=== PATIENT | female | born 1935 | race Hispanic/Latino ===

== ENCOUNTER 2017-04-10 18:01 | Inpatient (IN) | payer MEDICARE, OTHER ==
[2017-04-10] MEDS ORDERED: Sodium Chloride 0.9% 500 ML IV STA (18:12)
--- NOTE | 2017-04-10 18:17 | ED PDOC ---
Arrival/HPI - General Chief Complaint: Abdominal Pain Time Seen by Provider: 04/10/17 18:01 Historian: Patient - History of Present Illness Narrative History of Present Illness (Text): 04/10/17 18:14 A 82 year old female, whose past medical history includes hypertension, presents to the emergency department for abdominal pain and fever, which began yesterday. The patient reports her abdomen pain worsens towards the upper abdomen area and she also admits of having a mild cough. The patient denies any chest pain, shortness of breath, headaches, or any other complaints at this time. Time/Duration: 24 hours Symptom Onset: Sudden Symptom Course: Unchanged Activities at Onset: Light Context: Home Past Medical History - Provider Review Nursing Documentation Reviewed: Yes - Infectious Disease Hx of Infectious Diseases: None - Tetanus Immunization Tetanus Immunization: Unknown - Cardiac Hx Cardiac Disorders: Yes (cad) Hx Congestive Heart Failure: Yes Hx Hypertension: Yes Hx Pacemaker: Yes Hx Peripheral Vascular Disease: Yes - Pulmonary Hx Respiratory Disorders: No - Neurological Hx Neurological Disorder: Yes HX Cerebrovascular Accident: Yes Hx Dizziness: Yes - HEENT Hx HEENT Disorder: Yes (Wears eyeglasses) Hx Cataracts: Yes (right eye no sx) - Renal Hx Renal Disorder: Yes Hx Kidney Stones: Yes - Endocrine/Metabolic Hx Endocrine Disorders: No - Hematological/Oncological Hx Blood Disorders: Yes (blood transfusion) Hx Cancer: Yes (colon) - Integumentary Hx Dermatological Disorder: No - Musculoskeletal/Rheumatological Hx Musculoskeletal Disorders: Yes Hx Falls: Yes - Gastrointestinal Hx Gastrointestinal Disorders: Yes - Genitourinary/Gynecological Hx Genitourinary Disorders: No - Psychiatric Hx Psychophysiologic Disorder: No Hx Substance Use: No - Surgical History Hx Appendectomy: Yes Hx Cholecystectomy: Yes - Anesthesia Hx Anesthesia: Yes - Suicidal Assessment Feels Threatened In Home Enviroment: No Family/Social History - Physician Review Nursing Documentation Reviewed: Yes Family/Social History: No Known Family HX Smoking Status: Former Smoker Hx Alcohol Use: No Hx Substance Use: No Hx Substance Use Treatment: No Allergies/Home Meds Allergies/Adverse Reactions: Allergies levofloxacin [From Levaquin] Allergy (Verified 04/10/17 18:03) RASH methimazole Allergy (Verified 04/10/17 18:03) RASH moxifloxacin Allergy (Verified 04/10/17 18:03) RASH Penicillins Allergy (Verified 04/10/17 18:03) RASH vancomycin Allergy (Verified 04/10/17 18:03) DIZZINESS sulfa Allergy (Uncoded 04/10/17 18:03) DIZZINESS Home Medications: Home Meds Medication Instructions Recorded Confirmed Metoprolol Tartrate [Lopressor] 25 mg PO DAILY 02/05/16 04/10/17 Furosemide [Lasix] 0 mg PO PRN PRN 04/10/17 04/10/17 Review of Systems - Physician Review All systems were reviewed & negative as marked: Yes - Review of Systems Constitutional: Fevers Respiratory: absent: SOB Cardiovascular: absent: Chest Pain Gastrointestinal: Abdominal Pain Neurological: absent: Headache Physical Exam Vital Signs Reviewed: Yes Vital Signs Temp Pulse Resp BP Pulse Ox 04/10/17 21:46 100 F H 85 18 108/58 L 96 04/10/17 20:30 100.2 F H 92 H 18 124/59 L 96 04/10/17 19:45 97 H 16 118/54 L 96 04/10/17 19:31 98 H 16 122/61 96 04/10/17 19:00 101 F H 98 H 18 118/68 97 04/10/17 18:07 103 F H 85 16 130/63 97 Temperature: Febrile Blood Pressure: Normal Pulse: Regular Respiratory Rate: Normal Appearance: Positive for: Well-Appearing, Non-Toxic, Comfortable Pain Distress: None Mental Status: Positive for: Alert and Oriented X 3 - Systems Exam Head: Present: Atraumatic, Normocephalic Pupils: Present: PERRL Extroacular Muscles: Present: EOMI Conjunctiva: Present: Normal Mouth: Present: Moist Mucous Membranes Neck: Present: Normal Range of Motion Respiratory/Chest: Present: Clear to Auscultation, Good Air Exchange. No: Respiratory Distress, Accessory Muscle Use Cardiovascular: Present: Regular Rate and Rhythm, Normal S1, S2. No: Murmurs Abdomen: Present: Tenderness (upper abdominal tenderness ), Normal Bowel Sounds. No: Distention, Peritoneal Signs, Rebound, Guarding, McBurney's Point Tender Back: Present: Normal Inspection Upper Extremity: Present: Normal Inspection. No: Cyanosis, Edema Lower Extremity: Present: Normal Inspection. No: Edema Neurological: Present: GCS=15, CN II-XII Intact, Speech Normal Skin: Present: Warm, Dry, Normal Color. No: Rashes Psychiatric: Present: Alert, Oriented x 3, Normal Insight, Normal Concentration Medical Decision Making ED Course and Treatment: 04/10/17 18:18 Impression: A 82 year old female with a fever and abdominal pain. Plan: -- EKG -- Chest X-ray -- Labs -- Tylenol, Zofran, IV Fluids -- Urinalysis -- Reassess and disposition Prior Visits: Notes and results from previous visits were reviewed. The patient was last seen in the emergency department on 06/15/16 for shortness of breath. The patient was hospitalized. Progress Notes: 04/10/17 18:31 EKG: Ordered, reviewed, and independently interpreted the EKG. Rate : 65 BPM Rhythm : Pace rhythm Interpretation : No ST-segment elevations or depressions, no T-wave inversions, normal intervals. Comparison : No previous EKG for comparison. 04/10/17 21:17 Reviewed sono, US Abdomen shows: Liver: No space-occupying lesions are seen in the liver.There is hepatopedal flow in the main portal vein. Gallbladder and ducts: Gallbladder is surgically absent. There are dilated ducts in the both lobes of the liver. Common duct is dilated. Duct measures 2.56 cm in the garcia hepatis. Duct is dilated to the level of the pancreas. Distal duct measures approximately 2.5 cm in diameter. There are multiple shadowing stones in the common duct. Pancreas: Pancreas is partially obscured by bowel gas. Visualized portion is echogenic. Kidneys: Kidneys are unremarkable. Spleen: Spleen is unremarkable. Aorta and inferior vena cava: Bowel gas limits evaluation of aorta and inferior vena cava IMPRESSION: Prior cholecystectomy, dilated intra-and extrahepatic biliary ducts with choledocholithiasis Additional findings as described above. case discussed with dr cancino. recommends iv antibiotics. 04/10/17 21:[address] De Jesus, covering for Dr. Garrido, who is aware and agrees with plan. Pt will be admitted to Telemetry for pancreatitis and cholangitis under Dr. Garrido's service. Requests Dr. Rosas, Dr. Cardenas, and Dr. Cancino on consult. 04/10/17 21:45 Case discussed with regional vice president surgical sales education sales consultant, who is aware and agrees to evaluate pt. - Lab Interpretations Lab Results: 04/10/17 18:15 04/10/17 18:15 Lab Results 04/10/17 19:00: Urine Color Yellow, Urine Appearance Clear, Urine pH 6.0, Ur Specific [place] 1.020, Urine Protein 30 H, Urine Glucose (UA) Negative, Urine Ketones 15 H, Urine Blood Small H, Urine Nitrate Positive H, Urine Bilirubin Moderate H, Urine Urobilinogen 2.0 H, Ur Leukocyte Esterase Small H, Urine RBC 5 - 10, Urine WBC 10 - 15, Ur Epithelial Cells 6 - 8, Amorphous Sediment Small, Urine Bacteria Many, Urine Other [place]yeast 04/10/17 18:15: Sodium 133, Chloride 98, Potassium 3.3 L, Carbon Dioxide 22, Anion Gap 16, BUN 16, Creatinine 0.9, Est GFR ( Amer) > 60, Est GFR (Non- Af Amer) > 60, Random Glucose 121 H, Calcium 9.6, Total Bilirubin 6.7 H, Direct Bilirubin 5.4 H, AST 221 H, ALT 170 H, Alkaline Phosphatase 178 H, Lactate Dehydrogenase 475, Total Creatine Kinase 21 L, Troponin I 0.07, Total Protein 7.0, Albumin 3.9, Globulin 3.1, Albumin/Globulin Ratio 1.3, Amylase 734 H, Lipase 91596 H 04/10/17 18:15: PT 12.7 H, INR 1.18 H, APTT 26.8 04/10/17 18:15: WBC 13.4 H D, RBC 4.30, Hgb 12.0, Hct 36.4, MCV 84.7, MCH 27.9, MCHC 33.0, RDW 13.5, Plt Count 168, MPV 11.1 H, Gran % 93.4 H, Lymph % (Auto) 2.7 L, Andrews % (Auto) 3.8, Eos % (Auto) 0.0 L, Baso % (Auto) 0.1, Gran # 12.47 H , Lymph # 0.4 L, Andrews # 0.5, Eos # 0.0, Baso # 0.01, Neutrophils % (Manual) 90 H , Band Neutrophils % 5 H, Lymphocytes % (Manual) 3 L, Monocytes % (Manual) 2, Platelet Evaluation Normal, Anisocytosis (manual) Slight 04/10/17 18:15: pO2 42, VBG pH 7.39, VBG pCO2 40.0, VBG HCO3 24.2, VBG Total CO2 25.4, VBG O2 Sat (Calc) 85.1 H, VBG Base Excess -0.7 L, VBG Potassium 3.3 L , Sodium 133.0, Chloride 97.0 L, Glucose 123 H, Lactate 2.8 H, FiO2 21.0, Venous Blood Potassium 3.3 L I have reviewed the lab results: Yes - RAD Interpretation Radiology Orders: 04/10/17 18:12 CHEST PORTABLE [RAD] Stat 04/10/17 18:57 ABDOMEN COMPLETE [US] Stat Wood Heel Flap Trimmer: ED Physician, Radiologist - EKG Interpretation Interpreted by ED Physician: Yes Type: 12 lead EKG - Medication Orders Current Medication Orders: Aztreonam (Azactam 1 Gm) 100 mls @ 100 mls/hr IVPB Q8 JACKY PRN Reason: Protocol Stop: 04/19/17 22:31 Last Admin: 04/11/17 14:36 Dose: 100 mls/hr Metronidazole (Flagyl) 500 mg in 100 mls @ 100 mls/hr IVPB Q8 JACKY PRN Reason: Protocol Stop: 04/19/17 22:32 Last Admin: 04/11/17 13:00 Dose: 100 mls/hr Linezolid (Zyvox 600mg/300ml D5w) 600 mg in 300 mls @ 200 mls/hr IVPB Q12 JACKY PRN Reason: Protocol Stop: 04/19/17 22:33 Last Admin: 04/11/17 09:46 Dose: 200 mls/hr Lactated Ringer's (Lactated Ringer's) 1,000 mls @ 100 mls/hr IV .Q10H [facility] Last Admin: 04/11/17 09:27 Dose: Metoprolol Tartrate (Lopressor) 25 mg PO DAILY [facility] Last Admin: 04/11/17 11:53 Dose: 25 mg Morphine Sulfate (Morphine) 2 mg IVP Q4H PRN PRN Reason: Pain, moderate (4-7) Last Admin: 04/11/17 12:43 Dose: 2 mg Re-Assess: MARQUIS Pain Assessment Document 04/11/17 13:43 RDS (Rec: 04/11/17 14:44 RDS [id number]) Pain Reassessment Is this a pain reassessment? Yes Sleep Is patient sleeping during reassessment? No Presence of Pain Presence of Pain No Ondansetron HCl (Zofran Inj) 8 mg IM Q6 PRN PRN Reason: Nausea/Vomiting Discontinued Medications Acetaminophen (Tylenol 325mg Tab) 975 mg PO STAT STA Stop: 04/10/17 18:13 Last Admin: 04/10/17 18:31 Dose: 975 mg Re-Assess: MARQUIS Pain/Vitals Document 04/10/17 19:31 SRE (Rec: 04/10/17 20:26 [id number]) Pain Reassessment Is This A Pain ReAssessment? Yes Sleep Is patient sleeping during reassessment? No Presence of Pain Presence of Pain Yes Pain Scale Used Pain Scale Used Numeric Location Pain Location Body Site Abdomen Description Burning Scale Used Numeric Sodium Chloride (Sodium Chloride 0.9%) 500 mls @ 999 mls/hr IV .Q31M STA Stop: 04/10/17 18:42 Last Admin: 04/10/17 18:30 Dose: 999 mls/hr Metronidazole (Flagyl) 500 mg in 100 mls @ 100 mls/hr IVPB STAT STA PRN Reason: Protocol Stop: 04/10/17 19:54 Last Admin: 04/10/17 20:00 Dose: 100 mls/hr Ceftriaxone Sodium (Rocephin 1 Gram Ivpb) 1 gm in 100 mls @ 200 mls/hr IVPB STAT STA PRN Reason: Protocol Stop: 04/10/17 19:24 Last Admin: 04/10/17 19:12 Dose: 200 mls/hr Sodium Chloride (Sodium Chloride 0.9%) 1,000 mls @ 999 mls/hr IV .Q1H1M STA Stop: 04/10/17 20:42 Last Admin: 04/10/17 20:32 Dose: 999 mls/hr Lactated Ringer's (Lactated Ringer's) 1,000 mls @ 150 mls/hr IV .Q6H40M [facility] Last Admin: 04/10/17 22:06 Dose: 150 mls/hr Sodium Chloride (Sodium Chloride 0.9%) 1,000 mls @ 80 drops/hr IV .Q24H [facility] Potassium Chloride (Potassium Chloride 10 Meq/100 Ml) 10 meq in 100 mls @ 100 mls/hr IVPB Q2H [facility] Stop: 04/11/17 02:29 Last Admin: 04/11/17 02:58 Dose: 100 mls/hr Morphine Sulfate (Morphine) 2 mg IVP STAT STA Stop: 04/10/17 19:44 Last Admin: 04/10/17 20:30 Dose: 2 mg Re-Assess: MARQUIS Pain Assessment Document 04/10/17 21:30 SRE (Rec: 04/10/17 22:21 SRE [id number]) Pain Reassessment Is this a pain reassessment? Yes Sleep Is patient sleeping during reassessment? No Presence of Pain Presence of Pain No Ondansetron HCl (Zofran Inj) 4 mg IVP STAT STA Stop: 04/10/17 18:12 Last Admin: 04/10/17 18:32 Dose: 4 mg Pneumococcal Polyvalent Vaccine (Pneumovax 23 Vaccine) 0.5 ml IM .ONCE ONE Stop: 04/10/17 23:15 Last Admin: 04/11/17 04:53 Dose: - Scribe Statement The provider has reviewed the documentation as recorded by the Keriibarabella Dale Provider Scribe Attestation: All medical record entries made by the Scribe were at my direction and personally dictated by me. I have reviewed the chart and agree that the record accurately reflects my personal performance of the history, physical exam, medical decision making, and the department course for this patient. I have also personally directed, reviewed, and agree with the discharge instructions and disposition. Disposition/Present on Arrival - Present on Arrival Any Indicators Present on Arrival: No History of DVT/PE: No History of Uncontrolled Diabetes: No Urinary Catheter: No History of Decub. Ulcer: No History Surgical Site Infection Following: None - Disposition Have Diagnosis and Disposition been Completed?: Yes Diagnosis: Cholangitis, Sepsis, Pancreatitis Disposition: HOSPITALIZED Disposition Time: 11:00 Condition: FAIR
[2017-04-10 18:46] LABS: ALB/GLOB RATIO 1.3 (1.1-1.8); ALKALINE PHOSPHATASE 178 U/L (38-133); ALT/SGPT 170 U/L (7-56); AMYLASE 734 U/L (35-125); AST/SGOT 221 U/L (15-39); BILIRUBIN,DIRECT 5.4 mg/dL (0.0-0.4); BILIRUBIN,TOTAL 6.7 mg/dL (0.2-1.3); BLOOD UREA NITROGEN 16 mg/dL (7-21); CALCIUM 9.6 mg/dL (8.4-10.5); CARBON DIOXIDE 22 mmol/L (21-33); CHLORIDE 98 mmol/L (98-107); GFR AFRICAN-AMERICAN > 60; GLUCOSE,RANDOM 121 mg/dL (70-110); POTASSIUM 3.3 mmol/L (3.6-5.0); SODIUM 133 mmol/L (132-148)
[2017-04-10 18:52] LABS: VENOUS BLOOD GAS BASE EXCESS -0.7 mmol/L (0.0-2.0); VENOUS BLOOD PH 7.39 (7.32-7.43)
[2017-04-10] MEDS ORDERED: metroNIDAZOLE IV 500 mg/100 ml 500 MG/100 ML BAG IVPB STA (18:55)
[2017-04-10] MEDS ORDERED: cefTRIAXone 1 gm 1 GM/100 ML BAG IVPB STA (18:55)
[2017-04-10 18:58] LABS: BASO # 0.01 K/mm3 (0.0-2.0); BASO % 0.1 % (0.0-3.0); GRAN # 12.47 (1.4-6.5); GRAN % 93.4 % (50.0-68.0); HEMATOCRIT 36.4 % (36.0-48.0); LYMPH # 0.4 (1.2-3.4); LYMPH % 2.7 % (22.0-35.0); MEAN CELL VOLUME 84.7 fl (80.0-105.0); MEAN CORPUSCULAR HEMOGLOBIN 27.9 pg (25.0-35.0); MEAN PLATELET VOLUME 11.1 fl (7.0-11.0); MONO # 0.5 (0.1-0.6); MONO % 3.8 % (1.0-6.0); PLATELET COUNT 168 10^3/uL (120.0-450.0); RED CELL DISTRIBUTION WIDTH 13.5 % (11.5-14.5); WHITE BLOOD COUNT 13.4 10^3/ul (4.5-11.0)
[2017-04-10 19:05] LABS: INR 1.18 (0.93-1.08); PARTIAL THROMBOPLASTIN TIME 26.8 Seconds (23.7-30.8)
[2017-04-10 19:20] LABS: LIPASE 11518 U/L (23-300)
[2017-04-10] MEDS ORDERED: Sodium Chloride 0.9% 1,000 ML IV STA (19:42)
[2017-04-10] MEDS ORDERED: Morphine 2 mg/ml ISec IVP STA (19:43)
[2017-04-10 19:52] LABS: URINE BILIRUBIN MODERATE (NEGATIVE); URINE BLOOD SMALL (NEGATIVE); URINE GLUCOSE (UA) NEGATIVE (NEGATIVE); URINE KETONE 15 mg/dL (NEGATIVE); URINE LEUKOCYTE ESTERASE SMALL Leu/uL (NEGATIVE); URINE PROTEIN 30 mg/dL (<30 mg/dL)
[2017-04-10 19:55] LABS: URINE APPEARANCE CLEAR (CLEAR); URINE COLOR YELLOW (YELLOW)
[2017-04-10 20:06] LABS: TROPONIN I 0.07 ng/mL
[2017-04-10 20:06] LABS: URINE BACTERIA MANY (NEG)
[2017-04-10 20:07] LABS: URINE AMORPHOUS SEDIMENT SMALL
[2017-04-10 20:48] LABS: BAND 5 % (0-2); NEUTROPHIL 90 % (50.0-70.0); PLATELET ESTIMATE NORMAL (NORMAL)
[2017-04-10 20:49] LABS: ANISOCYTOSIS SLIGHT
--- NOTE | 2017-04-10 20:53 | PCM.SEPTIC ---
Sepsis Progress Note - Reassessment Type Date of Evaluation: 04/10/17 Time of Evaluation: 07:00 Reassessment Type: Non-invasive reassessment - Non Invasive Reassessment Were the most recent vital sign reviewed: Yes Vital Sign (Latest): Temp Pulse Resp BP Pulse Ox 100.2 F H 92 H 18 124/59 L 96 04/10/17 20:30 04/10/17 20:30 04/10/17 20:30 04/10/17 20:30 04/10/17 20:30 Cardiovascular: Yes: Regular Rate, Rhythm Respiratory: Yes: Normal Breath Sounds Capillary Refill: Normal (Less than 2 sec) Pulses: Normal Radial, Normal Dorsalis Pedis, Normal Posterior Tibialis Skin: Normal Color, Warm
--- NOTE | 2017-04-10 20:58 | US ---
EXAM: US Abdomen Complete EXAM DATE/TIME: 04/10/2017 6:57 PM CLINICAL HISTORY: 82 years old, female; Pain; Abdominal pain; Other: Ruq; Prior surgery; Surgery date: 6+ months; Surgery type: Cholecystectomy; Additional info: Ruq pain eval cbd R/O cholangitis TECHNIQUE: Real-time ultrasound of the abdomen (complete) with image documentation. COMPARISON: CT - ABDOMEN W/WO CONTRAST 02/07/2016 8:18:30 AM FINDINGS: Liver: No space-occupying lesions are seen in the liver.There is hepatopedal flow in the main portal vein. Gallbladder and ducts: Gallbladder is surgically absent. There are dilated ducts in the both lobes of the liver. Common duct is dilated. Duct measures 2.56 cm in the garcia hepatis. Duct is dilated to the level of the pancreas. Distal duct measures approximately 2.5 cm in diameter. There are multiple shadowing stones in the common duct. Pancreas: Pancreas is partially obscured by bowel gas. Visualized portion is echogenic. Kidneys: Kidneys are unremarkable. Spleen: Spleen is unremarkable. Aorta and inferior vena cava: Bowel gas limits evaluation of aorta and inferior vena cava IMPRESSION: Prior cholecystectomy, dilated intra-and extrahepatic biliary ducts with choledocholithiasis Additional findings as described above.
[2017-04-10] MEDS ORDERED: Lactated Ringer's 1,000 ML IV SCH (21:45)
[2017-04-10] MEDS ORDERED: Sodium Chloride 0.9% 1,000 ML IV SCH (21:50)
[2017-04-10] MEDS ORDERED: Morphine 2 mg/ml ISec IVP PRN (21:54)
[2017-04-10 22:40] LABS: VENOUS BLOOD GAS BASE EXCESS -1.8 mmol/L (0.0-2.0); VENOUS BLOOD PH 7.36 (7.32-7.43)
--- NOTE | 2017-04-10 22:57 | CP.PCM.CON ---
<Caitlyn Gifford - Last Filed: 04/10/17 22:47> History of Present Illness - History of Present Illness History of Present Illness: General Surgery Dr. Cardenas 82 y/o F w/ PMHx of HTN, CHF, CAD, PVD, CVA BIBA to the ED c/o RUQ pain, N/V. Pt states pain began after eating English food on . Pt reports N/V began Wednesday which pt believed 2/2 indigestion. Pt admits to fever and chills this AM which pompted pt call the ambulance. Pt admits to dizziness/ lightheadedness after vomiting. Pt denies CP, SOB, orthostatics, palpitations, D /C, numbness/tingling, dysuria. PMHx: see above, nephrolithiasis Meds: reviewed in chart Allergies: levofloxacin, methimazole, PCN, vanc, sulfa PSHx: pacemaker, cholecystectomy, appendectomy, hernia repair, bowel resection SHx: denies tobacco, EtOH, drugs FHx: colon Ca Review of Systems - Review of Systems All systems: reviewed and no additional remarkable complaints except (see HPI) Past Patient History - Infectious Disease Hx of Infectious Diseases: None - Tetanus Immunizations Tetanus Immunization: Unknown - Past Social History Smoking Status: Former Smoker - CARDIAC Hx Cardiac Disorders: Yes (cad) Hx Congestive Heart Failure: Yes Hx Hypertension: Yes Hx Pacemaker: Yes Hx Peripheral Vascular Disease: Yes - PULMONARY Hx Respiratory Disorders: No - NEUROLOGICAL Hx Neurological Disorder: Yes HX Cerebrovascular Accident: Yes Hx Dizziness: Yes - HEENT Hx HEENT Problems: Yes (Wears eyeglasses) Hx Cataracts: Yes (right eye no sx) - RENAL Hx Chronic Kidney Disease: Yes Hx Kidney Stones: Yes - ENDOCRINE/METABOLIC Hx Endocrine Disorders: No - HEMATOLOGICAL/ONCOLOGICAL Hx Blood Disorders: Yes (blood transfusion) Hx Cancer: Yes (colon) - INTEGUMENTARY Hx Dermatological Problems: No - MUSCULOSKELETAL/RHEUMATOLOGICAL Hx Musculoskeletal Disorders: Yes Hx Falls: Yes - GASTROINTESTINAL Hx Gastrointestinal Disorders: Yes - GENITOURINARY/GYNECOLOGICAL Hx Genitourinary Disorders: No - PSYCHIATRIC Hx Psychophysiologic Disorder: No Hx Substance Use: No - SURGICAL HISTORY Hx Appendectomy: Yes Hx Cholecystectomy: Yes - ANESTHESIA Hx Anesthesia: Yes Meds Allergies/Adverse Reactions: Allergies Allergy/AdvReac Type Severity Reaction Status Date / Time levofloxacin [From Levaquin] Allergy RASH Verified 04/10/17 18:03 methimazole Allergy RASH Verified 04/10/17 18:03 moxifloxacin Allergy RASH Verified 04/10/17 18:03 Penicillins Allergy RASH Verified 04/10/17 18:03 vancomycin Allergy DIZZINESS Verified 04/10/17 18:03 sulfa Allergy DIZZINESS Uncoded 04/10/17 18:03 - Medications Medications: Current Medications Lactated Ringer's (Lactated Ringer's) 1,000 mls @ 150 mls/hr IV .Q6H40M JACKY Last Admin: 04/10/17 22:06 Dose: 150 mls/hr Aztreonam (Azactam 1 Gm) 100 mls @ 100 mls/hr IVPB Q8 JACKY PRN Reason: Protocol Stop: 04/19/17 22:31 Metronidazole (Flagyl) 500 mg in 100 mls @ 100 mls/hr IVPB Q8 JACKY PRN Reason: Protocol Stop: 04/19/17 22:32 Linezolid (Zyvox 600mg/300ml D5w) 600 mg in 300 mls @ 200 mls/hr IVPB Q12 JACKY PRN Reason: Protocol Stop: 04/19/17 22:33 Metoprolol Tartrate (Lopressor) 25 mg PO DAILY [facility] Morphine Sulfate (Morphine) 2 mg IVP Q4H PRN PRN Reason: Pain, moderate (4-7) Ondansetron HCl (Zofran Inj) 8 mg IM Q6 PRN PRN Reason: Nausea/Vomiting Physical Exam - Constitutional Appears: Non-toxic, No Acute Distress - Head Exam Head Exam: NORMAL INSPECTION - Eye Exam Eye Exam: Normal appearance - ENT Exam ENT Exam: Mucous Membranes Moist - Respiratory Exam Respiratory Exam: NORMAL BREATHING PATTERN. absent: Accessory Muscle Use, Respiratory Distress - Cardiovascular Exam Cardiovascular Exam: absent: Bradycardia, Tachycardia - GI/Abdominal Exam GI & Abdominal Exam: Soft, Tenderness (RUQ TTP). absent: Distended, Guarding, Rebound - Extremities Exam Extremities exam: Positive for: normal inspection - Neurological Exam Neurological exam: Alert, Oriented x3 - Psychiatric Exam Psychiatric exam: Normal Affect, Normal Mood - Skin Skin Exam: Dry, Intact, Normal Color, Warm Results - Vital Signs Recent Vital Signs: Last Vital Signs Temp 100 F H 04/10/17 21:46 Pulse 85 04/10/17 21:46 Resp 18 04/10/17 21:46 BP 108/58 L 04/10/17 21:46 Pulse Ox 96 04/10/17 21:46 - Labs Result Diagrams: 04/10/17 18:15 04/10/17 18:15 Labs: Laboratory Results - last 24 hr 04/10/17 22:00 pO2 96 H VBG pH 7.36 VBG pCO2 42.0 VBG HCO3 23.7 VBG Total CO2 25.0 VBG O2 Sat (Calc) 99.8 H VBG Base Excess -1.8 L VBG Potassium 3.5 L Sodium 134.0 Chloride 104.0 Glucose 104 Lactate 1.3 FiO2 21.0 Venous Blood Potassium 3.5 L - Imaging and Cardiology US - abdomen Status: Image reviewed by me, Report reviewed by me Assessment & Plan - Assessment and Plan (Free Text) Assessment: 82 y/o F w/ ascending cholangitis s/p cholecystectomy in 2013 - IV Abx per ID - Pain management - anti-emetics - Pt needs ERCP - f/u GI recs - monitor vitals - NPO vs CLD Pt discussed w/ Dr. Ronald Gifford DO PGY2 <Bin Cardenas - Last Filed: 04/12/17 10:03> Meds - Medications Medications: Current Medications Hydromorphone HCl (Dilaudid) 0.5 mg IVP Q4H PRN PRN Reason: Pain, moderate (4-7) Last Admin: 04/11/17 21:53 Dose: 0.5 mg Aztreonam (Azactam 1 Gm) 100 mls @ 100 mls/hr IVPB Q8 JACKY PRN Reason: Protocol Stop: 04/19/17 22:31 Last Admin: 04/12/17 05:09 Dose: 100 mls/hr Metronidazole (Flagyl) 500 mg in 100 mls @ 100 mls/hr IVPB Q8 JACKY PRN Reason: Protocol Stop: 04/19/17 22:32 Last Admin: 04/12/17 05:10 Dose: 100 mls/hr Linezolid (Zyvox 600mg/300ml D5w) 600 mg in 300 mls @ 200 mls/hr IVPB Q12 JACKY PRN Reason: Protocol Stop: 04/19/17 22:33 Last Admin: 04/11/17 21:54 Dose: 200 mls/hr Lactated Ringer's (Lactated Ringer's) 1,000 mls @ 100 mls/hr IV .Q10H [facility] Last Admin: 04/12/17 05:10 Dose: Not Given Metoprolol Tartrate (Lopressor) 25 mg PO DAILY [facility] Last Admin: 04/11/17 11:53 Dose: 25 mg Ondansetron HCl (Zofran Inj) 8 mg IM Q6 PRN PRN Reason: Nausea/Vomiting Results - Vital Signs Recent Vital Signs: Last Vital Signs Temp 98.3 F 04/12/17 06:00 Pulse 88 04/12/17 06:00 Resp 20 04/12/17 06:00 BP 159/78 H 04/12/17 06:00 Pulse Ox 96 04/12/17 06:00 - Labs Result Diagrams: 04/12/17 05:15 04/12/17 05:15 Labs: Laboratory Results - last 24 hr 04/11/17 04/12/17 04/12/17 09:30 05:15 05:15 WBC 14.3 H D RBC 3.89 Hgb 10.8 L Hct 33.5 L MCV 86.1 MCH 27.8 MCHC 32.2 RDW 14.3 Plt Count 149 MPV 11.3 H Gran % 77.1 H Lymph % (Auto) 12.0 L [place] % (Auto) 9.9 H Eos % (Auto) 0.9 L Baso % (Auto) 0.1 Gran # 11.02 H Lymph # 1.7 [place] # 1.4 H Eos # 0.1 Baso # 0.01 PT INR APTT Sodium 137 133 Potassium 4.2 4.1 Chloride 104 103 Carbon Dioxide 23 22 Anion Gap 14 12 BUN 14 14 Creatinine 0.9 0.9 Est GFR ( Amer) > 60 > 60 Est GFR (Non-Af Amer) > 60 > 60 Random Glucose 96 85 Calcium 8.5 8.7 Magnesium 1.2 L Total Bilirubin 4.8 H 3.4 H AST 127 H 69 H ALT 125 H 90 H Alkaline Phosphatase 121 132 Total Protein 6.2 6.1 Albumin 3.3 3.0 Globulin 2.9 3.1 Albumin/Globulin Ratio 1.1 1.0 L Amylase 216 H Lipase 468 H 08/28/17 08/28/17 05:15 08:12 WBC RBC Hgb Hct MCV MCH MCHC RDW Plt Count MPV Gran % Lymph % (Auto) [place] % (Auto) Eos % (Auto) Baso % (Auto) Gran # Lymph # [place] # Eos # Baso # PT 12.7 H INR 1.18 H APTT 28.5 Sodium Potassium Chloride Carbon Dioxide Anion Gap BUN Creatinine Est GFR ( Amer) Est GFR (Non-Af Amer) Random Glucose Calcium Magnesium Total Bilirubin AST ALT Alkaline Phosphatase Total Protein Albumin Globulin Albumin/Globulin Ratio Amylase Lipase 54 Assessment & Plan - Assessment and Plan (Free Text) Assessment: Dx: Cholangitis/Pancreatitis HTCAD COBPD Kris: EUS/ERCP with surgery backup No surrgery recommended now Chadwick Cardenas MD FACS
--- NOTE | 2017-04-10 23:05 | CP.PCM.PCO ---
Physician Communication Note - Physician Communication Note Physician Communication Note: Cholangitis-pancreatitis/Needs EUS/ERCP
[2017-04-10 23:14] VITALS: BMI 25.7
[2017-04-10] MEDS ORDERED: Pneumococcal 23-Valent Vaccine IM ONE (23:14)
[2017-04-10] MEDS: Linezolid 600 mg in D5W 300 ml 600 MG/300 ML BAG IVPB SCH (23:40)
[2017-04-10] MEDS: Lactated Ringer's 1,000 ML IV SCH (23:41)
[2017-04-11] MEDS: Aztreonam 1 Gm in NS 100mL 100 ML IVPB SCH ×4 (02:58→21:53)
[2017-04-11] MEDS: metroNIDAZOLE IV 500 mg/100 ml 500 MG/100 ML BAG IVPB SCH ×4 (04:46→21:54)
--- NOTE | 2017-04-11 08:59 | CP.PCM.PN ---
Subjective - Date & Time of Evaluation Date of Evaluation: 04/11/17 Time of Evaluation: 08:55 - Subjective Subjective: General Surgery Dr. Cardenas Pt S&E@bedside. NAEO. Pt reports cholecystectomy performed ~10yrs ago. Pt admits some RUQ pain. denies F/C, N/C, D/C. Pt is NPO. Objective - Vital Signs/Intake and Output Vital Signs (last 24 hours): Temp Pulse Resp BP Pulse Ox 97.8 F 78 20 121/75 97 04/11/17 05:21 04/11/17 05:21 04/11/17 05:21 04/11/17 05:21 04/11/17 05:21 Intake and Output: 04/11/17 04/11/17 06:59 18:59 Intake Total 700 Output Total 900 Balance -200 - Medications Medications: Current Medications Aztreonam (Azactam 1 Gm) 100 mls @ 100 mls/hr IVPB Q8 JACKY PRN Reason: Protocol Stop: 04/19/17 22:31 Last Admin: 04/11/17 05:03 Dose: Not Given Metronidazole (Flagyl) 500 mg in 100 mls @ 100 mls/hr IVPB Q8 JACKY PRN Reason: Protocol Stop: 04/19/17 22:32 Last Admin: 04/11/17 05:03 Dose: Not Given Linezolid (Zyvox 600mg/300ml D5w) 600 mg in 300 mls @ 200 mls/hr IVPB Q12 JACKY PRN Reason: Protocol Stop: 04/19/17 22:33 Last Admin: 04/10/17 23:40 Dose: 200 mls/hr Lactated Ringer's (Lactated Ringer's) 1,000 mls @ 100 mls/hr IV .Q10H JACKY Last Admin: 04/10/17 23:41 Dose: 100 mls/hr Metoprolol Tartrate (Lopressor) 25 mg PO DAILY JACKY Morphine Sulfate (Morphine) 2 mg IVP Q4H PRN PRN Reason: Pain, moderate (4-7) Ondansetron HCl (Zofran Inj) 8 mg IM Q6 PRN PRN Reason: Nausea/Vomiting - Labs Labs: PT 12.7 Seconds (9.9-11.8) H 04/10/17 18:15 INR 1.18 (0.93-1.08) H 04/10/17 18:15 APTT 26.8 Seconds (23.7-30.8) 04/10/17 18:15 - Constitutional Appears: Non-toxic, No Acute Distress - Head Exam Head Exam: NORMAL INSPECTION - Eye Exam Eye Exam: Normal appearance - ENT Exam ENT Exam: Mucous Membranes Moist Additional comments: Icteric mucous membranes - Respiratory Exam Respiratory Exam: NORMAL BREATHING PATTERN. absent: Accessory Muscle Use, Respiratory Distress - Cardiovascular Exam Cardiovascular Exam: absent: Bradycardia, Tachycardia - GI/Abdominal Exam GI & Abdominal Exam: Soft, Tenderness (RUQ TTP). absent: Distended, Guarding, Rigid, Rebound - Extremities Exam Extremities Exam: Normal Inspection - Neurological Exam Neurological Exam: Alert, Awake, Oriented x3 - Psychiatric Exam Psychiatric exam: Normal Affect, Normal Mood - Skin Skin Exam: Dry, Intact, Warm Assessment and Plan - Assessment and Plan (Free Text) Assessment: 82 y/o F w/ ascending cholangitis - IV ABx per ID - Diet per GI - ERCP needed - Pt not candidate for MRCP due to ICD - pain management - continue medical management Pt discussed w/ Dr. Ronald Gifford DO PGY2
[2017-04-11] MEDS: Lactated Ringer's 1,000 ML IV SCH ×2 (09:27→18:50)
[2017-04-11] MEDS: Linezolid 600 mg in D5W 300 ml 600 MG/300 ML BAG IVPB SCH ×2 (09:46→21:54)
[2017-04-11 09:58] LABS: BASO # 0.01 K/mm3 (0.0-2.0); BASO % 0.1 % (0.0-3.0); GRAN # 15.9 (1.4-6.5); GRAN % 81.1 % (50.0-68.0); HEMATOCRIT 34.6 % (36.0-48.0); LYMPH # 2.1 (1.2-3.4); LYMPH % 10.7 % (22.0-35.0); MEAN CELL VOLUME 86.5 fl (80.0-105.0); MEAN CORPUSCULAR HEMOGLOBIN 27.5 pg (25.0-35.0); MEAN CORPUSCULAR HGB CONC 31.8 g/dl (31.0-37.0); MEAN PLATELET VOLUME 10.7 fl (7.0-11.0); MONO # 1.6 (0.1-0.6); MONO % 8.1 % (1.0-6.0); RED CELL DISTRIBUTION WIDTH 14.1 % (11.5-14.5); WHITE BLOOD COUNT 19.6 10^3/ul (4.5-11.0)
[2017-04-11 10:05] LABS: ALB/GLOB RATIO 1.1 (1.1-1.8); ALKALINE PHOSPHATASE 121 U/L (38-133); ALT/SGPT 125 U/L (7-56); AMYLASE 216 U/L (35-125); AST/SGOT 127 U/L (15-39); BILIRUBIN,TOTAL 4.8 mg/dL (0.2-1.3); BLOOD UREA NITROGEN 14 mg/dL (7-21); CALCIUM 8.5 mg/dL (8.4-10.5); CARBON DIOXIDE 23 mmol/L (21-33); CHLORIDE 104 mmol/L (98-107); GFR AFRICAN-AMERICAN > 60; GLUCOSE,RANDOM 96 mg/dL (70-110); LIPASE 468 U/L (23-300); POTASSIUM 4.2 mmol/L (3.6-5.0); SODIUM 137 mmol/L (132-148); TOTAL PROTEIN 6.2 g/dL (5.8-8.3)
--- NOTE | 2017-04-11 13:56 | RAD ---
HISTORY: sepsis COMPARISON: Comparison made with chest radiograph 06/15/2016. This examination was also read in conjunction with CT scan abdomen pelvis 04/11/2017 which imaged both lung bases. FINDINGS: LUNGS: Small bilateral effusions not well delineated on this study. Lungs are hyperinflated consistent with underlying chronic changes of COPD. Small calcified granuloma right lateral lower lung field unchanged. PLEURA: No significant pleural effusion identified, no pneumothorax apparent. CARDIOVASCULAR: Re- demonstrated is a single lead pacemaker. Heart is upper limits of normal/ borderline enlarged. . OSSEOUS STRUCTURES: No significant abnormalities. VISUALIZED UPPER ABDOMEN: Normal. OTHER FINDINGS: None. IMPRESSION: Small bilateral effusions not well delineated on this study. Lungs are hyperinflated consistent with underlying chronic changes of COPD. Small calcified granuloma right lateral lower lung field unchanged. .
--- NOTE | 2017-04-11 17:30 | CT ---
PROCEDURE: CT Abdomen and Pelvis without intravenous contrast HISTORY: Acute pancreatitis COMPARISON: Comparison made with CT scan of the abdomen and pelvis dated 02/07/2016. Comparison also made with CT scan chest 06/16/2016 which imaged the upper abdomen. Both TECHNIQUE: Radiation dose: Total exam DLP = 397.93 mGy-cm. This CT exam was performed using one or more of the following dose reduction techniques: Automated exposure control, adjustment of the mA and/or kV according to patient size, and/or use of iterative reconstruction technique. FINDINGS: LOWER THORAX: Small bilateral effusions and minor bibasilar atelectasis. LIVER: Liver exhibits normal size. There may be some minor central intrahepatic biliary ductal dilatation GALLBLADDER AND BILE DUCTS: Status post cholecystectomy. Dilatation of the common bile duct. PANCREAS: Note that the pancreatic head is poorly delineated on this noncontrast study due to adjacent partially collapsed stomach and previously noted dilated common bile duct. Note that the possibility of mild left pancreatitis involving the head of the pancreas not excluded. The body and tail are atrophic and fatty replaced with a calcific density again noted along the pancreatic tail region unchanged. Correlation with serum lipase and amylase recommended. SPLEEN: Spleen exhibits normal size and attenuation pattern. ADRENALS: There are no adrenal lesions seen. KIDNEYS AND URETERS: Kidneys are relatively symmetric in size. Small amount of fluid and infiltration changes seen in the right perinephric fat nonspecific. Minimal infiltration changes left perinephric fat. Prominent proximal left ureter. No evidence of nephrolithiasis. Six partially calcified atherosclerotic plaque seen along the abdominal aorta and iliac arteries. No evidence of aneurysm. BOWEL: Evaluation of the bowel is limited due to the lack of oral contrast material. Stomach is incompletely distended which presumably accounts for slight thick-walled appearance. Visualized loops of small bowel exhibit normal contour and caliber. No evidence of acute mechanical small bowel obstruction. . Stool and air seen throughout the large bowel. There appears to be an anastomosis along the proximal sigmoid colon. Clinical correlation with surgical history. Surgical clips left mid and lower abdomen. Diverticulosis without definitive radiographic evidence of acute diverticulitis APPENDIX: Radiopaque linear - nodular density seen in the regional wall of the posterior cecum; rule out prior appendectomy surgery. Clinical correlation recommended. PERITONEUM: Unremarkable. No free fluid. No free air. Surgical clips left mid and lower abdomen. Changes of the prior ventral wall hernia repair. LYMPH NODES: No significant adenopathy. BLADDER: Urinary bladder is incompletely distended which may account for slight thick-walled appearance. The possibility of a cystitis not excluded. REPRODUCTIVE: Unremarkable as visualized. BONES: Mild multilevel degenerative spondylosis of the lower thoracic and lumbar spine OTHER FINDINGS: None. IMPRESSION: Evaluation of the pancreas is limited as above. Questionable edematous changes and prominence of the pancreatic head ; rule out pancreatitis ; correlation with serum lipase and amylase recommended. Status post cholecystectomy with moderate dilatation of the common bile duct with mild intrahepatic biliary ductal dilatation. Small bilateral effusions and minor bibasilar atelectasis. Small amount of perinephric fluid and infiltration right kidney. Minimal infiltration seen within the left perinephric fat nonspecific. Postoperative changes of hernia repair. Anastomosis noted along the sigmoid colon ; clinical correlation with surgical history recommended. Findings also suggest prior appendectomy however clinical correlation is recommended. Diverticulosis without evidence of diverticulitis
--- NOTE | 2017-04-11 20:09 | CP.PCM.HP ---
History of Present Illness - History of Present Illness History of Present Illness: patient is an 82 year old female admitted with abdominal pain, nausea, vomiting and fever. She had abdominal pain for 3 days. She came to ER when it was unbearable. CT abdomen showed prominent pancreatic head. Dilated exta and intrahepatic biliary ducts. Pancreatic enzymes elevated. She has remote history of colon cancer, has been in remission. Hypertension controlled on current meds. Present on Admission - Present on Admission Any Indicators Present on Admission: No Review of Systems - Review of Systems Systems not reviewed;Unavailable: Acuity of Condition - Constitutional Constitutional: As Per HPI, Fatigue, Weakness - EENT Eyes: absent: As Per HPI, Blind Spots, Blurred Vision, Change in Vision, Decreased Night Vision, Diplopia, Discharge, Dry Eye, Exophthalmos, Floaters, Irritation, Itchy Eyes, Loss of Peripheral Vision, Pain, Photophobia, Requires Corrective Lenses, Sees Flashes, Spots in Vision, Tunnel Vision, Other Visual Disturbances, Loss of Vision, Other Ears: absent: As Per HPI, Decreased Hearing, Ear Discharge, Ear Pain, Tinnitus, Abnormal Hearing, Disequilibrium, Dizziness, Other Nose/Mouth/Throat: absent: As Per HPI, Epistaxis, Nasal Congestion, Nasal Discharge, Nasal Obstruction, Nasal Trauma, Nose Pain, Post Nasal Drip, Sinus Pain, Sinus Pressure, Bleeding Gums, Change in Voice, Dental Pain, Dry Mouth, Dysphagia, Halitosis, Hoarsness, Lip Swelling, Mouth Lesions, Mouth Pain, Odynophagia, Sore Throat, Throat Swelling, Tongue Swelling, Facial Pain, Neck Pain, Neck Mass, Other - Breasts Breasts: absent: As Per HPI, Change in Shape, Mass, Pain, Nipple Discharge, Nipple Inversion, Skin Changes, Swelling, Other - Cardiovascular Cardiovascular: absent: As Per HPI, Acrocyanosis, Chest Pain, Chest Pain at Rest , Chest Pain with Activity, Claudication, Diaphoresis, Dyspnea, Dyspnea on Exertion, Edema, Irregular Heart Rhythm, Pain Radiating to Arm/Neck/Jaw, Leg Edema, Leg Ulcers, Lightheadedness, Orthopnea, Palpitations, Paroxysmal Nocturnal Dyspnea, Pedal Edema, Radiating Pain, Rapid Heart Rate, Slow Heart Rate, Syncope, Other - Respiratory Respiratory: absent: As Per HPI, Cough, Dyspnea, Hemoptysis, Dyspnea on Exertion , Wheezing, Snoring, Stridor, Pain on Inspiration, Chest Congestion, Excessive Mucous Production, Change in Mucous Color, Pain with Coughing, Other - Gastrointestinal Gastrointestinal: As Per HPI - Genitourinary Genitourinary: absent: As Per HPI, Change in Urinary Stream, Difficulty Urinating, Dysuria, Flank Pain, Hematuria, Pyuria, Nocturia, Urinary Incontinence, Urinary Frequency, Urinary Hesitance, Urinary Urgency, Voiding Freq/Small Amts, Freq UTI, Hx Renal/Bladder Calculi, Hx /Renal Surgery, Bladder Distension, Other - Reproductive: Female Reproductive:Female: absent: As Per HPI, Amenorrhea, Amenorrhea/ Control, Currently Menstual, Cycle <21 Days, Cycle >35 Days, Cycle Variable, Menses 1-7 Days, Menses >/= 8 Days, Menses Variable, Cycle > 4 Weeks Between, No Menses for 6 Months, Heavy Menses, Light Menses, Normal Menses, Spotting Between Cycles , S/P Hysterectomy, Menopausal, Post Menopausal, Premenarche, Abnormal Vaginal Bleeding, Dysmenorrhea, Dyspareunia, Genital Lesions, Genital Pruritis, Pelvic Pain, Prolapse Symptoms, Sexual Dysfunction, Vaginal Discharge, Vaginal Dryness , Vaginal Odor, Vaginal Pruritis, Other - Musculoskeletal Musculoskeletal: absent: As Per HPI, Abnormal Gait, Arthralgias, Atrophy, Back Pain, Deformity, Joint Swelling, Limited Range of Motion, Loss of Height, Muscle Cramps, Muscle Weakness, Myalgias, Neck Pain, Numbness, Radiating Pain into Limb, Stiffness, Tingling, Other - Integumentary Integumentary: absent: As Per HPI, Acne, Alopecia, Bleeding Lesions, Change in Hair, Change in Nails, Change in Pigmentation, Changing Lesions, Dry Skin, Erythema, Furuncle, Hirsutism, Lesions, New Lesions, Non-Healing Lesions, Photosensitivity, Pruritus, Rash, Skin Pain, Skin Ulcer, Sores, Striae, Swelling , Unusual Bruising, Wounds, Jaundice, Other - Neurological Neurological: absent: As Per HPI, Abnormal Gait, Abnormal Hearing, Abnormal Movements, Abnormal Speech, Behavioral Changes, Burning Sensations, Confusion, Convulsions, Disequilibrium, Dizziness, Numbness, Focal Weakness, Frequent Falls , Headaches, Lack of Coordination, Loss of Vision, Memory Loss, Paresthesias, Radicular Pain, Restless Legs, Sensory Deficit, Syncope, Tingling, Tremor, Vertigo, Weakness, Other Visual Disturbances, Other - Psychiatric Psychiatric: absent: As Per HPI, Abnormal Sleep Pattern, Anhedonia, Anxiety, Auditory Hallucinations, Behavioral Changes, Change in Appetite, Change in Libido, Confusion, Depression, Difficulty Concentrating, Hallucinations, Homicidal Ideation, Hopelessness, Irritability, Memory Loss, Mood Swings, Panic Attacks, Paranoia, Suicidal Ideation, Visual Hallucinations, Tactile Hallucinations, Other - Endocrine Endocrine: absent: As Per HPI, Change in Body Appearance, Change in Libido, Cold Intolorance, Deepening of Voice, Excessive Sweating, Fatigue, Flushing, Heat Intolorance, Increase in Ring/Shoe/Hat Size, Palpitations, Polydipsia, Polyphagia, Polyuria, Other - Hematologic/Lymphatic Hematologic: As Per HPI Past Patient History - Infectious Disease Hx of Infectious Diseases: None - Tetanus Immunizations Tetanus Immunization: Unknown - Past Social History Smoking Status: Former Smoker - CARDIAC Hx Cardiac Disorders: Yes (cad) Hx Congestive Heart Failure: Yes Hx Hypertension: Yes Hx Pacemaker: Yes Hx Peripheral Vascular Disease: Yes - PULMONARY Hx Respiratory Disorders: No - NEUROLOGICAL Hx Neurological Disorder: Yes HX Cerebrovascular Accident: Yes Hx Dizziness: Yes - HEENT Hx HEENT Problems: Yes (Wears eyeglasses) Hx Cataracts: Yes (right eye no sx) - RENAL Hx Chronic Kidney Disease: Yes Hx Kidney Stones: Yes - ENDOCRINE/METABOLIC Hx Endocrine Disorders: No - HEMATOLOGICAL/ONCOLOGICAL Hx Blood Disorders: Yes (blood transfusion) Hx Cancer: Yes (colon) - INTEGUMENTARY Hx Dermatological Problems: No - MUSCULOSKELETAL/RHEUMATOLOGICAL Hx Musculoskeletal Disorders: Yes Hx Falls: Yes - GASTROINTESTINAL Hx Gastrointestinal Disorders: Yes - GENITOURINARY/GYNECOLOGICAL Hx Genitourinary Disorders: No - PSYCHIATRIC Hx Psychophysiologic Disorder: No Hx Substance Use: No - SURGICAL HISTORY Hx Appendectomy: Yes Hx Cholecystectomy: Yes - ANESTHESIA Hx Anesthesia: Yes Meds Allergies/Adverse Reactions: Allergies Allergy/AdvReac Type Severity Reaction Status Date / Time levofloxacin [From Levaquin] Allergy RASH Verified 04/10/17 18:03 methimazole Allergy RASH Verified 04/10/17 18:03 moxifloxacin Allergy RASH Verified 04/10/17 18:03 Penicillins Allergy RASH Verified 04/10/17 18:03 vancomycin Allergy DIZZINESS Verified 04/10/17 18:03 sulfa Allergy DIZZINESS Uncoded 04/10/17 18:03 Physical Exam - Constitutional Appears: Well, Non-toxic - Head Exam Head Exam: ATRAUMATIC, NORMAL INSPECTION, NORMOCEPHALIC - Eye Exam Eye Exam: absent: Conjunctival injection, EOMI, Normal appearance, Nystagmus, Periorbital swelling, Periorbital tenderness, PERRL, Scleral icterus - ENT Exam ENT Exam: Mucous Membranes Moist, Normal Exam - Neck Exam Neck exam: Positive for: Normal Inspection - Respiratory Exam Respiratory Exam: Clear to Auscultation Bilateral, NORMAL BREATHING PATTERN - Cardiovascular Exam Cardiovascular Exam: REGULAR RHYTHM, +S1, +S2 - GI/Abdominal Exam GI & Abdominal Exam: Diminished Bowel Sounds, Tenderness - Extremities Exam Extremities exam: Positive for: normal inspection, pedal pulses present - Back Exam Back exam: NORMAL INSPECTION - Neurological Exam Neurological exam: Alert, Normal Gait, Oriented x3, Reflexes Normal - Psychiatric Exam Psychiatric exam: Normal Affect, Normal Mood - Skin Skin Exam: Dry, Intact, Normal Color, Warm Results - Vital Signs Recent Vital Signs: Last Vital Signs Temp 98.2 F 04/11/17 17:31 Pulse 64 04/11/17 18:00 Resp 20 04/11/17 17:31 BP 146/69 04/11/17 17:31 Pulse Ox 97 04/11/17 05:21 - Labs Result Diagrams: 04/11/17 09:30 04/11/17 09:30 Labs: Laboratory Results - last 24 hr 04/10/17 04/11/17 04/11/17 22:00 09:30 09:30 WBC 19.6 H D RBC 4.00 Hgb 11.0 L Hct 34.6 L MCV 86.5 MCH 27.5 MCHC 31.8 RDW 14.1 Plt Count 147 MPV 10.7 Gran % 81.1 H Lymph % (Auto) 10.7 L [place] % (Auto) 8.1 H Eos % (Auto) 0.0 L Baso % (Auto) 0.1 Gran # 15.90 H Lymph # 2.1 [place] # 1.6 H Eos # 0.0 Baso # 0.01 pO2 96 H VBG pH 7.36 VBG pCO2 42.0 VBG HCO3 23.7 VBG Total CO2 25.0 VBG O2 Sat (Calc) 99.8 H VBG Base Excess -1.8 L VBG Potassium 3.5 L Sodium 134.0 137 Chloride 104.0 104 Glucose 104 Lactate 1.3 FiO2 21.0 Potassium 4.2 Carbon Dioxide 23 Anion Gap 14 BUN 14 Creatinine 0.9 Est GFR ( Amer) > 60 Est GFR (Non-Af Amer) > 60 Random Glucose 96 Calcium 8.5 Total Bilirubin 4.8 H AST 127 H ALT 125 H Alkaline Phosphatase 121 Total Protein 6.2 Albumin 3.3 Globulin 2.9 Albumin/Globulin Ratio 1.1 Amylase 216 H Lipase 468 H Venous Blood Potassium 3.5 L Assessment & Plan - Assessment and Plan (Free Text) Plan: 1. Acute pancreatitis 2. Dilated intra, extra hepatic biliary ducts. 3. Sepsis 4. UTI 5. Hyperbilirubinemia 6. Leukocytosis 7. Anemia Plan : NPO except meds. IVF normal saline 100 cc/hr. IV antibiotics -zosyn . ID consult Dr. Flower. GI consult Dr. Cancino. Monitior pancreatic enzymes. CT abdomen , US abdomen to r/o CBD stone. anemia, leukocytosis- will monitor blood counts. Discussed with the patient. Discussed with Dr. Rosa, DR. Cancino. prognosis- guarded
--- NOTE | 2017-04-11 20:11 | CON ---
DATE: 04/11/2017 LOCATION: Patient is seen in room 261, bed 1 today. CHIEF COMPLAINT: Fever and abdominal pain x1 day duration. HISTORY OF PRESENT ILLNESS: This is an 82-year-old female with history of hypertension, coronary artery disease, congestive heart failure, peripheral vascular disease, and cataract, who has multiple allergies including Levaquin, moxifloxacin, penicillin, vancomycin, and sulfa. She is not sure what type of allergy, who has also had pacemaker, cholecystectomy, appendectomy. She is admitted now with cholangitis and pancreatitis. Infectious diseases consultation requested for antibiotic choice. PAST MEDICAL HISTORY: As stated. PAST SURGICAL HISTORY: As stated. ALLERGIES: As stated, Levaquin, methimazole, moxifloxacin, penicillin, vancomycin, sulfa. MEDICATIONS AT HOME: Includes patient to be on Lopressor, Lasix and aspirin. REVIEW OF SYSTEMS: Reveals patient did have fevers, chills, and abdominal pain. Abdominal pain is more on the right side. PHYSICAL EXAMINATION GENERAL: She is in bed. No acute distress. She answered questions appropriately. VITAL SIGNS: Temperature of 97, T-max is 103, pulse of 92, blood pressure is 120/50, respiratory rate of 20. HEENT: Unremarkable. NECK: Supple. LUNGS: Decreased breath sounds. HEART: Normal S1 and S2. ABDOMEN: Mild tenderness in the right upper quadrant. No rebound or guarding. No masses. LABORATORY EXAMINATION: Reveals a white count of 19,600, hemoglobin of 11, platelets of 147. Coagulation is noted. LFTs are elevated. Alkaline phosphatase is elevated, and BUN is 15, creatinine of 0.9. Lipase is 11,000. Urinalysis reveals 10 to 15 WBCs and many bacteria. Microbiology is pending. Patient had a CAT scan of the abdomen and pelvis, which is pending results. Patient did have an ultrasound, which reveals gallbladder is absent and dilated ducts in both lobes of the liver. Common duct is dilated, duct measures 2.5 cm in the garcia hepatis. Level of the pancreatic duct is also dilated. Multiple stones in the common duct. ASSESSMENT AND PLAN: This is an 82-year-old female with hypertension, coronary artery disease, congestive heart failure, peripheral vascular disease, cataract, with sepsis, with choledocholithiasis with pancreatitis with multiple allergies. We treat patient with Zyvox, Azactam and Flagyl pending blood and urine culture. Surgical and GI input, and we will follow closely with you. Sebastian Rosas MD
[2017-04-11] MEDS ORDERED: Phytonadione 10 mg/ml Inj (Adult) SC ONE (20:34)
--- NOTE | 2017-04-11 21:13 | CARD ---
APPROVED REPORT EKG Measurement Heart [id number] [id number] <Conclusion> Electronic ventricular pacemaker Fusion beats
[2017-04-11] MEDS: HYDROmorphone 0.5 mg/0.5 ml ISec IVP PRN (21:53)
--- NOTE | 2017-04-12 00:36 | CP.PCM.CON ---
History of Present Illness - History of Present Illness History of Present Illness: this 82-year-old patient with a past medical history of coronary artery disease CHF. Hypertension present presented to the emergency room complaining of uupper abdominal pain. Patient claims that she ate some Kinyarwanda food on and the symptoms began on Wednesday. Complains of chills and fever. No diarrhea.. No similar previous episode OTHER PAST MEDICAL HISTORY as above SURGICAL HISTORY status post pacemaker, cholecystectomy, appendectomy, hernia repair, colon resection FAMILY HISTORY .noncontributory. SOCIAL HISTORY denies alcohol and smoking REVIEW OF SYSTEMS positive as above other systems reviewed Past Patient History - Infectious Disease Hx of Infectious Diseases: None - Tetanus Immunizations Tetanus Immunization: Unknown - Past Social History Smoking Status: Former Smoker - CARDIAC Hx Cardiac Disorders: Yes (cad) Hx Congestive Heart Failure: Yes Hx Hypertension: Yes Hx Pacemaker: Yes Hx Peripheral Vascular Disease: Yes - PULMONARY Hx Respiratory Disorders: No - NEUROLOGICAL Hx Neurological Disorder: Yes HX Cerebrovascular Accident: Yes Hx Dizziness: Yes - HEENT Hx HEENT Problems: Yes (Wears eyeglasses) Hx Cataracts: Yes (right eye no sx) - RENAL Hx Chronic Kidney Disease: Yes Hx Kidney Stones: Yes - ENDOCRINE/METABOLIC Hx Endocrine Disorders: No - HEMATOLOGICAL/ONCOLOGICAL Hx Blood Disorders: Yes (blood transfusion) Hx Cancer: Yes (colon) - INTEGUMENTARY Hx Dermatological Problems: No - MUSCULOSKELETAL/RHEUMATOLOGICAL Hx Musculoskeletal Disorders: Yes Hx Falls: Yes - GASTROINTESTINAL Hx Gastrointestinal Disorders: Yes - GENITOURINARY/GYNECOLOGICAL Hx Genitourinary Disorders: No - PSYCHIATRIC Hx Psychophysiologic Disorder: No Hx Substance Use: No - SURGICAL HISTORY Hx Appendectomy: Yes Hx Cholecystectomy: Yes - ANESTHESIA Hx Anesthesia: Yes Meds Allergies/Adverse Reactions: Allergies Allergy/AdvReac Type Severity Reaction Status Date / Time levofloxacin [From Levaquin] Allergy RASH Verified 04/10/17 18:03 methimazole Allergy RASH Verified 04/10/17 18:03 moxifloxacin Allergy RASH Verified 04/10/17 18:03 Penicillins Allergy RASH Verified 04/10/17 18:03 vancomycin Allergy DIZZINESS Verified 04/10/17 18:03 sulfa Allergy DIZZINESS Uncoded 04/10/17 18:03 - Medications Medications: Current Medications Hydromorphone HCl (Dilaudid) 0.5 mg IVP Q4H PRN PRN Reason: Pain, moderate (4-7) Last Admin: 04/11/17 21:53 Dose: 0.5 mg Aztreonam (Azactam 1 Gm) 100 mls @ 100 mls/hr IVPB Q8 [facility]ACKY PRN Reason: Protocol Stop: 04/19/17 22:31 Last Admin: 04/11/17 21:53 Dose: 100 mls/hr Metronidazole (Flagyl) 500 mg in 100 mls @ 100 mls/hr IVPB Q8 JACKY PRN Reason: Protocol Stop: 04/19/17 22:32 Last Admin: 04/11/17 21:54 Dose: 100 mls/hr Linezolid (Zyvox 600mg/300ml D5w) 600 mg in 300 mls @ 200 mls/hr IVPB Q12 JACKY PRN Reason: Protocol Stop: 04/19/17 22:33 Last Admin: 04/11/17 21:54 Dose: 200 mls/hr Lactated Ringer's (Lactated Ringer's) 1,000 mls @ 100 mls/hr IV .Q10H [facility] Last Admin: 04/11/17 18:50 Dose: 100 mls/hr Metoprolol Tartrate (Lopressor) 25 mg PO DAILY [facility] Last Admin: 04/11/17 11:53 Dose: 25 mg Ondansetron HCl (Zofran Inj) 8 mg IM Q6 PRN PRN Reason: Nausea/Vomiting Physical Exam - Constitutional Appears: No Acute Distress - Head Exam Head Exam: ATRAUMATIC, NORMOCEPHALIC - Eye Exam Eye Exam: EOMI, Nystagmus, PERRL. absent: Scleral icterus - ENT Exam ENT Exam: Mucous Membranes Moist - Respiratory Exam Respiratory Exam: NORMAL BREATHING PATTERN. absent: Accessory Muscle Use, Rales , Rhonchi - Cardiovascular Exam Cardiovascular Exam: REGULAR RHYTHM, +S1, +S2. absent: JVD - GI/Abdominal Exam GI & Abdominal Exam: Normal Bowel Sounds, Soft, Tenderness Additional comments: mild tenderness in the epigastric and right upper quadrant area no rebound or guarding - Extremities Exam Extremities exam: Positive for: normal inspection. Negative for: calf tenderness - Neurological Exam Neurological exam: Alert Results - Vital Signs Recent Vital Signs: Last Vital Signs Temp 98.2 F 04/11/17 17:31 Pulse 64 04/11/17 18:00 Resp 20 04/11/17 17:31 BP 146/69 04/11/17 17:31 Pulse Ox 97 04/11/17 05:21 - Labs Result Diagrams: 04/11/17 09:30 04/11/17 09:30 Labs: Laboratory Results - last 24 hr 04/11/17 04/11/17 09:30 09:30 WBC 19.6 H D RBC 4.00 Hgb 11.0 L Hct 34.6 L MCV 86.5 MCH 27.5 MCHC 31.8 RDW 14.1 Plt Count 147 MPV 10.7 Gran % 81.1 H Lymph % (Auto) 10.7 L Edgar % (Auto) 8.1 H Eos % (Auto) 0.0 L Baso % (Auto) 0.1 Gran # 15.90 H Lymph # 2.1 Edgar # 1.6 H Eos # 0.0 Baso # 0.01 Sodium 137 Potassium 4.2 Chloride 104 Carbon Dioxide 23 Anion Gap 14 BUN 14 Creatinine 0.9 Est GFR ( Amer) > 60 Est GFR (Non-Af Amer) > 60 Random Glucose 96 Calcium 8.5 Total Bilirubin 4.8 H AST 127 H ALT 125 H Alkaline Phosphatase 121 Total Protein 6.2 Albumin 3.3 Globulin 2.9 Albumin/Globulin Ratio 1.1 Amylase 216 H Lipase 468 H - Imaging and Cardiology CT scan - abdomen Status: Image reviewed by me, Pending Assessment & Plan - Assessment and Plan (Free Text) Assessment: this 82-year-old patient was in the emergency room complaining of epigastric right upper quadrant biliary area nausea or vomiting. Ultrasound showed a dilated common bile duct with a possible stone. Patient history of status post cholecystectomy, Patient has significantly elevated LFTs, dilated common bile duct with possible stone Elevated amylase and lipase level pancreatitis of a gallstone-induced this patient probably has cholangitis gallstone pancreatitis other comorbidities include a coronary artery disease, status post pacemaker placement, hypertension RECOMMENDATIONS 1. Follow with LFTs 2. Continue the antibiotics 3. Follow-up cultures 4. will consider ERCP Risk category ASA 3 MP score 2 - Date & Time Date: 04/11/17 Time: 20:10
[2017-04-12] MEDS: Aztreonam 1 Gm in NS 100mL 100 ML IVPB SCH ×3 (05:09→21:53)
[2017-04-12] MEDS: metroNIDAZOLE IV 500 mg/100 ml 500 MG/100 ML BAG IVPB SCH ×3 (05:10→21:53)
[2017-04-12] MEDS: Lactated Ringer's 1,000 ML IV SCH ×2 (05:10→10:23)
[2017-04-12 06:04] LABS: BASO # 0.01 K/mm3 (0.0-2.0); BASO % 0.1 % (0.0-3.0); EOS # 0.1 (0.0-0.7); EOS % 0.9 % (1.5-5.0); GRAN # 11.02 (1.4-6.5); GRAN % 77.1 % (50.0-68.0); HEMATOCRIT 33.5 % (36.0-48.0); LYMPH # 1.7 (1.2-3.4); MEAN CELL VOLUME 86.1 fl (80.0-105.0); MEAN CORPUSCULAR HEMOGLOBIN 27.8 pg (25.0-35.0); MEAN CORPUSCULAR HGB CONC 32.2 g/dl (31.0-37.0); MEAN PLATELET VOLUME 11.3 fl (7.0-11.0); MONO # 1.4 (0.1-0.6); MONO % 9.9 % (1.0-6.0); RED CELL DISTRIBUTION WIDTH 14.3 % (11.5-14.5); WHITE BLOOD COUNT 14.3 10^3/ul (4.5-11.0)
[2017-04-12 06:10] LABS: INR 1.18 (0.93-1.08); PARTIAL THROMBOPLASTIN TIME 28.5 Seconds (23.7-30.8)
[2017-04-12 06:58] LABS: ALKALINE PHOSPHATASE 132 U/L (38-133); ALT/SGPT 90 U/L (7-56); AST/SGOT 69 U/L (15-39); BILIRUBIN,TOTAL 3.4 mg/dL (0.2-1.3); BLOOD UREA NITROGEN 14 mg/dL (7-21); CALCIUM 8.7 mg/dL (8.4-10.5); CARBON DIOXIDE 22 mmol/L (21-33); CHLORIDE 103 mmol/L (95-110); GFR AFRICAN-AMERICAN > 60; GLUCOSE,RANDOM 85 mg/dL (70-110); MAGNESIUM 1.2 mg/dL (1.7-2.2); POTASSIUM 4.1 mmol/L (3.6-5.0); SODIUM 133 mmol/L (132-148); TOTAL PROTEIN 6.1 g/dL (5.8-8.3)
[2017-04-12] MEDS ORDERED: Indomethacin 50 MG Suppository PR ONE ×2 (07:58→17:25)
[2017-04-12] MEDS ORDERED: Iohexol 240 (50 ml) ONE (07:59)
--- NOTE | 2017-04-12 07:59 | CP.PCM.PN ---
Subjective - Date & Time of Evaluation Date of Evaluation: 04/12/17 Time of Evaluation: 07:00 - Subjective Subjective: General Surgery Dr. Cardenas Pt S&E @bedside. NAEO. continued RUQ pain. denies F/C, N/V. tolerating sips & chips. Objective - Vital Signs/Intake and Output Vital Signs (last 24 hours): Temp Pulse Resp BP Pulse Ox 98.3 F 88 20 159/78 H 96 04/12/17 06:00 04/12/17 06:00 04/12/17 06:00 04/12/17 06:00 04/12/17 06:00 Intake and Output: 04/12/17 04/12/17 06:59 18:59 Output Total 600 Balance -600 - Medications Medications: Current Medications Hydromorphone HCl (Dilaudid) 0.5 mg IVP Q4H PRN PRN Reason: Pain, moderate (4-7) Last Admin: 04/11/17 21:53 Dose: 0.5 mg Aztreonam (Azactam 1 Gm) 100 mls @ 100 mls/hr IVPB Q8 JACKY PRN Reason: Protocol Stop: 04/19/17 22:31 Last Admin: 04/12/17 05:09 Dose: 100 mls/hr Metronidazole (Flagyl) 500 mg in 100 mls @ 100 mls/hr IVPB Q8 JACKY PRN Reason: Protocol Stop: 04/19/17 22:32 Last Admin: 04/12/17 05:10 Dose: 100 mls/hr Linezolid (Zyvox 600mg/300ml D5w) 600 mg in 300 mls @ 200 mls/hr IVPB Q12 [facility]ACK[facility] PRN Reason: Protocol Stop: 04/19/17 22:33 Last Admin: 04/11/17 21:54 Dose: 200 mls/hr Lactated Ringer's (Lactated Ringer's) 1,000 mls @ 100 mls/hr IV .Q10H [facility] Last Admin: 04/12/17 05:10 Dose: Not Given Metoprolol Tartrate (Lopressor) 25 mg PO DAILY [facility] Last Admin: 04/11/17 11:53 Dose: 25 mg Ondansetron HCl (Zofran Inj) 8 mg IM Q6 PRN PRN Reason: Nausea/Vomiting - Labs Labs: 04/12/17 05:15 04/12/17 05:15 PT 12.7 Seconds (9.9-11.8) H 04/12/17 05:15 INR 1.18 (0.93-1.08) H 04/12/17 05:15 APTT 28.5 Seconds (23.7-30.8) 04/12/17 05:15 - Constitutional Appears: Non-toxic, No Acute Distress - Head Exam Head Exam: NORMAL INSPECTION - Eye Exam Eye Exam: Normal appearance - ENT Exam ENT Exam: Mucous Membranes Moist - Respiratory Exam Respiratory Exam: NORMAL BREATHING PATTERN. absent: Accessory Muscle Use, Respiratory Distress - Cardiovascular Exam Cardiovascular Exam: absent: Bradycardia, Tachycardia - GI/Abdominal Exam GI & Abdominal Exam: Soft, Tenderness (minimal RUQ TTP). absent: Distended, Rebound - Neurological Exam Neurological Exam: Alert, Awake, Oriented x3 - Psychiatric Exam Psychiatric exam: Normal Affect, Normal Mood - Skin Skin Exam: Dry, Intact, Normal Color, Warm Assessment and Plan - Assessment and Plan (Free Text) Assessment: 82 y/o F w/ ascending cholangitis s/p open cholecystectomy - ERCP today - pain management - cont IV Abx - f/u GI recommendations Pt discussed w/ Dr. Ronald Gifford DO PGY2
[2017-04-12] MEDS ORDERED: Magnesium Sulfate 2 GM in Sodium Chloride 0.9% 100 ML IVPB STA (08:46)
--- NOTE | 2017-04-12 10:50 | CP.PCM.PCO ---
Physician Communication Note - Physician Communication Note Physician Communication Note: For ERCP-Cardiology clearing patient
[2017-04-12 11:00] LABS: IRON 15 ug/dL (45-180)
[2017-04-12] MEDS: Linezolid 600 mg in D5W 300 ml 600 MG/300 ML BAG IVPB SCH ×2 (11:24→21:54)
--- NOTE | 2017-04-12 15:27 | CP.PCM.PN ---
Subjective - Date & Time of Evaluation Date of Evaluation: 04/12/17 Time of Evaluation: 15:26 - Subjective Subjective: cardiology clearance Objective - Vital Signs/Intake and Output Vital Signs (last 24 hours): Temp Pulse Resp BP Pulse Ox 98.3 F 82 20 153/81 H 96 04/12/17 11:51 04/12/17 14:00 04/12/17 11:51 04/12/17 11:51 04/12/17 06:00 Intake and Output: 04/12/17 04/12/17 06:59 18:59 Output Total 600 Balance -600 - Medications Medications: Current Medications Hydromorphone HCl (Dilaudid) 0.5 mg IVP Q4H PRN PRN Reason: Pain, moderate (4-7) Last Admin: 04/11/17 21:53 Dose: 0.5 mg Aztreonam (Azactam 1 Gm) 100 mls @ 100 mls/hr IVPB Q8 [facility]ACKY PRN Reason: Protocol Stop: 04/19/17 22:31 Last Admin: 04/12/17 14:30 Dose: 100 mls/hr Metronidazole (Flagyl) 500 mg in 100 mls @ 100 mls/hr IVPB Q8 [facility]ACKY PRN Reason: Protocol Stop: 04/19/17 22:32 Last Admin: 04/12/17 15:16 Dose: 100 mls/hr Linezolid (Zyvox 600mg/300ml D5w) 600 mg in 300 mls @ 200 mls/hr IVPB Q12 [facility]ACK[facility] PRN Reason: Protocol Stop: 04/19/17 22:33 Last Admin: 04/12/17 11:24 Dose: 200 mls/hr Lactated Ringer's (Lactated Ringer's) 1,000 mls @ 100 mls/hr IV .Q10H [facility] Last Admin: 04/12/17 10:23 Dose: 100 mls/hr Iron Sucrose 100 mg/ Sodium (Chloride) 105 mls @ 210 mls/hr IVPB DAILY [facility] Stop: 04/15/17 10:29 Metoprolol Tartrate (Lopressor) 25 mg PO DAILY [facility] Last Admin: 04/12/17 11:23 Dose: 25 mg Ondansetron HCl (Zofran Inj) 8 mg IM Q6 PRN PRN Reason: Nausea/Vomiting - Labs Labs: 04/12/17 05:15 04/12/17 05:15 PT 12.7 Seconds (9.9-11.8) H 04/12/17 05:15 INR 1.18 (0.93-1.08) H 04/12/17 05:15 APTT 28.5 Seconds (23.7-30.8) 04/12/17 05:15 Assessment and Plan - Assessment and Plan (Free Text) Assessment: patient cleared for ERCP/EUS as per Dr. Kirk (cardiology) moderate risk.
[2017-04-12] MEDS ORDERED: Rocuronium 10 mg/ml (5 ml) ONE (15:50)
[2017-04-12] MEDS ORDERED: Phenylephrine 10 mg/ml Inj ONE (15:50)
[2017-04-12] MEDS ORDERED: Etomidate 20 mg/10ml Inj IV ONE (16:33)
[2017-04-12] MEDS ORDERED: Propofol 10 mg/ml Inj (20 ML) ONE (16:33)
[2017-04-12 17:34] LABS: FOLATE 15.4 ng/mL
[2017-04-12] MEDS ORDERED: Sodium Chloride 0.9% 1,000 ML IV SCH (18:15)
--- NOTE | 2017-04-12 23:05 | PN ---
DATE OF SERVICE: 04/12/2017SUBJECTIVE: The patient is in bed, in no acute distress. PHYSICAL EXAMINATION: VITAL SIGNS: Temperature is 98, blood pressure is 150/80, respiratory rate is 28, heart rate of 94. HEENT: Unremarkable. NECK: Supple. LUNGS: Decreased breath sounds. HEART: Normal S1 and S2. ABDOMEN: Soft, nontender. LABORATORY DATA: Reveals a white count 14,300, hemoglobin 10, platelets of 149. Chemistry reveals a BUN of 14, creatinine 0.9. Lipase is noted to be decreasing and LFTs are improving. Urinalysis is noted, 10 to 15 wbc's. Microbiology reveals a gram-negative ghislaine in the blood and gram-positive cocci in the blood and change identified is probable strep on both bottles. There is also gram-negative ghislaine in the urine. REVIEW OF ORDERS: Review of patient's Flagyl, Zyvox, and aztreonam. ASSESSMENT AND PLAN: This an 82-year-old female with hypertension, coronary artery disease, congestive heart failure, peripheral vascular disease, cataract and sepsis with choledocholithiasis and pancreatitis and multiple allergy, now with sepsis with gram-negative ghislaine, bacteriemia and gram-positive cocci bacteriemia, probable strep. It is a gram negative ghislaine in the urine, on Zyvox, Azactam, and Flagyl. Patient with multiple allergies including LEVAQUIN, MOXIFLOXACIN, PENICILLIN, VANCOMYCIN AND SULFA. We will check on the identification and sensitivity. Dr. Oneal's communication report is reviewed. Dr. Alvarez's gastroenterology consultation is reviewed. Ascending cholangitis in a patient with a history of cholecystectomy. We will follow closely with you. AMITA POSADA MD
--- NOTE | 2017-04-12 23:16 | CP.PCM.PN ---
Subjective - Date & Time of Evaluation Date of Evaluation: 04/12/17 Time of Evaluation: 10:00 - Subjective Subjective: Comfortable in bed. No nausea, vomting. Mild epigastric pain. ERCP done today showed gastric ulcers, esophagitis. CBD stones. pancreatic enzymes declined. Objective - Vital Signs/Intake and Output Vital Signs (last 24 hours): Temp Pulse Resp BP Pulse Ox 98.4 F 89 17 181/88 H 98 04/12/17 18:50 04/12/17 18:50 04/12/17 18:50 04/12/17 18:50 04/12/17 18:50 Intake and Output: 04/12/17 04/13/17 18:59 06:59 Intake Total 75 Balance 75 - Medications Medications: Current Medications Hydromorphone HCl (Dilaudid) 0.5 mg IVP Q4H PRN PRN Reason: Pain, moderate (4-7) Last Admin: 04/11/17 21:53 Dose: 0.5 mg Aztreonam (Azactam 1 Gm) 100 mls @ 100 mls/hr IVPB Q8 JACKY PRN Reason: Protocol Stop: 04/19/17 22:31 Last Admin: 04/12/17 21:53 Dose: 100 mls/hr Metronidazole (Flagyl) 500 mg in 100 mls @ 100 mls/hr IVPB Q8 JACKY PRN Reason: Protocol Stop: 04/19/17 22:32 Last Admin: 04/12/17 21:53 Dose: 100 mls/hr Linezolid (Zyvox 600mg/300ml D5w) 600 mg in 300 mls @ 200 mls/hr IVPB Q12 JACKY PRN Reason: Protocol Stop: 04/19/17 22:33 Last Admin: 04/12/17 21:54 Dose: 200 mls/hr Lactated Ringer's (Lactated Ringer's) 1,000 mls @ 100 mls/hr IV .Q10H [facility] Last Admin: 04/12/17 10:23 Dose: 100 mls/hr Iron Sucrose 100 mg/ Sodium (Chloride) 105 mls @ 210 mls/hr IVPB DAILY [facility] Stop: 04/15/17 10:29 Sodium Chloride (Sodium Chloride 0.9%) 1,000 mls @ 100 mls/hr IV .Q10H [facility] Last Admin: 04/12/17 21:54 Dose: 100 mls/hr Metoprolol Tartrate (Lopressor) 25 mg PO DAILY [facility] Last Admin: 04/12/17 11:23 Dose: 25 mg Ondansetron HCl (Zofran Inj) 8 mg IM Q6 PRN PRN Reason: Nausea/Vomiting - Labs Labs: 04/12/17 05:15 04/12/17 05:15 PT 12.7 Seconds (9.9-11.8) H 04/12/17 05:15 INR 1.18 (0.93-1.08) H 04/12/17 05:15 APTT 28.5 Seconds (23.7-30.8) 04/12/17 05:15 - Constitutional Appears: Non-toxic - Head Exam Head Exam: ATRAUMATIC, NORMAL INSPECTION, NORMOCEPHALIC - ENT Exam ENT Exam: absent: Mucous Membranes Dry, Mucous Membranes Moist, Normal Exam, Normal External Ear Exam, Normal Oropharynx, TM's Normal Bilaterally - Neck Exam Neck Exam: absent: Full ROM, Lymphadenopathy, Meningismus, Normal Inspection, Tenderness, Thyromegaly - Respiratory Exam Respiratory Exam: Clear to Ausculation Bilateral, NORMAL BREATHING PATTERN - Cardiovascular Exam Cardiovascular Exam: REGULAR RHYTHM, +S1, +S2 - GI/Abdominal Exam GI & Abdominal Exam: Soft, Diminished Bowel Sounds - Back Exam Back Exam: NORMAL INSPECTION - Neurological Exam Neurological Exam: Alert, Oriented x3 - Skin Skin Exam: Normal Color, Warm Assessment and Plan - Assessment and Plan (Free Text) Assessment: Assessment and Plan (Free Text) Plan: 1. Acute pancreatitis 2. Dilated intra, extra hepatic biliary ducts. CBD stones 3. gram negative Sepsis 4. UTI 5. Hyperbilirubinemia 6. Leukocytosis 7. severe iron deficiency Anemia Plan : pancreatitis improving. IV antibiotics- aztreonam, zyvox. IVF- NS 100 cc/hr. iron sucrose 200 mg IV clear liquids form 04/13. pain control with morphine. bed side PT.
--- NOTE | 2017-04-13 00:54 | CON ---
DATE: 04/12/2017 The patient is in room 261, bed 1. REASON FOR CONSULTATION: Cardiac risk stratification, the patient needs ERCP. The patient with nonobstructive coronary artery disease, had slight LV dysfunction with ejection fraction of 45%. HISTORY OF PRESENT ILLNESS: The patient is an 82-year-old female, admitted with abdominal pain, nausea, vomiting and fever 3 days duration. The patient denies any chest pain, shortness of breath or palpitation. The patient is lying flat in bed without any cardiac symptoms. The patient had twice cardiac catheterization, which showed nonobstructive coronary artery disease. PAST MEDICAL HISTORY: Positive for cardiac catheterization twice, nonobstructive coronary artery disease, cath was done in 2004 and second one was 2013. The patient had pacemaker inserted 03/2016. History of paroxysmal atrial fibrillation, psychogenic polydipsia, hypothyroidism, alcohol abuse in the past. PREVIOUS CARDIAC WORKUP: The patient's recent cardiac catheterization was in 2013 that showed normal ejection fraction of 55%, normal coronaries. The patient had prior cardiac catheterization 10/02/2004, which also shows essentially normal coronaries. The patient had pacemaker insertion for sick sinus syndrome. The patient had echo done in 2015 that showed ejection fraction of 55%. Trace aortic regurgitation, trace to mild mitral regurgitation, mild tricuspid regurgitation, RV systolic pressure of 37 mmHg. History of permanent pacemaker insertion. PERSONAL HISTORY: History of alcohol abuse in the past. He says he has stopped drinking 1 year ago. Also, the patient has a history of psychogenic polydipsia. Denies smoking. Prior to stopping, the patient used to use 6-8 case of beer a day. ALLERGIES: THE PATIENT SAYS SHE IS ALLERGIC TO LEVAQUIN, PENICILLIN, VANCOMYCIN, AND SULFA. HOME MEDICATIONS: Lopressor 25 mg p.o. daily, Lasix 40 mg p.o. p.r.n. when she has some swelling of legs, aspirin 81 p.o. daily. PHYSICAL EXAMINATION VITAL SIGNS: Blood pressure 149/69, respirations 20, pulse 83, temperature 97.5. HEENT: Normocephalic. Eyes: Pupil normal. Conjunctiva slightly pale. NECK: JVP low. Carotid equal. Thorax, AP diameter normal. LUNGS: Clear. CARDIOVASCULAR: S1 and S2. Soft systolic murmur. No rub. ABDOMEN: Soft. No tenderness. No organomegaly. Bowel sounds are normal. EXTREMITIES: No clubbing. No cyanosis. LABORATORY DATA: WBC 14.3, hemoglobin 10.8, hematocrit 33.5, platelets 149. Sodium 133, potassium 4.1, BUN 14, creatinine 0.9, magnesium is low 1.2. Total bilirubin 3.4, it was 6.7 before. AST 69, it was 221, ALT 90, it was 170, alkaline phosphatase is 132 which is normal, on 04/10/2017 alkaline phosphatase was 176. Total protein and albumin normal. Prothrombin time 12.7, INR 1.18, APTT 28.5. Chest x-ray with hyperinflated lungs consistent with underlying chronic changes, COPD, small calcified granuloma on the right lateral lobe, lung field unchanged. EKG showed pacemaker rhythm. Abdomen and pelvis CAT scan showed prominence of the pancreatic head status post cholecystectomy, dilatation of the common bile duct, small bilateral plural effusion. DIAGNOSES: Abdominal pain with dilated common duct, history of cholecystectomy, rule out common duct stone with obstruction, chronic obstructive pulmonary disease, history of paroxysmal atrial fibrillation. She had a colon surgery, hypertension, ex-smoker and alcohol abuse before, slight anemia, hemoglobin 10.8, hematocrit 33.5. Liver enzyme elevated, hypomagnesemia. PLAN: Clinically if the patient's cardiac status is stable, can go for ERCP at moderate risk. We will give IV magnesium sulphate, because magnesium is 1.2. The patient already on aztreonam 1 g q. 8 hour, metronidazole 500 mg IV q. 8 hours, Lopressor 25 mg p.o. daily, magnesium sulfate 2 g IV. The patient already received vitamin K injection. Prothrombin time 12.7, INR 1.18, APTT 28.5. We will continue present therapy and we will follow. Javier Kirk MD
[2017-04-13] MEDS: Aztreonam 1 Gm in NS 100mL 100 ML IVPB SCH ×3 (06:05→21:17)
[2017-04-13] MEDS: metroNIDAZOLE IV 500 mg/100 ml 500 MG/100 ML BAG IVPB SCH ×3 (06:06→21:22)
[2017-04-13 06:31] LABS: BASO # 0.01 K/mm3 (0.0-2.0); BASO % 0.1 % (0.0-3.0); EOS # 0.2 (0.0-0.7); EOS % 2.1 % (1.5-5.0); GRAN # 7.71 (1.4-6.5); GRAN % 69.2 % (50.0-68.0); HEMATOCRIT 32.9 % (36.0-48.0); LYMPH % 17.5 % (22.0-35.0); MEAN CELL VOLUME 85.9 fl (80.0-105.0); MEAN CORPUSCULAR HEMOGLOBIN 27.7 pg (25.0-35.0); MEAN CORPUSCULAR HGB CONC 32.2 g/dl (31.0-37.0); MEAN PLATELET VOLUME 11.4 fl (7.0-11.0); MONO # 1.2 (0.1-0.6); MONO % 11.1 % (1.0-6.0); RED CELL DISTRIBUTION WIDTH 14.2 % (11.5-14.5); WHITE BLOOD COUNT 11.1 10^3/ul (4.5-11.0)
[2017-04-13 06:33] LABS: ALB/GLOB RATIO 0.9 (1.1-1.8); ALKALINE PHOSPHATASE 135 U/L (38-133); ALT/SGPT 64 U/L (7-56); AMYLASE 60 U/L (35-125); AST/SGOT 44 U/L (15-39); BILIRUBIN,TOTAL 2.3 mg/dL (0.2-1.3); BLOOD UREA NITROGEN 12 mg/dL (7-21); CALCIUM 8.6 mg/dL (8.4-10.5); CARBON DIOXIDE 26 mmol/L (21-33); CHLORIDE 104 mmol/L (95-110); GFR AFRICAN-AMERICAN > 60; GLUCOSE,RANDOM 88 mg/dL (70-110); MAGNESIUM 1.5 mg/dL (1.7-2.2); POTASSIUM 3.6 mmol/L (3.6-5.0); SODIUM 136 mmol/L (132-148); TOTAL PROTEIN 5.6 g/dL (5.8-8.3)
--- NOTE | 2017-04-13 07:07 | CP.PCM.PCO ---
Physician Communication Note - Physician Communication Note Physician Communication Note: Much improved/C/S pending/Need CD Clearance [id number] stones)
--- NOTE | 2017-04-13 07:32 | CP.PCM.PN ---
<ShanaeCaitlyn - Last Filed: 04/13/17 07:34> Subjective - Date & Time of Evaluation Date of Evaluation: 04/13/17 Time of Evaluation: :29 - Subjective Subjective: General Surgery Progress note for Dr. Cardenas PT S&E at bedside. NATHALIA. Patient had ERCP yesterday with stone removal. Patient states shes tolerating pain well. Patient denies F/C, N/V, Abdominal pain Objective - Vital Signs/Intake and Output Vital Signs (last 24 hours): Temp Pulse Resp BP Pulse Ox 98.4 F 71 20 144/70 100 04/13/17 06:00 04/13/17 06:00 04/13/17 06:00 04/13/17 06:00 04/13/17 06:00 Intake and Output: 04/13/17 04/13/17 06:59 18:59 Intake Total 0 1800 Output Total 1400 Balance -1400 1800 - Medications Medications: Current Medications Hydromorphone HCl (Dilaudid) 0.5 mg IVP Q4H PRN PRN Reason: Pain, moderate (4-7) Last Admin: 04/11/17 21:53 Dose: 0.5 mg Aztreonam (Azactam 1 Gm) 100 mls @ 100 mls/hr IVPB Q8 [facility]ACK[facility] PRN Reason: Protocol Stop: 04/19/17 22:31 Last Admin: 04/13/17 06:05 Dose: 100 mls/hr Metronidazole (Flagyl) 500 mg in 100 mls @ 100 mls/hr IVPB Q8 [facility]ACK[facility] PRN Reason: Protocol Stop: 04/19/17 22:32 Last Admin: 04/13/17 06:06 Dose: 100 mls/hr Linezolid (Zyvox 600mg/300ml D5w) 600 mg in 300 mls @ 200 mls/hr IVPB Q12 [facility] PRN Reason: Protocol Stop: 04/19/17 22:33 Last Admin: 04/12/17 21:54 Dose: 200 mls/hr Iron Sucrose 100 mg/ Sodium (Chloride) 105 mls @ 210 mls/hr IVPB DAILY [facility] Stop: 04/15/17 10:29 Sodium Chloride (Sodium Chloride 0.9%) 1,000 mls @ 100 mls/hr IV .Q10H [facility] Last Admin: 04/12/17 21:54 Dose: 100 mls/hr Metoprolol Tartrate (Lopressor) 25 mg PO DAILY [facility] Last Admin: 04/12/17 11:23 Dose: 25 mg Ondansetron HCl (Zofran Inj) 8 mg IM Q6 PRN PRN Reason: Nausea/Vomiting - Labs Labs: 04/13/17 05:10 04/13/17 05:10 PT 12.7 Seconds (9.9-11.8) H 04/12/17 05:15 INR 1.18 (0.93-1.08) H 04/12/17 05:15 APTT 28.5 Seconds (23.7-30.8) 04/12/17 05:15 Assessment and Plan - Assessment and Plan (Free Text) Assessment: 82 y/o F w/ ascending cholangitis s/p open cholecystectomy in the past. Choledocholithiasis s/p ERCP with stone removal. Plan: c/w with current pain management c/w IV Abx f/u GI recommendations continue diet per GI Patient does not need any surgical intervention at this time Caitlyn Jolly DO PGY1 <Bin Cardenas - Last Filed: 04/14/17 10:09> Objective - Vital Signs/Intake and Output Vital Signs (last 24 hours): Temp Pulse Resp BP Pulse Ox 97.7 F 79 20 160/81 H 97 04/14/17 06:00 04/14/17 06:00 04/14/17 06:00 04/14/17 06:00 04/14/17 06:00 Intake and Output: 04/14/17 04/14/17 06:59 18:59 Intake Total 420 Balance 420 - Medications Medications: Current Medications Clonidine HCl (Catapres) 0.1 mg PO Q6H PRN PRN Reason: Systolic Blood Pressure Aztreonam (Azactam 1 Gm) 100 mls @ 100 mls/hr IVPB Q8 [facility] PRN Reason: Protocol Stop: 04/19/17 22:31 Last Admin: 04/14/17 06:31 Dose: 100 mls/hr Metronidazole (Flagyl) 500 mg in 100 mls @ 100 mls/hr IVPB Q8 [facility] PRN Reason: Protocol Stop: 04/19/17 22:32 Last Admin: 04/14/17 06:32 Dose: 100 mls/hr Linezolid (Zyvox 600mg/300ml D5w) 600 mg in 300 mls @ 200 mls/hr IVPB Q12 [facility] PRN Reason: Protocol Stop: 04/19/17 22:33 Last Admin: 04/13/17 21:23 Dose: 200 mls/hr Iron Sucrose 100 mg/ Sodium (Chloride) 105 mls @ 210 mls/hr IVPB DAILY [facility] Stop: 04/15/17 10:29 Last Admin: 04/13/17 09:12 Dose: 210 mls/hr Magnesium Oxide (Mag-Ox) 400 mg PO BID [facility] Stop: 04/15/17 23:59 Metoprolol Tartrate (Lopressor) 25 mg PO BID [facility] Last Admin: 04/13/17 17:18 Dose: 25 mg Ondansetron HCl (Zofran Inj) 8 mg IM Q6 PRN PRN Reason: Nausea/Vomiting Potassium Phos/Sodium Phos (Neutra-Phos) 1 pkt PO TID [facility] Stop: 04/15/17 23:59 - Labs Labs: 04/14/17 06:00 04/14/17 06:00 PT 12.7 Seconds (9.9-11.8) H 04/12/17 05:15 INR 1.18 (0.93-1.08) H 04/12/17 05:15 APTT 28.5 Seconds (23.7-30.8) 04/12/17 05:15 Assessment and Plan - Assessment and Plan (Free Text) Assessment: 3 large Common duct stones removed-Multiple residual stones impacted-Will need ERCP-Spyglass removal on an interval basis Chadwick Cardenas MD FACS
[2017-04-13] MEDS ORDERED: Magnesium Sulfate 2 GM in Sodium Chloride 0.9% 100 ML IV ONE (08:04)
[2017-04-13] MEDS: Linezolid 600 mg in D5W 300 ml 600 MG/300 ML BAG IVPB SCH ×2 (09:12→21:23)
--- NOTE | 2017-04-13 10:50 | CP.PCM.PN ---
<Dayana Jauregui - Last Filed: 04/13/17 10:41> Subjective - Date & Time of Evaluation Date of Evaluation: 04/13/17 Time of Evaluation: 09:10 - Subjective Subjective: seen and examined at the bedside this morning, chart was reviewed. Patient status post EGD/ERCP,patient found to have on endoscopy chronic gastritis and multiple duodenal ulcers with clean base, ERCP revealed multiple stones contained in the main bile duct, patient underwent a sphincterotomy with biliary tree sleep and a 10 Lithuanian by 9 cm plastic stent placed in common bile duct. CBD stones were found with partial removal. Patient denies any nausea, vomiting, fever or chills. Her abdominal pain has improved. No reports of acute overnight events. Objective - Vital Signs/Intake and Output Vital Signs (last 24 hours): Temp Pulse Resp BP Pulse Ox 98.4 F 71 20 144/70 100 04/13/17 06:00 04/13/17 09:11 04/13/17 06:00 04/13/17 09:11 04/13/17 06:00 Intake and Output: 04/13/17 04/13/17 06:59 18:59 Intake Total 0 1800 Output Total 1400 Balance -1400 1800 - Medications Medications: Current Medications Hydromorphone HCl (Dilaudid) 0.5 mg IVP Q4H PRN PRN Reason: Pain, moderate (4-7) Last Admin: 04/11/17 21:53 Dose: 0.5 mg Aztreonam (Azactam 1 Gm) 100 mls @ 100 mls/hr IVPB Q8 JACKY PRN Reason: Protocol Stop: 04/19/17 22:31 Last Admin: 04/13/17 06:05 Dose: 100 mls/hr Metronidazole (Flagyl) 500 mg in 100 mls @ 100 mls/hr IVPB Q8 JACKY PRN Reason: Protocol Stop: 04/19/17 22:32 Last Admin: 04/13/17 06:06 Dose: 100 mls/hr Linezolid (Zyvox 600mg/300ml D5w) 600 mg in 300 mls @ 200 mls/hr IVPB Q12 JACKY PRN Reason: Protocol Stop: 04/19/17 22:33 Last Admin: 04/13/17 09:12 Dose: 200 mls/hr Iron Sucrose 100 mg/ Sodium (Chloride) 105 mls @ 210 mls/hr IVPB DAILY [facility] Stop: 04/15/17 10:29 Last Admin: 04/13/17 09:12 Dose: 210 mls/hr Sodium Chloride (Sodium Chloride 0.9%) 1,000 mls @ 100 mls/hr IV .Q10H [facility] Last Admin: 04/12/17 21:54 Dose: 100 mls/hr Potassium Chloride (Potassium Chloride 20 Meq/100 Ml) 20 meq in 100 mls @ 50 mls/hr IVPB ONCE ONE Stop: 04/13/17 12:14 Metoprolol Tartrate (Lopressor) 25 mg PO DAILY [facility] Last Admin: 04/13/17 09:11 Dose: 25 mg Ondansetron HCl (Zofran Inj) 8 mg IM Q6 PRN PRN Reason: Nausea/Vomiting - Labs Labs: 04/13/17 05:10 04/13/17 05:10 PT 12.7 Seconds (9.9-11.8) H 04/12/17 05:15 INR 1.18 (0.93-1.08) H 04/12/17 05:15 APTT 28.5 Seconds (23.7-30.8) 04/12/17 05:15 - Constitutional Appears: No Acute Distress - Head Exam Head Exam: NORMOCEPHALIC - Eye Exam Eye Exam: Normal appearance. absent: Scleral icterus - ENT Exam ENT Exam: Mucous Membranes Moist - Neck Exam Neck Exam: Normal Inspection - Respiratory Exam Respiratory Exam: Clear to Ausculation Bilateral, NORMAL BREATHING PATTERN. absent: Respiratory Distress - Cardiovascular Exam Cardiovascular Exam: +S1, +S2 - GI/Abdominal Exam GI & Abdominal Exam: Soft, Tenderness (right upper quadrant mild), Normal Bowel Sounds. absent: Guarding, Rebound - Extremities Exam Extremities Exam: Normal Capillary Refill. absent: Calf Tenderness, Pedal Edema - Neurological Exam Neurological Exam: Alert, Awake, Oriented x3 Assessment and Plan - Assessment and Plan (Free Text) Assessment: Assessment: Improved Epigastric pain/right upper quadrant pain Status post EGD/ERCP: duodenal ulcers, gastritis, status post sphincterotomy with biliary sweep and status post stent placement Dilated common bile duct rule out CBD stone History of cholecystectomy Elevated liver enzymes, with elevated amylase and lipase consider gallstone pancreatitis/cholangitis History of coronary artery disease That is post pacemaker placement Hypertension Plan: Continue to trend liver enzymes, which is improving Continue antibiotics Follow-up biliary aspirate Start clear liquid Patient will need repeat ERCP with spyglass Continue PPI and DVT prophylaxis Seen and discussed with Dr. Cancino <Cecelia Cancino V - Last Filed: 04/13/17 23:26> Objective - Vital Signs/Intake and Output Vital Signs (last 24 hours): Temp Pulse Resp BP Pulse Ox 97.9 F 72 20 172/88 H 96 04/13/17 16:00 04/13/17 18:54 04/13/17 16:00 04/13/17 18:54 04/13/17 16:00 Intake and Output: 04/13/17 04/14/17 18:59 06:59 Intake Total 1800 300 Balance 1800 300 - Medications Medications: Current Medications Clonidine HCl (Catapres) 0.1 mg PO Q6H PRN PRN Reason: Systolic Blood Pressure Hydromorphone HCl (Dilaudid) 0.5 mg IVP Q4H PRN PRN Reason: Pain, moderate (4-7) Last Admin: 04/13/17 21:26 Dose: 0.5 mg Aztreonam (Azactam 1 Gm) 100 mls @ 100 mls/hr IVPB Q8 JACKY PRN Reason: Protocol Stop: 04/19/17 22:31 Last Admin: 04/13/17 21:17 Dose: 100 mls/hr Metronidazole (Flagyl) 500 mg in 100 mls @ 100 mls/hr IVPB Q8 JACKY PRN Reason: Protocol Stop: 04/19/17 22:32 Last Admin: 04/13/17 21:22 Dose: 100 mls/hr Linezolid (Zyvox 600mg/300ml D5w) 600 mg in 300 mls @ 200 mls/hr IVPB Q12 JACKY PRN Reason: Protocol Stop: 04/19/17 22:33 Last Admin: 04/13/17 21:23 Dose: 200 mls/hr Iron Sucrose 100 mg/ Sodium (Chloride) 105 mls @ 210 mls/hr IVPB DAILY [facility] Stop: 04/15/17 10:29 Last Admin: 04/13/17 09:12 Dose: 210 mls/hr Metoprolol Tartrate (Lopressor) 25 mg PO BID [facility] Last Admin: 04/13/17 17:18 Dose: 25 mg Ondansetron HCl (Zofran Inj) 8 mg IM Q6 PRN PRN Reason: Nausea/Vomiting - Labs Labs: 04/13/17 05:10 04/13/17 05:10 PT 12.7 Seconds (9.9-11.8) H 04/12/17 05:15 INR 1.18 (0.93-1.08) H 04/12/17 05:15 APTT 28.5 Seconds (23.7-30.8) 04/12/17 05:15 Attending/Attestation - Attestation Notes (Text): 04/13/17 23:26 p
--- NOTE | 2017-04-13 18:01 | PN ---
DATE: 04/13/2017 REASON FOR CONSULTATION: Preop evaluation, risk stratification for ERCP, stones in common bile duct. SUBJECTIVE: The patient denies any chest pain, shortness of breath, or any palpitation lying flat on the bed. OBJECTIVE: GENERAL: Not in apparent distress, status post ERCP, possibly needs another ERCP in a day or two. VITAL SIGNS: Temperature afebrile. Heart rate 71, blood pressure 144/70. HEENT: PERRLA intact. NECK: Supple. No carotid bruit or thyromegaly. CHEST: Clear to auscultation. HEART: S1 and S2, regular. ABDOMEN: Soft. EXTREMITIES: Clubbing, cyanosis negative. LABORATORY DATA: Blood workup as follows; WBC 11, hemoglobin 10.7, hematocrit 32.9, platelet count 136. Chemistry shows sodium 136, potassium 3.6, chloride 104, carbon dioxide 26, anion gap of 10, BUN 12, creatinine 0.9. Total protein 5.6, albumin 2.7, globulin ratio 0.9. IMPRESSION: An 82-year-old female with past medical history significant for nonobstructive coronary artery disease status post cardiac catheterization twice in 2004 and 2013, history of permanent pacemaker in 03/2016, history of paroxysmal atrial fibrillation, psychogenic polydipsia, hypothyroidism, history of alcohol abuse, admitted with multiple stones in common bile duct, ascending cholangitis, pancreatitis. Yesterday underwent ERCP. The patient remained stable cardiac garcia, no chest pain, no shortness of breath, no palpitation. RECOMMENDATION: Continue broad-spectrum antibiotic. Continue low dose beta-anna. If blood pressure remains high, we are going to add on Cardizem, but for now, we will continue beta-anna. Discontinue telemetry. Additionally, the patient needs another ERCP. The patient is cleared from cardiology point of view to go for ERCP as no evidence of congestive heart failure. It is mixed with baseline paroxysmal atrial fibrillation with history of angina. Last catheterization, in 2015 shows ejection fraction of 55%, trace aortic regurgitation, trace to mild mitral regurgitation, mild tricuspid regurgitation, RV systolic pressure 37; history of permanent pacemaker, [employer] single chamber VVI, stable. We will follow with you. We will supplement potassium and magnesium. I will repeat the lab in the morning and discontinue telemetry. Thank you Dr. Cardenas for providing me the opportunity in taking care of this patient. Javier Swanson MD [facility] # [id number]
--- NOTE | 2017-04-13 19:27 | PN ---
DATE: 04/13/2017 SUBJECTIVE: The patient seen in bed, in no acute distress. Nontoxic. The patient was seen earlier this morning. PHYSICAL EXAMINATION: VITAL SIGNS: Temperature is 97, blood pressure is 170/90, respiratory rate of 20, heart rate of 66. HEENT: Unremarkable. NECK: Supple. LUNGS: Decreased breath sounds. HEART: Normal S1 and S2. ABDOMEN: Soft. LABORATORY DATA: Reveals a white count is down to 11,000, hemoglobin to 10, platelets of 136. Coagulation is noted and BUN of 12, creatinine of 0.9. LFTs are noted. Urinalysis is noted. Blood cultures have Gram-negative ghislaine and Gram-positive cocci in both bottles. The Gram-positive cocci is probable strep. The Gram-negative ghislaine has not been identified. There is also E. coli in the urine. Pansensitive E. coli. MEDICATIONS: The patient is currently on aztreonam, Flagyl and Zyvox. ASSESSMENT AND PLAN: An 82-year-old female with past medical of hypertension, coronary artery disease, congestive heart failure, peripheral vascular disease, cataract, admitted with sepsis with choledocholithiasis and pancreatitis with multiple allergies including LEVAQUIN, MOXIFLOXACIN, PENICILLIN, VANCOMYCIN AND SULFA and with Gram-positive cocci, probable streptococcus and Gram-negative ghislaine bacteriemia and with ascending cholangitis, history of cholecystectomy, status post procedure day #1. The patient was taken to the OR yesterday. The patient had an endoscopy and endoscopic retrograde cholangiopancreatography, endoscopic retrograde cholangiopancreatography with sphincterotomy and endoscopic retrograde cholangiopancreatography with balloon extraction stones done by Dr. Cancino and Dayana Jauregui' note is reviewed. We will check on the identification, the Gram-positive cocci believed to be streptococcus and a Gram-negative ghislaine in the blood. We will check on the repeat blood cultures and Dr. Oneal's communication report is reviewed. Dr. Caitlyn Jolly's note is reviewed. We will order an echocardiogram to rule out endocarditis and check on the repeat cultures. We will make further recommendations upon the availability of initial workup. The patient is much improved today. Sebastian Rosas MD
[2017-04-13] MEDS: HYDROmorphone 0.5 mg/0.5 ml ISec IVP PRN (21:26)
--- NOTE | 2017-04-14 03:29 | PN ---
DATE: 04/13/2017 SUBJECTIVE: The patient has no complaints of any chest pain, no shortness of breath, no headaches or dizziness. PHYSICAL EXAMINATION: VITAL SIGNS: Temperature is 97.9, pulse is 72, blood pressure is 172/88, and respiration is 18. GENERAL: The patient is lying in bed, flat, comfortable. HEENT: No oral lesion. Anicteric sclerae. Moist mucosa. NECK: No JVD, adenopathy, or thyromegaly. CARDIOVASCULAR: S1 and S2, regular. No murmurs, rubs, or gallops. LUNGS: Clear to auscultation bilaterally. No wheeze, rales, or rhonchi. ABDOMEN: Bowel sounds are positive, soft, nontender and nondistended. EXTREMITIES: no cyanosis, clubbing or edema. LABORATORY DATA: White count 11.1, hemoglobin 10.6, and creatinine 0.9. ASSESSMENT: 1. Status post esophagogastroduodenoscopy. 2. Gastritis. 3. Duodenal ulcer. 4. Insertion of stent in the common bile duct. 5. Common bile duct stone removal. 6. Ascending cholangitis. 7. Sepsis. 8. Coronary artery disease. 9. Hypertension. PLAN: The patient is currently comfortable. She has improvement of her white count. She has blood cultures that were positive. She will get repeat blood work tomorrow. She is on Zofran for nausea. She is on linezolid because of multiple allergies. She has an allergy to PENICILLIN. She is on clonidine as needed for hypertension. She is on iron replacement. Manjit Ventura MD
[2017-04-14] MEDS: Aztreonam 1 Gm in NS 100mL 100 ML IVPB SCH ×3 (06:31→22:21)
[2017-04-14] MEDS: metroNIDAZOLE IV 500 mg/100 ml 500 MG/100 ML BAG IVPB SCH (06:32)
[2017-04-14 06:53] LABS: BASO # 0.02 K/mm3 (0.0-2.0); BASO % 0.2 % (0.0-3.0); EOS # 0.4 (0.0-0.7); EOS % 4.9 % (1.5-5.0); GRAN # 5.13 (1.4-6.5); HEMATOCRIT 34.3 % (36.0-48.0); LYMPH # 2.3 (1.2-3.4); LYMPH % 25.2 % (22.0-35.0); MEAN CELL VOLUME 85.1 fl (80.0-105.0); MEAN CORPUSCULAR HEMOGLOBIN 27.3 pg (25.0-35.0); MEAN CORPUSCULAR HGB CONC 32.1 g/dl (31.0-37.0); MEAN PLATELET VOLUME 10.6 fl (7.0-11.0); MONO # 1.1 (0.1-0.6); MONO % 12.7 % (1.0-6.0)
[2017-04-14 07:16] LABS: ALKALINE PHOSPHATASE 132 U/L (38-133); ALT/SGPT 58 U/L (7-56); AST/SGOT 34 U/L (15-39); BILIRUBIN,TOTAL 1.7 mg/dL (0.2-1.3); BLOOD UREA NITROGEN 9 mg/dL (7-21); CALCIUM 8.5 mg/dL (8.4-10.5); CARBON DIOXIDE 24 mmol/L (21-33); CHLORIDE 106 mmol/L (98-107); GFR AFRICAN-AMERICAN > 60; GLUCOSE,RANDOM 82 mg/dL (70-110); MAGNESIUM 1.7 mg/dL (1.7-2.2); PHOSPHOROUS 1.8 mg/dL (2.5-4.5); POTASSIUM 3.6 mmol/L (3.6-5.0); SODIUM 137 mmol/L (132-148); TOTAL PROTEIN 5.4 g/dL (5.8-8.3)
[2017-04-14] MEDS ORDERED: Iodixanol 320 MG/ML 100 ML BOTTLE IV ONE (09:23)
[2017-04-14] MEDS: Potassium & Sodium Phosphate PO SCH ×3 (09:54→17:53)
[2017-04-14] MEDS: Magnesium Oxide 400 mg Tab UD PO SCH ×2 (09:54→17:53)
[2017-04-14] MEDS: Linezolid 600 mg in D5W 300 ml 600 MG/300 ML BAG IVPB SCH ×2 (09:54→22:22)
--- NOTE | 2017-04-14 10:32 | CT ---
PROCEDURE: CT Chest with contrast (Pulmonary Angiogram) HISTORY: sob COMPARISON: None available. TECHNIQUE: Axial computed tomography images were obtained of the chest in the pulmonary arterial phase of enhancement. Coronal and sagittal reformatted images were created and reviewed. Intravenous contrast dose: 100 cc of Visipaque Radiation dose: Total exam DLP = 366 mGy-cm. This CT exam was performed using one or more of the following dose reduction techniques: Automated exposure control, adjustment of the mA and/or kV according to patient size, and/or use of iterative reconstruction technique. FINDINGS: PULMONARY ARTERIES: Unremarkable. No pulmonary embolism. AORTA: No acute findings. No thoracic aortic aneurysm. LUNGS: Unremarkable. No nodule, mass or pulmonary consolidation. Calcified granuloma in the right lung PLEURAL SPACES: Moderate size bilateral pleural effusions are seen right greater than left. HEART: Unremarkable. No cardiomegaly. No significant pericardial effusion. LYMPH NODES: No lymphadenopathy. BONES, CHEST WALL: Unremarkable. No fracture or destructive lesion OTHER FINDINGS: Unremarkable. IMPRESSION: No evidence of pulmonary embolus. Moderate size bilateral pleural effusions right greater than left
--- NOTE | 2017-04-14 12:07 | CP.PCM.PN ---
Subjective - Date & Time of Evaluation Date of Evaluation: 04/14/17 Time of Evaluation: 10:05 - Subjective Subjective: Comfortable in bed, no fevers, not in distress, no abdominal pain currently. Objective - Vital Signs/Intake and Output Vital Signs (last 24 hours): Temp Pulse Resp BP Pulse Ox 97.7 F 79 20 160/81 H 97 04/14/17 06:00 04/14/17 09:54 04/14/17 06:00 04/14/17 09:54 04/14/17 06:00 Intake and Output: 04/14/17 04/14/17 06:59 18:59 Intake Total 420 Balance 420 - Medications Medications: Current Medications Clonidine HCl (Catapres) 0.1 mg PO Q6H PRN PRN Reason: Systolic Blood Pressure Aztreonam (Azactam 1 Gm) 100 mls @ 100 mls/hr IVPB Q8 JACKY PRN Reason: Protocol Stop: 04/19/17 22:31 Last Admin: 04/14/17 06:31 Dose: 100 mls/hr Metronidazole (Flagyl) 500 mg in 100 mls @ 100 mls/hr IVPB Q8 JACKY PRN Reason: Protocol Stop: 04/19/17 22:32 Last Admin: 04/14/17 06:32 Dose: 100 mls/hr Linezolid (Zyvox 600mg/300ml D5w) 600 mg in 300 mls @ 200 mls/hr IVPB Q12 JACKY PRN Reason: Protocol Stop: 04/19/17 22:33 Last Admin: 04/14/17 09:54 Dose: 200 mls/hr Iron Sucrose 100 mg/ Sodium (Chloride) 105 mls @ 210 mls/hr IVPB DAILY [facility]S [facility] 234 BEDS AT THE [facility] Stop: 04/15/17 10:29 Last Admin: 04/14/17 09:54 Dose: 210 mls/hr Magnesium Oxide (Mag-Ox) 400 mg PO BID [facility]S [facility]CLUDE 234 BEDS AT THE [facility] Stop: 04/15/17 23:59 Last Admin: 04/14/17 09:54 Dose: 400 mg Metoprolol Tartrate (Lopressor) 25 mg PO BID [facility] 234 BEDS AT THE [facility] Last Admin: 04/14/17 09:54 Dose: 25 mg Ondansetron HCl (Zofran Inj) 8 mg IM Q6 PRN PRN Reason: Nausea/Vomiting Potassium Phos/Sodium Phos (Neutra-Phos) 1 pkt PO TID [facility]ACK[facility] Stop: 04/15/17 23:59 Last Admin: 04/14/17 09:54 Dose: 1 pkt - Labs Labs: 04/14/17 06:00 04/14/17 06:00 PT 12.7 Seconds (9.9-11.8) H 04/12/17 05:15 INR 1.18 (0.93-1.08) H 04/12/17 05:15 APTT 28.5 Seconds (23.7-30.8) 04/12/17 05:15 - Constitutional Appears: Non-toxic, No Acute Distress - Head Exam Head Exam: NORMAL INSPECTION - Respiratory Exam Respiratory Exam: Decreased Breath Sounds - Cardiovascular Exam Cardiovascular Exam: +S1, +S2 - GI/Abdominal Exam GI & Abdominal Exam: Soft. absent: Tenderness Assessment and Plan - Assessment and Plan (Free Text) Plan: Assessment Sepsis due to acute cholangitis with associated gram positive cocci and E. coli bacteremia, and acute pancreatitis S/P ERCP with sphinceterotomy, extraction of biliary stones POD #2 HTN CAD peripheral vascular disease cataracts chronic CHF Plan Antibiotics options are limited due to the patient's allergy profile - continue Zyvox, Azactam and Flagyl pending final identification and sensitivities of the gram positive cocci in the blood and bile fluid follow up repeat blood cx taken from yesterday, as well as 2D echo to rule out vegetations will continue to monitor clinically
--- NOTE | 2017-04-14 12:17 | PN ---
DATE: 04/14/2017 REASON FOR CONSULTATION: Followup preop evaluation, risk stratification for ERCP, status post removal of gallbladder stone in common bile duct. SUBJECTIVE: The patient denies any chest pain, complained of mild epigastric pain earlier, now it is resolved. PHYSICAL EXAMINATION: GENERAL: Lying flat in the bed not in apparent distress. VITAL SIGNS: As follows: Temperature afebrile, heart rate 79, and blood pressure 150/81. HEENT: PERRLA intact. NECK: Supple. No carotid bruit or thyromegaly. CHEST: Clear to auscultation. HEART: S1 and S2 regular. ABDOMEN: Soft. EXTREMITIES: Clubbing and cyanosis negative, mild tenderness in the epigastric noted. LABORATORY DATA: Blood workup as follows; WBC 9, hemoglobin 11, hematocrit 34.3, and platelet count 130. Chemistry shows sodium 137, potassium 3.6, chloride 106, carbon dioxide 24, anion gap of 11, BUN 9, creatinine 0.7, magnesium 1.7, phosphorous 1.8, total protein 5.4, albumin 2.7, and albumin-globulin ratio 1. IMPRESSION: An 82-year-old female with a past medical history significant for nonobstructive coronary artery disease, status post cardiac catheterization twice in 2004 and 2013, history of permanent pacemaker 03/2016, history of paroxysmal atrial fibrillation secondary to polydipsia, hypothyroidism, admitted with history of alcohol abuse, admitted with multiple stone in common bile duct, ascending cholangitis, pancreatitis, underwent yesterday endoscopic retrograde cholangiopancreatography, now WBC is decreasing, as well as, bilirubin is decreasing as well as liver functions improved, now the patient has hypokalemia and hypophosphatemia. The patient is developing [id number] protein-calorie malnutrition, which was not present on admission. RECOMMENDATIONS: Supplement phosphate. Increase nutritional support as tolerated. Excessive control of blood pressure on p.r.n. clonidine. Continue antibiotic. We will add on increased renal support. Echo was ordered by Dr. Rosas to rule out endocarditis. We will follow with you. Thank you Dr. Cardenas for providing the opportunity in taking care of Flor Chandler. Javier Swanson MD
--- NOTE | 2017-04-14 15:28 | CARD ---
APPROVED REPORT EXAM: Two-dimensional and M-mode echocardiogram with Doppler and color Doppler. INDICATION Infection:Rule out subacute bacterial endocarditis 2D DIMENSIONS Left Atrium (2D)4.5 (1.6-4.0cm)IVSd1.1 (0.7-1.1cm) LVDd4.3 (3.9-5.9cm)PWd1.2 (0.7-1.1cm) M-Mode DIMENSIONS Aortic Root3.10 (2.2-3.7cm)Aortic Cusp Exc.1.50 (1.5-2.0cm) Aortic Valve AoV Peak Nsgpwlsp018.0cm/Albertina Peak GR.13mmHgAI P 1/2 [id number] Mitral Valve MV E Jephbmzk064.0cm/sMV A Prienqld63.6cm/sE/A ratio1.2 TDI Lateral E' Peak V10.00cm/sMedial E' Peak V6.53cm/sE/Lateral E'12.1 E/Medial E'18.5 Pulmonary Valve PV Peak Jlqyzvvp66.3cm/sPV Peak Grad.3mmHg Tricuspid Valve TR Peak [id number]/sRAP [id number] Peak Gr.30mmHg [id number] LEFT VENTRICLE The left ventricle is normal size. There is borderline concentric left ventricular hypertrophy. The left ventricular function is normal.EF-55% There is normal LV segmental wall motion. The left ventricular diastolic function is normal. No left ventricle thrombus noted on this study. There is no ventricular septal defect visualized. There is no left ventricular aneurysm. There is no mass noted in the left ventricle. RIGHT VENTRICLE The right ventricle is mildly dilated. There is normal right ventricular wall thickness. Systolic function is mildly reduced. There is a pacemaker lead in the right ventricle. ATRIA The left atrium is mildly dilated. The right atrium is borderline dilated. There is a catheter/pacemaker lead seen in the right atrium. The interatrial septum is intact with no evidence for an atrial septal defect. AORTIC VALVE The aortic valve is thickened but opens well. There is trace to mild aortic regurgitation. Aortic sclerosis Vs mild As There is no aortic valvular vegetation. MITRAL VALVE The mitral valve is thickened but opens well. Mitral regurgitation is mild. There is no mitral valve stenosis. There is no evidence of mitral valve prolapse. TRICUSPID VALVE The tricuspid valve leaflets are thickened , but open well. There is mild tricuspid regurgitation.RVSp-40 mmof Hg There is no tricuspid valve stenosis. There is no tricuspid valve prolapse or vegetation. PULMONIC VALVE The pulmonary valve is normal in structure. There is trace pulmonic valvular regurgitation. There is no pulmonic valvular stenosis. GREAT VESSELS The aortic root is normal in size. The ascending aorta is normal in size. The pulmonary artery is normal. The IVC is normal in size and collapses >50% with inspiration. PERICARDIAL EFFUSION There is no pleural effusion. There is a trace to small pericardial effusion. <Conclusion> The left ventricle is normal size. There is borderline concentric left ventricular hypertrophy. The left ventricular function is normal.EF-55% There is trace to mild aortic regurgitation. Aortic sclerosis Vs mild As Mitral regurgitation is mild. There is mild tricuspid regurgitation.RVSp-40 mmof Hg The IVC is normal in size and collapses >50% with inspiration. There is a trace to small pericardial effusion. There is a pacemaker lead in the right ventricle. There is a catheter/pacemaker lead seen in the right atrium. No vegetattion or thrombus noted.
--- NOTE | 2017-04-14 16:30 | CP.PCM.PN ---
Subjective - Date & Time of Evaluation Date of Evaluation: 04/14/17 Time of Evaluation: 15:12 - Subjective Subjective: seen and examined at the bedside, in no acute overnight events reported. Tolerating oral intake. No reports of fever, chills or abdominal pain. Had SOB earlier today. No resp distress, now, comfortable. Objective - Vital Signs/Intake and Output Vital Signs (last 24 hours): Temp Pulse Resp BP Pulse Ox 97.7 F 79 20 160/81 H 97 04/14/17 06:00 04/14/17 09:54 04/14/17 06:00 04/14/17 09:54 04/14/17 06:00 Intake and Output: 04/14/17 04/14/17 06:59 18:59 Intake Total 420 480 Balance 420 480 - Medications Medications: Current Medications Clonidine HCl (Catapres) 0.1 mg PO Q6H PRN PRN Reason: Systolic Blood Pressure Aztreonam (Azactam 1 Gm) 100 mls @ 100 mls/hr IVPB Q8 JACKY PRN Reason: Protocol Stop: 04/19/17 22:31 Last Admin: 04/14/17 06:31 Dose: 100 mls/hr Linezolid (Zyvox 600mg/300ml D5w) 600 mg in 300 mls @ 200 mls/hr IVPB Q12 JACKY PRN Reason: Protocol Stop: 04/19/17 22:33 Last Admin: 04/14/17 09:54 Dose: 200 mls/hr Iron Sucrose 100 mg/ Sodium (Chloride) 105 mls @ 210 mls/hr IVPB DAILY JACKY Stop: 04/15/17 10:29 Last Admin: 04/14/17 09:54 Dose: 210 mls/hr Magnesium Oxide (Mag-Ox) 400 mg PO BID JACKY Stop: 04/15/17 23:59 Last Admin: 04/14/17 09:54 Dose: 400 mg Metoprolol Tartrate (Lopressor) 25 mg PO BID [facility] Last Admin: 04/14/17 09:54 Dose: 25 mg Metronidazole (Flagyl) 500 mg PO Q8 JACKY Stop: 04/19/17 22:32 Ondansetron HCl (Zofran Inj) 8 mg IM Q6 PRN PRN Reason: Nausea/Vomiting Potassium Phos/Sodium Phos (Neutra-Phos) 1 pkt PO TID [facility] Stop: 04/15/17 23:59 Last Admin: 04/14/17 09:54 Dose: 1 pkt - Labs Labs: 04/14/17 06:00 04/14/17 06:00 PT 12.7 Seconds (9.9-11.8) H 04/12/17 05:15 INR 1.18 (0.93-1.08) H 04/12/17 05:15 APTT 28.5 Seconds (23.7-30.8) 04/12/17 05:15 - Constitutional Appears: No Acute Distress - Eye Exam Eye Exam: Normal appearance. absent: Scleral icterus - ENT Exam ENT Exam: Mucous Membranes Moist - Neck Exam Neck Exam: Normal Inspection - Respiratory Exam Respiratory Exam: NORMAL BREATHING PATTERN. absent: Respiratory Distress - Cardiovascular Exam Cardiovascular Exam: +S1, +S2 - GI/Abdominal Exam GI & Abdominal Exam: Soft. absent: Distended, Guarding, Tenderness, Normal Bowel Sounds, Rebound - Extremities Exam Extremities Exam: absent: Calf Tenderness, Pedal Edema - Neurological Exam Neurological Exam: Alert, Awake, Oriented x3 - Skin Skin Exam: Dry, Warm Assessment and Plan - Assessment and Plan (Free Text) Assessment: Assessment: Status post EGD/ERCP: duodenal ulcers, gastritis, status post sphincterotomy with biliary sweep and status post stent placement Dilated common bile duct rule out CBD stone History of cholecystectomy Elevated liver enzymes, with elevated amylase and lipase consider gallstone pancreatitis/cholangitis History of coronary artery disease That is post pacemaker placement Hypertension Plan: Continue to trend liver enzymes, which is improving Continue antibiotics Follow-up biliary aspirate heart healthy diet Patient will need repeat ERCP with spyglass 3-4 WEEKS start actigall see orders Continue PPI and DVT prophylaxis Discussed with Dr. Cancino ADDEDNUDM: pt had ct angio, negative for PE, reveal bilateral effusion R>L
--- NOTE | 2017-04-14 23:59 | CP.PCM.PN ---
Subjective - Date & Time of Evaluation Date of Evaluation: 04/14/17 Time of Evaluation: 23:59 - Subjective Subjective: S: Patient was seen because she had requested a sleeping pill. Has no other complaints now. Medical record was reviewed. O:VSS. Alert, awake, not in distress. LUNGS: Normal breathing pattern. A: Adjustment insomnia. P:Benadryl 25 mg PO now. Objective - Vital Signs/Intake and Output Vital Signs (last 24 hours): Temp Pulse Resp BP Pulse Ox 98.1 F 74 18 187/85 H 99 04/14/17 16:30 04/14/17 17:54 04/14/17 16:30 04/14/17 17:54 04/14/17 16:30 Intake and Output: 04/14/17 04/15/17 18:59 06:59 Intake Total 480 300 Output Total 4 Balance 480 296 - Medications Medications: Current Medications Clonidine HCl (Catapres) 0.1 mg PO Q6H PRN PRN Reason: Systolic Blood Pressure Aztreonam (Azactam 1 Gm) 100 mls @ 100 mls/hr IVPB Q8 JACKY PRN Reason: Protocol Stop: 04/19/17 22:31 Last Admin: 04/14/17 22:21 Dose: 100 mls/hr Linezolid (Zyvox 600mg/300ml D5w) 600 mg in 300 mls @ 200 mls/hr IVPB Q12 JACKY PRN Reason: Protocol Stop: 04/19/17 22:33 Last Admin: 04/14/17 22:22 Dose: 200 mls/hr Iron Sucrose 100 mg/ Sodium (Chloride) 105 mls @ 210 mls/hr IVPB DAILY JACKY Stop: 04/15/17 10:29 Last Admin: 04/14/17 09:54 Dose: 210 mls/hr Magnesium Oxide (Mag-Ox) 400 mg PO BID [facility] Stop: 04/15/17 23:59 Last Admin: 04/14/17 17:53 Dose: 400 mg Metoprolol Tartrate (Lopressor) 25 mg PO BID [facility] Last Admin: 04/14/17 17:54 Dose: 25 mg Metronidazole (Flagyl) 500 mg PO Q8 JACKY Stop: 04/19/17 22:32 Last Admin: 04/14/17 22:21 Dose: 500 mg Ondansetron HCl (Zofran Inj) 8 mg IM Q6 PRN PRN Reason: Nausea/Vomiting Potassium Phos/Sodium Phos (Neutra-Phos) 1 pkt PO TID [facility] Stop: 04/15/17 23:59 Last Admin: 04/14/17 17:53 Dose: 1 pkt Ursodiol (Actigall) 300 mg PO BID [facility] Last Admin: 04/14/17 17:54 Dose: 300 mg - Labs Labs: 04/14/17 06:00 04/14/17 06:00 PT 12.7 Seconds (9.9-11.8) H 04/12/17 05:15 INR 1.18 (0.93-1.08) H 04/12/17 05:15 APTT 28.5 Seconds (23.7-30.8) 04/12/17 05:15
[2017-04-15] MEDS: Aztreonam 1 Gm in NS 100mL 100 ML IVPB SCH ×3 (05:29→21:04)
[2017-04-15 06:16] LABS: BASO # 0.03 K/mm3 (0.0-2.0); BASO % 0.4 % (0.0-3.0); EOS # 0.4 (0.0-0.7); EOS % 4.1 % (1.5-5.0); GRAN # 4.81 (1.4-6.5); GRAN % 56.9 % (50.0-68.0); HEMATOCRIT 35.1 % (36.0-48.0); LYMPH # 2.1 (1.2-3.4); LYMPH % 24.5 % (22.0-35.0); MEAN CELL VOLUME 85.4 fl (80.0-105.0); MEAN CORPUSCULAR HEMOGLOBIN 27.5 pg (25.0-35.0); MEAN CORPUSCULAR HGB CONC 32.2 g/dl (31.0-37.0); MEAN PLATELET VOLUME 10.7 fl (7.0-11.0); MONO # 1.2 (0.1-0.6); MONO % 14.1 % (1.0-6.0); WHITE BLOOD COUNT 8.5 10^3/ul (4.5-11.0)
[2017-04-15 06:26] LABS: ALB/GLOB RATIO 0.9 (1.1-1.8); ALKALINE PHOSPHATASE 145 U/L (38-133); ALT/SGPT 48 U/L (7-56); AST/SGOT 38 U/L (15-39); BILIRUBIN,TOTAL 1.5 mg/dL (0.2-1.3); BLOOD UREA NITROGEN 6 mg/dL (7-21); CALCIUM 8.5 mg/dL (8.4-10.5); CARBON DIOXIDE 26 mmol/L (21-33); CHLORIDE 103 mmol/L (95-110); GFR AFRICAN-AMERICAN > 60; GLUCOSE,RANDOM 88 mg/dL (70-110); MAGNESIUM 1.3 mg/dL (1.7-2.2); PHOSPHOROUS 2.3 mg/dL (2.5-4.5); POTASSIUM 3.6 mmol/L (3.6-5.0); SODIUM 137 mmol/L (132-148); TOTAL PROTEIN 5.8 g/dL (5.8-8.3)
[2017-04-15 07:54] VITALS: RESP 20
[2017-04-15] MEDS: Magnesium Oxide 400 mg Tab UD PO SCH ×2 (10:03→17:01)
[2017-04-15] MEDS: Potassium & Sodium Phosphate PO SCH ×3 (10:03→17:02)
--- NOTE | 2017-04-15 10:25 | CP.PCM.PN ---
Subjective - Date & Time of Evaluation Date of Evaluation: 04/15/17 Time of Evaluation: 09:30 - Subjective Subjective: Seen and examined at the bedside this morning, now denies any nausea, vomiting, had mild abdominal pain this morning, resolved. Tolerating oral intake, had a bowel movement this morning, no diarrhea or bleeding. Denies any shortness of breath or chest pain. No acute overnight events reported. Objective - Vital Signs/Intake and Output Vital Signs (last 24 hours): Temp Pulse Resp BP Pulse Ox 97.8 F 80 20 178/87 H 99 04/15/17 07:53 04/15/17 10:04 04/15/17 07:53 04/15/17 10:04 04/15/17 07:53 Intake and Output: 04/15/17 04/15/17 06:59 18:59 Intake Total 420 Output Total 4 Balance 416 - Medications Medications: Current Medications Clonidine HCl (Catapres) 0.1 mg PO Q6H PRN PRN Reason: Systolic Blood Pressure Aztreonam (Azactam 1 Gm) 100 mls @ 100 mls/hr IVPB Q8 JACKY PRN Reason: Protocol Stop: 04/19/17 22:31 Last Admin: 04/15/17 05:29 Dose: 100 mls/hr Linezolid (Zyvox 600mg/300ml D5w) 600 mg in 300 mls @ 200 mls/hr IVPB Q12 JACKY PRN Reason: Protocol Stop: 04/19/17 22:33 Last Admin: 04/14/17 22:22 Dose: 200 mls/hr Iron Sucrose 100 mg/ Sodium (Chloride) 105 mls @ 210 mls/hr IVPB DAILY JACKY Stop: 04/15/17 10:29 Last Admin: 04/15/17 10:05 Dose: 210 mls/hr Magnesium Oxide (Mag-Ox) 400 mg PO BID [facility] Stop: 04/15/17 23:59 Last Admin: 04/15/17 10:03 Dose: 400 mg Metoprolol Tartrate (Lopressor) 25 mg PO BID [facility] Last Admin: 04/15/17 10:04 Dose: 25 mg Metronidazole (Flagyl) 500 mg PO Q8 JACKY Stop: 04/19/17 22:32 Last Admin: 04/15/17 05:29 Dose: 500 mg Ondansetron HCl (Zofran Inj) 8 mg IM Q6 PRN PRN Reason: Nausea/Vomiting Potassium Phos/Sodium Phos (Neutra-Phos) 1 pkt PO TID [facility] Stop: 04/15/17 23:59 Last Admin: 04/15/17 10:03 Dose: 1 pkt Ursodiol (Actigall) 300 mg PO BID [facility] Last Admin: 04/15/17 10:04 Dose: 300 mg - Labs Labs: 04/15/17 05:50 04/15/17 05:50 PT 12.7 Seconds (9.9-11.8) H 04/12/17 05:15 INR 1.18 (0.93-1.08) H 04/12/17 05:15 APTT 28.5 Seconds (23.7-30.8) 04/12/17 05:15 - Constitutional Appears: No Acute Distress - Eye Exam Eye Exam: Normal appearance. absent: Scleral icterus - ENT Exam ENT Exam: Mucous Membranes Moist - Respiratory Exam Respiratory Exam: Decreased Breath Sounds, NORMAL BREATHING PATTERN. absent: Wheezes, Respiratory Distress - Cardiovascular Exam Cardiovascular Exam: +S1, +S2 - GI/Abdominal Exam GI & Abdominal Exam: Soft, Normal Bowel Sounds. absent: Guarding, Tenderness, Rebound - Extremities Exam Extremities Exam: Normal Capillary Refill. absent: Calf Tenderness, Pedal Edema - Neurological Exam Neurological Exam: Alert, Awake, Oriented x3 - Skin Skin Exam: Dry, Warm Assessment and Plan - Assessment and Plan (Free Text) Assessment: Assessment: Status post EGD/ERCP: duodenal ulcers, gastritis, status post sphincterotomy with biliary sweep and status post stent placement Pleural effusion History of cholecystectomy Elevated liver enzymes,trending down History of coronary artery disease H/O Pacemaker placement Hypertension Plan: Continue to trend liver enzymes, which is improving Continue antibiotics Follow-up biliary aspirate heart healthy diet Patient will need repeat ERCP with spyglass 3-4 WEEKS continue actigall Continue PPI and DVT prophylaxis Seen and discussed with Dr. Godfrey who is covering Dr. Cancino
[2017-04-15] MEDS: Linezolid 600 mg in D5W 300 ml 600 MG/300 ML BAG IVPB SCH ×2 (10:53→21:04)
[2017-04-15] MEDS ORDERED: Magnesium Sulfate 2 GM in Sodium Chloride 0.9% 100 ML IVPB ONE (12:02)
--- NOTE | 2017-04-15 15:34 | CP.PCM.PN ---
Subjective - Date & Time of Evaluation Date of Evaluation: 04/15/17 Time of Evaluation: 10:00 - Subjective Subjective: Comfortable in bed, not in distress, afebrile, much improved abdominal pain, now eating regular diet. No nausea or vomiting, no diarrhea. Objective - Vital Signs/Intake and Output Vital Signs (last 24 hours): Temp Pulse Resp BP Pulse Ox 97.8 F 76 20 156/78 H 99 04/15/17 07:53 04/15/17 07:53 04/15/17 07:53 04/15/17 07:53 04/15/17 07:53 Intake and Output: 04/15/17 04/15/17 06:59 18:59 Intake Total 420 Output Total 4 Balance 416 - Medications Medications: Current Medications Clonidine HCl (Catapres) 0.1 mg PO Q6H PRN PRN Reason: Systolic Blood Pressure Aztreonam (Azactam 1 Gm) 100 mls @ 100 mls/hr IVPB Q8 JACKY PRN Reason: Protocol Stop: 04/19/17 22:31 Last Admin: 04/15/17 05:29 Dose: 100 mls/hr Linezolid (Zyvox 600mg/300ml D5w) 600 mg in 300 mls @ 200 mls/hr IVPB Q12 JACKY PRN Reason: Protocol Stop: 04/19/17 22:33 Last Admin: 04/14/17 22:22 Dose: 200 mls/hr Iron Sucrose 100 mg/ Sodium (Chloride) 105 mls @ 210 mls/hr IVPB DAILY JACKY Stop: 04/15/17 10:29 Last Admin: 04/14/17 09:54 Dose: 210 mls/hr Magnesium Oxide (Mag-Ox) 400 mg PO BID [facility] Stop: 04/15/17 23:59 Last Admin: 04/14/17 17:53 Dose: 400 mg Metoprolol Tartrate (Lopressor) 25 mg PO BID [facility] Last Admin: 04/14/17 17:54 Dose: 25 mg Metronidazole (Flagyl) 500 mg PO Q8 JACKY Stop: 04/19/17 22:32 Last Admin: 04/15/17 05:29 Dose: 500 mg Ondansetron HCl (Zofran Inj) 8 mg IM Q6 PRN PRN Reason: Nausea/Vomiting Potassium Phos/Sodium Phos (Neutra-Phos) 1 pkt PO TID [facility] Stop: 04/15/17 23:59 Last Admin: 04/14/17 17:53 Dose: 1 pkt Ursodiol (Actigall) 300 mg PO BID [facility] Last Admin: 04/14/17 17:54 Dose: 300 mg - Labs Labs: 04/15/17 05:50 04/15/17 05:50 PT 12.7 Seconds (9.9-11.8) H 04/12/17 05:15 INR 1.18 (0.93-1.08) H 04/12/17 05:15 APTT 28.5 Seconds (23.7-30.8) 04/12/17 05:15 - Constitutional Appears: Non-toxic, No Acute Distress - Head Exam Head Exam: NORMAL INSPECTION - ENT Exam ENT Exam: Mucous Membranes Moist - Neck Exam Neck Exam: absent: Meningismus - Respiratory Exam Respiratory Exam: Decreased Breath Sounds - Cardiovascular Exam Cardiovascular Exam: +S1, +S2 - GI/Abdominal Exam GI & Abdominal Exam: Soft. absent: Tenderness Assessment and Plan - Assessment and Plan (Free Text) Plan: Assessment Sepsis due to acute cholangitis with associated Enterococcus avium and E. coli bacteremia, and acute pancreatitis S/P ERCP with sphinceterotomy, extraction of biliary stones POD #3 HTN CAD peripheral vascular disease cataracts chronic CHF Plan Antibiotics options are limited due to the patient's allergy profile - continue Zyvox, Azactam and Flagyl pending final identification and sensitivities of the gram positive cocci in the bile fluid; blood cx is showing E. coli and Enterococcus avium repeat blood cx taken from yesterday are negative; 2D echo does not show vegetations will continue to monitor clinically
--- NOTE | 2017-04-15 15:35 | PN ---
DATE: 04/15/2017 LOCATION: The patient is in room 364, bed 2. REASON FOR CONSULTATION: Followup with hypertension, stone in common bile duct. SUBJECTIVE: The patient is sitting in chair without any cardiac symptoms. No chest pain, shortness of breath or palpitations. PHYSICAL EXAMINATION: VITAL SIGNS: Blood pressure 178/87, earlier blood pressure 156/78, respirations 20, pulse 76, and temperature 97.8. HEENT: Head is normocephalic. Eyes, pupils are normal. Conjunctivae slightly pale. NECK: JVP low. Carotids are equal. Thorax; AP diameter is normal. LUNGS: Clear. CARDIOVASCULAR: S1 and S2. ABDOMEN: Soft. Bowel sounds normal. EXTREMITIES: No clubbing, no cyanosis. LABORATORY DATA: WBC 8.5, hemoglobin 11.3, hematocrit 35.1, and platelets 136. Sodium 137, potassium 3.6, BUN 6, and creatinine 0.7, phosphorus 2.3, magnesium 1.3. AST 38, ALT 48, alkaline phosphatase 145, total protein 5.8, and albumin 2.8. DIAGNOSES: Hypertension, status post cardiac catheterization in 2004 and 2013, nonobstructive coronary artery disease, permanent pacemaker in March 2016, paroxysmal atrial fibrillation, hypothyroidism, history of alcohol abuse, stone in common bile duct, ascending cholangitis, pancreatitis and hypomagnesemia. PLAN: The patient's blood pressure is still elevated. We will increase Lopressor to 50 mg b.i.d. Before, the patient was getting 25 mg b.i.d. We will also added lisinopril 10 mg p.o. daily starting today. I will monitor blood pressure. We will also give magnesium therapy and repeat labs in the morning. The patient has echocardiogram on 04/14/2017, which showed normal LV size, borderline concentric LV hypertrophy, LV ejection fraction 55% normal, trace to mild aortic regurgitation, aortic sclerosis versus mild aortic stenosis, mild mitral regurgitation, mild tricuspid regurgitation, RVSP 40 mmHg, no vegetation seen. We will continue to follow with you. Javier Kirk MD
--- NOTE | 2017-04-16 00:09 | CP.PCM.PN ---
Subjective - Date & Time of Evaluation Date of Evaluation: 04/16/17 Time of Evaluation: 00:08 - Subjective Subjective: S: Patient was seen because she had requested a sleeping pill. Has no other complaints now. Received benadryl night before for same. Medical record was reviewed. O:VSS. Alert, awake, not in distress. LUNGS: Normal breathing pattern. A: Adjustment insomnia. P:Benadryl 25 mg PO now. Objective - Vital Signs/Intake and Output Vital Signs (last 24 hours): Temp Pulse Resp BP Pulse Ox 98.9 F 77 20 169/85 H 98 04/15/17 16:41 04/15/17 16:41 04/15/17 16:41 04/15/17 16:41 04/15/17 16:41 Intake and Output: 04/15/17 04/16/17 18:59 06:59 Intake Total 840 300 Balance 840 300 - Medications Medications: Current Medications Clonidine HCl (Catapres) 0.1 mg PO Q6H PRN PRN Reason: Systolic Blood Pressure Aztreonam (Azactam 1 Gm) 100 mls @ 100 mls/hr IVPB Q8 JACKY PRN Reason: Protocol Stop: 04/19/17 22:31 Last Admin: 04/15/17 21:04 Dose: 100 mls/hr Linezolid (Zyvox 600mg/300ml D5w) 600 mg in 300 mls @ 200 mls/hr IVPB Q12 JACKY PRN Reason: Protocol Stop: 04/19/17 22:33 Last Admin: 04/15/17 21:04 Dose: 200 mls/hr Lisinopril (Zestril) 10 mg PO DAILY [facility] Last Admin: 04/15/17 14:14 Dose: 10 mg Metoprolol Tartrate (Lopressor) 50 mg PO BID [facility] Last Admin: 04/15/17 17:02 Dose: 50 mg Metronidazole (Flagyl) 500 mg PO Q8 [facility] Stop: 04/19/17 22:32 Last Admin: 04/15/17 21:04 Dose: 500 mg Ondansetron HCl (Zofran Inj) 8 mg IM Q6 PRN PRN Reason: Nausea/Vomiting Ursodiol (Actigall) 300 mg PO BID [facility] Last Admin: 04/15/17 17:02 Dose: 300 mg - Labs Labs: 04/15/17 05:50 04/15/17 05:50 PT 12.7 Seconds (9.9-11.8) H 04/12/17 05:15 INR 1.18 (0.93-1.08) H 04/12/17 05:15 APTT 28.5 Seconds (23.7-30.8) 04/12/17 05:15
[2017-04-16 00:37] VITALS: TEMP 98.1
[2017-04-16] MEDS: Aztreonam 1 Gm in NS 100mL 100 ML IVPB SCH (06:20)
--- NOTE | 2017-04-16 06:48 | CP.PCM.PCO ---
Physician Communication Note - Physician Communication Note Physician Communication Note: Plan oralAB/Interval ERCP-Spyglass in 3+weeks
[2017-04-16 06:51] LABS: BASO # 0.03 K/mm3 (0.0-2.0); BASO % 0.3 % (0.0-3.0); EOS # 0.4 (0.0-0.7); GRAN # 5.49 (1.4-6.5); GRAN % 58.9 % (50.0-68.0); HEMATOCRIT 32.5 % (36.0-48.0); LYMPH # 2.2 (1.2-3.4); LYMPH % 23.2 % (22.0-35.0); MEAN CORPUSCULAR HEMOGLOBIN 27.1 pg (25.0-35.0); MEAN CORPUSCULAR HGB CONC 32.3 g/dl (31.0-37.0); MEAN PLATELET VOLUME 10.3 fl (7.0-11.0); MONO # 1.3 (0.1-0.6); MONO % 13.6 % (1.0-6.0); RED CELL DISTRIBUTION WIDTH 13.9 % (11.5-14.5); WHITE BLOOD COUNT 9.3 10^3/ul (4.5-11.0)
[2017-04-16 07:09] LABS: BLOOD UREA NITROGEN 5 mg/dL (7-21); CALCIUM 8.4 mg/dL (8.4-10.5); CARBON DIOXIDE 28 mmol/L (21-33); CHLORIDE 101 mmol/L (98-107); GFR AFRICAN-AMERICAN > 60; GLUCOSE,RANDOM 90 mg/dL (70-110); MAGNESIUM 1.6 mg/dL (1.7-2.2); PHOSPHOROUS 2.1 mg/dL (2.5-4.5); POTASSIUM 3.3 mmol/L (3.6-5.0); SODIUM 135 mmol/L (132-148)
[2017-04-16 07:26] VITALS: O2SAT 98
[2017-04-16 08:40] LABS: BILIRUBIN,DIRECT 0.8 mg/dL (0.0-0.4); BILIRUBIN,TOTAL 1.1 mg/dL (0.2-1.3); TOTAL PROTEIN 5.2 g/dL (5.8-8.3)
--- NOTE | 2017-04-16 08:51 | RAD ---
PROCEDURE: ERCP HISTORY: ? CBD OBST COMPARISON: TECHNIQUE: Intraoperative fluoroscopy was provided to the referring physician to perform any ERCP examination. 242.5 seconds of fluoroscopy time was utilized in total with total radiation dose of 72.31 mGy. FINDINGS: See operative report please. IMPRESSION: See op report please.
[2017-04-16 09:03] VITALS: BP 166/82; PULSE 84
--- NOTE | 2017-04-16 10:46 | CP.PCM.PN ---
Subjective - Date & Time of Evaluation Date of Evaluation: 04/16/17 Time of Evaluation: 08:45 - Subjective Subjective: Seen and examined at the bedside this morning, the chart was reviewed. Patient denies shortness of breath, nausea, vomiting, right upper quadrant abdominal pain is better. No reports of any fever or chills. Tolerating oral intake. Reports having semi-loose BMs this morning, no reports of bleeding. Her bile aspirate came back and it's positive for Enterococcus Avium. Objective - Vital Signs/Intake and Output Vital Signs (last 24 hours): Temp Pulse Resp BP Pulse Ox 98.1 F 84 20 166/82 H 98 04/16/17 08:00 04/16/17 09:01 04/16/17 08:00 04/16/17 09:01 04/16/17 08:00 Intake and Output: 04/16/17 04/16/17 06:59 18:59 Intake Total 300 200 Balance 300 200 - Medications Medications: Current Medications Clonidine HCl (Catapres) 0.1 mg PO Q6H PRN PRN Reason: Systolic Blood Pressure Diphenhydramine HCl (Benadryl) 50 mg PO HS PRN PRN Reason: Insomnia Aztreonam (Azactam 1 Gm) 100 mls @ 100 mls/hr IVPB Q8 JACKY PRN Reason: Protocol Stop: 04/19/17 22:31 Last Admin: 04/16/17 06:20 Dose: 100 mls/hr Linezolid (Zyvox) 600 mg PO BID JACKY PRN Reason: Protocol Stop: 04/23/17 10:01 Last Admin: 04/16/17 09:05 Dose: 600 mg Lisinopril (Zestril) 10 mg PO DAILY [facility] Last Admin: 04/16/17 09:00 Dose: 10 mg Metoprolol Tartrate (Lopressor) 50 mg PO BID [facility] Last Admin: 04/16/17 09:01 Dose: 50 mg Metronidazole (Flagyl) 500 mg PO Q8 [facility] Stop: 04/19/17 22:32 Last Admin: 04/16/17 06:20 Dose: 500 mg Ondansetron HCl (Zofran Inj) 8 mg IM Q6 PRN PRN Reason: Nausea/Vomiting Ursodiol (Actigall) 300 mg PO BID [facility] Last Admin: 04/16/17 09:00 Dose: 300 mg - Labs Labs: 04/16/17 06:00 04/16/17 06:00 PT 12.7 Seconds (9.9-11.8) H 04/12/17 05:15 INR 1.18 (0.93-1.08) H 04/12/17 05:15 APTT 28.5 Seconds (23.7-30.8) 04/12/17 05:15 - Constitutional Appears: No Acute Distress - Head Exam Head Exam: NORMOCEPHALIC - Eye Exam Eye Exam: Normal appearance. absent: Scleral icterus - ENT Exam ENT Exam: Mucous Membranes Moist - Neck Exam Neck Exam: Normal Inspection - Respiratory Exam Respiratory Exam: Decreased Breath Sounds (right), NORMAL BREATHING PATTERN. absent: Rales, Wheezes, Respiratory Distress - Cardiovascular Exam Cardiovascular Exam: +S1, +S2 - GI/Abdominal Exam GI & Abdominal Exam: Soft, Normal Bowel Sounds. absent: Distended, Guarding, Tenderness (1), Rebound - Extremities Exam Extremities Exam: Normal Capillary Refill. absent: Calf Tenderness, Pedal Edema - Neurological Exam Neurological Exam: Alert, Awake, Oriented x3 - Skin Skin Exam: Dry (I), Warm Assessment and Plan - Assessment and Plan (Free Text) Assessment: Assessment: Status post EGD/ERCP: duodenal ulcers, gastritis, status post sphincterotomy with biliary sweep and status post stent placement Bile aspirate, positive for Enterococcus Avium Pleural effusion History of cholecystectomy Elevated liver enzymes,trending down History of coronary artery disease H/O Pacemaker placement Hypertension Plan: Continue to trend liver enzymes, which is improving Continue antibiotics as per ID, started on Zyvox heart healthy diet Patient will need repeat ERCP with spyglass 3-4 WEEKS continue actigall Continue PPI and DVT prophylaxis stool Cdiff, if have another semi loose BM plan for TCU Seen and discussed with Dr. Godfrey who is covering Dr. Cancino
--- NOTE | 2017-04-16 10:52 | PN ---
DATE: SUBJECTIVE: The patient is in bed and in no acute distress. PHYSICAL EXAMINATION VITAL SIGNS: Temperature is 98, blood pressure is 130/60, and respiratory rate is 16. HEENT: Unremarkable. NECK: Supple LUNGS: Decreased breath sounds. HEART: Normal S1 and S2. ABDOMEN: Soft and nontender. No organomegaly. No rebound. No guarding. No masses. LABORATORY DATA: Examination reveals a white count of 9.3 and hemoglobin of 10. Chemistry reveals BUN of 5 and creatinine of 0.6. Urinalysis is noted. Microbiology reveals blood cultures are positive for E. coli and Enterococcus avium. The E. coli is sensitive. Enterococcus is sensitive to ampicillin. Both bottles repeat blood cultures are negative. Bile culture is growing Gram-positive cocci. The urine culture is growing E. coli. Dr. Cardenas' note from today is reviewed. Dr. Salmon's note is reviewed. ASSESSMENT AND PLAN: An 82-year-old female with sepsis due to acute cholangitis associated with Enterococcus avium and Escherichia coli bacteremia with acute pancreatitis status post endoscopic retrograde cholangiopancreatography with sphincterotomy, extraction of biliary stone post procedure day number 4 in a patient with coronary artery disease, peripheral vascular disease, hypertension, and heart failure and cataracts. The patient who has multiple allergies, antibiotics options are limited to the patient with that remote allergy profile on Zyvox, Azactam and Flagyl and repeat blood cultures are negative. Echo is negative for endocarditis and no vegetations. The patient is on p.o. Flagyl, we will change to Zyvox to p.o. Limited options with this patient WHO IS ALLERGIC TO QUINOLONES, PENICILLIN, AND SULFA. Repeat cultures from the 04/14/2017 are negative. We will need at least 10 to 14 days of p.o. Zyvox. We will continue the Azactam and discuss the case with you. Sebastian Rosas MD
[2017-04-16] MEDS ORDERED: Magnesium Sulfate 2 GM in Sodium Chloride 0.9% 100 ML IVPB ONE (11:38)
[2017-04-16] MEDS ORDERED: Potassium Chloride 20 mEq ER Tab PO ONE ×2 (11:39)
--- NOTE | 2017-04-16 13:01 | PN ---
DATE: 04/16/2017 REASON FOR CONSULTATION: Followup hypertension, stone in common bile duct, status post pacemaker, and nonobstructive coronary artery disease. SUBJECTIVE: The patient denies any chest pain or shortness of breath. Friend is at the bedside. PHYSICAL EXAMINATION: GENERAL: Not in apparent distress, sitting at the bedside, and wanted to go home. VITAL SIGNS: As follows; temperature afebrile, heart rate 84, and blood pressure 139/66. HEENT: PERRLA. Extraocular muscles intact. NECK: Supple. No carotid bruit or thyromegaly. CHEST: Clear to auscultation. HEART: S1 and S2 regular. ABDOMEN: Soft. EXTREMITIES: Clubbing and cyanosis negative. LABORATORY DATA: Blood workup as follows; WBC 9.3, hemoglobin 10.4, hematocrit 32.5, and platelet count 131. Chemistries show sodium 135, potassium 3.3, chloride 101, carbon dioxide 28, anion gap 9, BUN 5, and creatinine 0.6. Total protein 5.2, albumin 2.6, and albumin-globulin ratio 1. Echo shows no evidence of endocarditis. IMPRESSION: Protein-calorie malnutrition, biliary colic, ascending cholangitis, uncontrolled hypertension, hypokalemia, nonobstructive coronary artery disease, status post cardiac catheterization twice in 2004 and 2013, nonobstructive coronary artery disease, status post pacemaker in 03/2016, history of paroxysmal atrial fibrillation, hypothyroidism, and history of alcohol abuse in the past. RECOMMENDATIONS: Continue antibiotics, supplement electrolytes, and aggressively control of blood pressure. We will supplement potassium another dose at 5 p.m. We will give 40 now and 40 at p.m. and supplement IV magnesium 2 g stat. We will follow with you. Thank you Dr. Garrido for providing me the opportunity in taking care of [facility]. Javier Swanson MD
--- NOTE | 2017-04-19 20:04 | CP.PCM.PN ---
Subjective - Date & Time of Evaluation Date of Evaluation: 04/14/17 Time of Evaluation: 10:00 - Subjective Subjective: Complaining of shortness of breath. No chest pain. Pancreatic enzymes declining. S/P ERCP, stone removal from common bile duct. Objective - Vital Signs/Intake and Output Vital Signs (last 24 hours): Temp Pulse Resp BP Pulse Ox 98.1 F 84 20 166/82 H 98 04/16/17 08:00 04/16/17 09:01 04/16/17 08:00 04/16/17 09:01 04/16/17 08:00 - Labs Labs: 04/16/17 06:00 04/16/17 06:00 PT 12.7 Seconds (9.9-11.8) H 04/12/17 05:15 INR 1.18 (0.93-1.08) H 04/12/17 05:15 APTT 28.5 Seconds (23.7-30.8) 04/12/17 05:15 - Constitutional Appears: Non-toxic, Agitated - Head Exam Head Exam: ATRAUMATIC, NORMAL INSPECTION, NORMOCEPHALIC - Eye Exam Pupil Exam: NORMAL ACCOMODATION - Neck Exam Neck Exam: Normal Inspection - Respiratory Exam Respiratory Exam: Clear to Ausculation Bilateral, NORMAL BREATHING PATTERN - Cardiovascular Exam Cardiovascular Exam: Tachycardia, REGULAR RHYTHM, +S1, +S2 - GI/Abdominal Exam GI & Abdominal Exam: Soft, Normal Bowel Sounds - Extremities Exam Extremities Exam: Full ROM, Normal Capillary Refill, Normal Inspection - Back Exam Back Exam: NORMAL INSPECTION - Neurological Exam Neurological Exam: Alert, Awake, Normal Gait, Oriented x3 - Psychiatric Exam Psychiatric exam: Normal Affect - Skin Skin Exam: Normal Color, Warm Assessment and Plan - Assessment and Plan (Free Text) Assessment: 1. Acute pancreatitis 2. Gall stones in CBD 3. acute respiratory distress 4. severe iron deficiency anemia 5. Sepsis 6. h/o colon cancer Plan : CT chest with PE protocol to r/o PE, ordered stat. reviewed the diaz. No evidence of PE. On IV antibiotics as per ID. Blood gm negative sepsis- ecoli, enterococus. IV iron for severe iron deficiency. DVT prophylaxis with heparin 5000 BID.
--- NOTE | 2017-04-19 20:09 | CP.PCM.PN ---
Subjective - Date & Time of Evaluation Date of Evaluation: 04/15/17 Time of Evaluation: 10:00 - Subjective Subjective: Comfortable in bed, no acute distress. No fever. SOB improved. Abdominal pain improved . Tolerating PO liquids. Objective - Vital Signs/Intake and Output Vital Signs (last 24 hours): Temp Pulse Resp BP Pulse Ox 98.1 F 84 20 166/82 H 98 04/16/17 08:00 04/16/17 09:01 04/16/17 08:00 04/16/17 09:01 04/16/17 08:00 - Labs Labs: 04/16/17 06:00 04/16/17 06:00 PT 12.7 Seconds (9.9-11.8) H 04/12/17 05:15 INR 1.18 (0.93-1.08) H 04/12/17 05:15 APTT 28.5 Seconds (23.7-30.8) 04/12/17 05:15 - Constitutional Appears: Non-toxic - Head Exam Head Exam: ATRAUMATIC, NORMAL INSPECTION, NORMOCEPHALIC - Eye Exam Eye Exam: Normal appearance Pupil Exam: NORMAL ACCOMODATION - ENT Exam ENT Exam: Mucous Membranes Moist - Neck Exam Neck Exam: Normal Inspection - Respiratory Exam Respiratory Exam: Clear to Ausculation Bilateral, NORMAL BREATHING PATTERN - Cardiovascular Exam Cardiovascular Exam: REGULAR RHYTHM, +S1, +S2 - Back Exam Back Exam: NORMAL INSPECTION - Neurological Exam Neurological Exam: Alert, Awake, CN II-XII Intact, Oriented x3 - Psychiatric Exam Psychiatric exam: Normal Affect - Skin Skin Exam: Normal Color, Warm Assessment and Plan - Assessment and Plan (Free Text) Assessment: 1. Acute pancreatitis 2. Gall stones in CBD 3. acute respiratory distress 4. severe iron deficiency anemia 5. Sepsis 6. h/o colon cancer Plan : Pancreatitis improving. Accepting orally. Pancreatic enzymes declining. CT chest No evidence of PE. On IV antibiotics as per ID. Blood gm negative sepsis- ecoli, enterococus. IV iron for severe iron deficiency. DVT prophylaxis with heparin 5000 BID. H/O colon cancer- no evidence of recurrence. bedside PT.
--- NOTE | 2017-04-19 20:16 | CP.PCM.DIS ---
Provider - Provider Date of Admission: 04/10/17 21:29 Attending physician: Romulo Garrido MD Primary care physician: Romulo Garrido MD Time Spent in preparation of Discharge (in minutes): 60 Hospital Course - Lab Results Lab Results: Micro Results 04/14/17 06:15 Blood Blood Culture - Final NO GROWTH AFTER 5 DAYS 04/14/17 06:15 Blood Gram Stain - Final TEST NOT PERFORMED 04/14/17 06:00 Blood Blood Culture - Final NO GROWTH AFTER 5 DAYS 04/14/17 06:00 Blood Gram Stain - Final TEST NOT PERFORMED 04/12/17 18:30 Bile Gram Stain - Final 04/12/17 18:30 Bile Body Fluid Culture - Final Enterococcus Avium Most Recent Lab Values WBC 9.3 10^3/ul (4.5-11.0) 04/16/17 06:00 RBC 3.87 10^6/uL (3.5-6.1) 04/16/17 06:00 Hgb 10.5 g/dL (12.0-16.0) L 04/16/17 06:00 Hct 32.5 % (36.0-48.0) L 04/16/17 06:00 MCV 84.0 fl (80.0-105.0) 04/16/17 06:00 MCH 27.1 pg (25.0-35.0) 04/16/17 06:00 MCHC 32.3 g/dl (31.0-37.0) 04/16/17 06:00 RDW 13.9 % (11.5-14.5) 04/16/17 06:00 Plt Count 131 10^3/uL (120.0-450.0) 04/16/17 06:00 MPV 10.3 fl (7.0-11.0) 04/16/17 06:00 Gran % 58.9 % (50.0-68.0) 04/16/17 06:00 Lymph % (Auto) 23.2 % (22.0-35.0) 04/16/17 06:00 [place] % (Auto) 13.6 % (1.0-6.0) H 04/16/17 06:00 Eos % (Auto) 4.0 % (1.5-5.0) 04/16/17 06:00 Baso % (Auto) 0.3 % (0.0-3.0) 04/16/17 06:00 Gran # 5.49 (1.4-6.5) 04/16/17 06:00 Lymph # 2.2 (1.2-3.4) 04/16/17 06:00 [place] # 1.3 (0.1-0.6) H 04/16/17 06:00 Eos # 0.4 (0.0-0.7) 04/16/17 06:00 Baso # 0.03 K/mm3 (0.0-2.0) 04/16/17 06:00 Neutrophils % (Manual) 90 % (50.0-70.0) H 04/10/17 18:15 Band Neutrophils % 5 % (0-2) H 04/10/17 18:15 Lymphocytes % (Manual) 3 % (22.0-35.0) L 04/10/17 18:15 Monocytes % (Manual) 2 % (1.0-6.0) 04/10/17 18:15 Platelet Evaluation Normal (NORMAL) 04/10/17 18:15 Anisocytosis (manual) Slight 04/10/17 18:15 PT 12.7 Seconds (9.9-11.8) H 04/12/17 05:15 INR 1.18 (0.93-1.08) H 04/12/17 05:15 APTT 28.5 Seconds (23.7-30.8) 04/12/17 05:15 pO2 96 mm/Hg (30-55) H 04/10/17 22:00 VBG pH 7.36 (7.32-7.43) 04/10/17 22:00 VBG pCO2 42.0 (40-60) 04/10/17 22:00 VBG HCO3 23.7 mmol/l (21-28) 04/10/17 22:00 VBG Total CO2 25.0 mmol.L (22-28) 04/10/17 22:00 VBG O2 Sat (Calc) 99.8 % (40-65) H 04/10/17 22:00 VBG Base Excess -1.8 mmol/L (0.0-2.0) L 04/10/17 22:00 VBG Potassium 3.5 mmol/L (3.6-5.2) L 04/10/17 22:00 Sodium 134.0 mmol/L (132-148) 04/10/17 22:00 Chloride 104.0 mmol/L (98-107) 04/10/17 22:00 Glucose 104 mg/dl (65-105) 04/10/17 22:00 Lactate 1.3 mmol/L (0.7-2.1) 04/10/17 22:00 FiO2 21.0 % 04/10/17 22:00 Sodium 135 mmol/L (132-148) 04/16/17 06:00 Potassium 3.3 mmol/L (3.6-5.0) L 04/16/17 06:00 Chloride 101 mmol/L (98-107) 04/16/17 06:00 Carbon Dioxide 28 mmol/L (21-33) 04/16/17 06:00 Anion Gap 9 (10-20) L 04/16/17 06:00 BUN 5 mg/dL (7-21) L 04/16/17 06:00 Creatinine 0.6 mg/dL (0.5-1.4) 04/16/17 06:00 Est GFR ( Amer) > 60 04/16/17 06:00 Est GFR (Non-Af Amer) > 60 04/16/17 06:00 Random Glucose 90 mg/dL (70-110) 04/16/17 06:00 Calcium 8.4 mg/dL (8.4-10.5) 04/16/17 06:00 Phosphorus 2.1 mg/dL (2.5-4.5) L 04/16/17 06:00 Magnesium 1.6 mg/dL (1.7-2.2) L 04/16/17 06:00 Iron 15 ug/dL (45-180) L 04/12/17 10:30 TIBC 236 ug/dL (265-497) L 04/12/17 10:30 % Saturation 7 % (20-55) L 04/12/17 10:30 Transferrin 164.53 mg/dL (206-381) L 04/12/17 10:30 Ferritin 289.0 ng/mL 04/12/17 10:30 Total Bilirubin 1.1 mg/dL (0.2-1.3) 04/16/17 07:48 Direct Bilirubin 0.8 mg/dL (0.0-0.4) H 04/16/17 07:48 AST 38 U/L (14-36) H 04/16/17 07:48 ALT 49 U/L (7-56) 04/16/17 07:48 Alkaline Phosphatase 127 U/L (38-126) H 04/16/17 07:48 Lactate Dehydrogenase 475 U/L (333-699) 04/10/17 18:15 Total Creatine Kinase 21 U/L (35-230) L 04/10/17 18:15 Troponin I 0.07 ng/mL 04/10/17 18:15 Total Protein 5.2 g/dL (5.8-8.3) L 04/16/17 07:48 Albumin 2.6 g/dL (3.0-4.8) L 04/16/17 07:48 Globulin 2.6 gm/dL 04/16/17 07:48 Albumin/Globulin Ratio 1.0 (1.1-1.8) L 04/16/17 07:48 Amylase 60 U/L (35-125) 04/13/17 05:10 Lipase 158 U/L (23-300) 04/13/17 05:30 Vitamin B12 468 pg/mL (239-931) 04/12/17 10:30 Folate 15.4 ng/mL 04/12/17 10:30 Venous Blood Potassium 3.5 mmol/L (3.6-5.2) L 04/10/17 22:00 Urine Color Yellow (YELLOW) 04/10/17 19:00 Urine Appearance Clear (CLEAR) 04/10/17 19:00 Urine pH 6.0 (4.7-8.0) 04/10/17 19:00 Ur Specific [place] 1.020 (1.005-1.035) 04/10/17 19:00 Urine Protein 30 mg/dL (<30 mg/dL) H 04/10/17 19:00 Urine Glucose (UA) Negative mg/dL (NEGATIVE) 04/10/17 19:00 Urine Ketones 15 mg/dL (NEGATIVE) H 04/10/17 19:00 Urine Blood Small (NEGATIVE) H 04/10/17 19:00 Urine Nitrate Positive (NEGATIVE) H 04/10/17 19:00 Urine Bilirubin Moderate (NEGATIVE) H 04/10/17 19:00 Urine Urobilinogen 2.0 E.U./dL (<1 E.U./dL) H 04/10/17 19:00 Ur Leukocyte Esterase Small [place]/uL (NEGATIVE) H 04/10/17 19:00 Urine RBC 5 - 10 /hpf (0-2) 04/10/17 19:00 Urine WBC 10 - 15 /hpf (0-6) 04/10/17 19:00 Ur Epithelial Cells 6 - 8 /hpf (0-5) 04/10/17 19:00 Amorphous Sediment Small 04/10/17 19:00 Urine Bacteria Many (NEG) 04/10/17 19:00 Urine Other Uyeast 04/10/17 19:00 - Hospital Course Hospital Course: 1. Acute pancreatitis 2. Gall stones in CBD 3. acute respiratory distress 4. severe iron deficiency anemia 5. Sepsis- enterococus, ecoli 6. h/o colon cancer Hospital course: admitted with acute pancreatitis. Had sepsis- ecoli, enterococus. sever iron deficiency anemia treated with IV iron. On IV antibiotics. Pancreatitits resolved during hospitalization. Underwent ERCP, stone removal by GI. being transferred to TCU for IV antibiotics. Discharge Exam - Head Exam Head Exam: ATRAUMATIC, NORMAL INSPECTION, NORMOCEPHALIC - Eye Exam Eye Exam: Normal appearance Pupil Exam: NORMAL ACCOMODATION - ENT Exam ENT Exam: Normal Oropharynx - Neck Exam Neck exam: Normal Inspection - Respiratory Exam Respiratory Exam: Clear to PA & Lateral, NORMAL BREATHING PATTERN, UNREMARKABLE - Cardiovascular Exam Cardiovascular Exam: REGULAR RHYTHM, +S1, +S2 - GI/Abdominal Exam GI & Abdominal Exam: Normal Bowel Sounds, Unremarkable - Extremities Exam Extremities exam: normal inspection - Back Exam Back exam: NORMAL INSPECTION - Neurological Exam Neurological exam: Alert, CN II-XII Intact, Normal Gait, Oriented x3 - Psychiatric Exam Psychiatric exam: Normal Affect - Skin Skin Exam: Normal Color, Warm Discharge Plan - Follow Up Plan Condition: GOOD Disposition: REHAB FACILITY/REHAB UNIT Patient education suggested?: Yes Instructions: Pancreatitis (DC) Additional Instructions: You are discharge to go to [facility]. Please continue medical care and physical therapy. Continue all meds. Referrals: Romulo Garrido MD [Primary Care Provider] - Cecelia Cancino MD [Medical Doctor] - Javier Kirk MD [Staff Provider] -
== END 2017-04-16 12:18 | DRG 871 ==
LOC: ED 18:01 → ERH 21:29 → 2RNO 22:39 → 3RNO 04-13 12:35
PROVIDERS: ADMIT Internal Medicine; ATTEND Internal Medicine
PROC: 0FC98ZZ Extirpation of Matter from Common Bile Duct, Via Natural or Artificial Opening Endoscopic (ICD-10-PCS; principal; 2017-04-12 14:00)
PROC: 0F798DZ Dilation of Common Bile Duct with Intraluminal Device, Via Natural or Artificial Opening Endoscopic (ICD-10-PCS; 2017-04-12 14:00)
PROC: 0DJ08ZZ Inspection of Upper Intestinal Tract, Via Natural or Artificial Opening Endoscopic (ICD-10-PCS; 2017-04-12 14:00)
DX: A41.51 Sepsis due to Escherichia coli [E. coli] (principal); K85.10 Biliary acute pancreatitis without necrosis or infection; E44.0 Moderate protein-calorie malnutrition; K25.9 Gastric ulcer, unspecified as acute or chronic, without hemorrhage or perforation; K26.9 Duodenal ulcer, unspecified as acute or chronic, without hemorrhage or perforation; E83.42 Hypomagnesemia; I13.0 Hypertensive heart and chronic kidney disease with heart failure and stage 1 through stage 4 chronic kidney disease, or unspecified chronic kidney disease; I48.0 Paroxysmal atrial fibrillation; I50.9 Heart failure, unspecified; N39.0 Urinary tract infection, site not specified; K80.30 Calculus of bile duct with cholangitis, unspecified, without obstruction; E83.39 Other disorders of phosphorus metabolism; K20.9 Esophagitis, unspecified; E03.9 Hypothyroidism, unspecified; E87.6 Hypokalemia; D50.9 Iron deficiency anemia, unspecified; A41.81 Sepsis due to Enterococcus; Z87.898 Personal history of other specified conditions; H26.9 Unspecified cataract; I25.10 Atherosclerotic heart disease of native coronary artery without angina pectoris; I73.9 Peripheral vascular disease, unspecified; K29.70 Gastritis, unspecified, without bleeding; K80.70 Calculus of gallbladder and bile duct without cholecystitis without obstruction; N18.9 Chronic kidney disease, unspecified; Z79.899 Other long term (current) drug therapy; Z85.038 Personal history of other malignant neoplasm of large intestine; Z86.73 Personal history of transient ischemic attack (TIA), and cerebral infarction without residual deficits; Z87.11 Personal history of peptic ulcer disease; Z87.442 Personal history of urinary calculi; Z87.891 Personal history of nicotine dependence; Z88.0 Allergy status to penicillin; Z88.2 Allergy status to sulfonamides; Z90.49 Acquired absence of other specified parts of digestive tract; Z95.0 Presence of cardiac pacemaker; Z88.1 Allergy status to other antibiotic agents; R40.2412 Glasgow coma scale score 13-15, at arrival to emergency department; E80.6 Other disorders of bilirubin metabolism; D72.829 Elevated white blood cell count, unspecified; I08.3 Combined rheumatic disorders of mitral, aortic and tricuspid valves; K29.50 Unspecified chronic gastritis without bleeding

== ENCOUNTER 2017-04-16 12:23 | Inpatient (IN) | payer MEDICARE, OTHER ==
[2017-04-16 13:06] VITALS: BMI 26.2
[2017-04-16] MEDS ORDERED: Pneumococcal 23-Valent Vaccine IM ONE (14:15)
[2017-04-16] MEDS: Aztreonam 1 Gm in NS 100mL 100 ML IVPB SCH ×2 (15:00→21:54)
[2017-04-17] MEDS ORDERED: Pantoprazole 40 mg EC Tab PO STA (04:48)
--- NOTE | 2017-04-17 04:48 | CP.PCM.PN ---
Subjective - Date & Time of Evaluation Date of Evaluation: 04/17/17 Time of Evaluation: 04:47 - Subjective Subjective: Patient was seen at bedside for his complaint of heart burn.128/70 82 20 96 % on RA. Denies chest pain,sob,nausea, sweating,palpitation. Medical recorfd was reviewed. This 82 year old male was admitted with nausea ,vomiting ,fever,abdominal pain, acute pancreatitis. Has PMH of HTN,CHF,PVD, PPM, CVA, CKD, kidney stones, colon cancer ,cataract surgery. Objective - Vital Signs/Intake and Output Vital Signs (last 24 hours): Temp Pulse Resp BP Pulse Ox 98 F 75 14 173/85 H 98 04/16/17 16:32 04/16/17 17:44 04/16/17 16:32 04/16/17 17:44 04/16/17 16:32 - Medications Medications: Current Medications Clonidine HCl (Catapres) 0.1 mg PO Q6H PRN; Protocol PRN Reason: SBP > 160 or DBP > 100 Diphenhydramine HCl (Benadryl) 50 mg PO HS PRN; Protocol PRN Reason: Insomnia Last Admin: 04/16/17 22:04 Dose: 50 mg Linezolid (Zyvox) 600 mg PO BID JACKY PRN Reason: Protocol Last Admin: 04/16/17 17:45 Dose: 600 mg Lisinopril (Zestril) 10 mg PO DAILY JACKY PRN Reason: Protocol Metoprolol Tartrate (Lopressor) 50 mg PO 0800,1800 JACKY PRN Reason: Protocol Last Admin: 04/16/17 17:44 Dose: 50 mg Metronidazole (Flagyl) 500 mg PO Q8 JACKY PRN Reason: Protocol Last Admin: 04/16/17 21:56 Dose: 500 mg Ondansetron HCl (Zofran Inj) 4 mg IVP Q6H PRN; Protocol PRN Reason: Nausea/Vomiting Ursodiol (Actigall) 300 mg PO 0800 [facility] PRN Reason: Protocol - Constitutional Appears: Well, No Acute Distress - Head Exam Head Exam: ATRAUMATIC, NORMAL INSPECTION, NORMOCEPHALIC - ENT Exam ENT Exam: Normal External Ear Exam - Neck Exam Neck Exam: Normal Inspection - Respiratory Exam Respiratory Exam: NORMAL BREATHING PATTERN - Cardiovascular Exam Cardiovascular Exam: absent: JVD - GI/Abdominal Exam GI & Abdominal Exam: Normal Bowel Sounds. absent: Distended, Tenderness - Rectal Exam Rectal Exam: Deferred - Exam Additional comments: Deferred. - Extremities Exam Extremities Exam: Normal Inspection - Back Exam Back Exam: NORMAL INSPECTION - Neurological Exam Neurological Exam: Alert, Oriented x3 - Psychiatric Exam Psychiatric exam: Normal Affect, Normal Mood - Skin Skin Exam: Normal Color Assessment and Plan - Assessment and Plan (Free Text) Assessment: Heart burn. HTN. CHF. PVD. CKD. Colon cancer . Plan: Protonix 40 mg PO daily. Protonix 40 mg po stat. Continue present management.
[2017-04-17] MEDS: Pantoprazole 40 mg EC Tab PO SCH (06:19)
[2017-04-17] MEDS: Aztreonam 1 Gm in NS 100mL 100 ML IV SCH (22:13)
--- NOTE | 2017-04-17 23:57 | CON ---
DATE: 04/17/2017 The patient was seen in room 322 today. CHIEF COMPLAINT: Weakness from several days. HISTORY OF PRESENT ILLNESS: This is an 82-year-old female, was seen earlier today with past medical history significant for hypertension, coronary artery disease, congestive heart failure, peripheral vascular disease, cataract. She has multiple allergies including LEVAQUIN, MOXIFLOXACIN, PENICILLIN, VANCOMYCIN AND SULFA, it is unclear what type of allergies. She also has a pacemaker and cholecystectomy in the past who was admitted with cholangitis and pancreatitis. An infectious disease consultation requested. The patient states she is doing much better. No fevers, no chills, no chest pain, no shortness of breath, no cough, no hemoptysis. PAST MEDICAL HISTORY: Significant for hypertension, coronary artery disease, congestive heart failure, peripheral vascular disease and cataract. PAST SURGICAL HISTORY: Significant for pacemaker and cholecystectomy. ALLERGIES: THE PATIENT HAS ALLERGIES TO LEVAQUIN, MOXIFLOXACIN, PENICILLIN, VANCOMYCIN, SULFA AND METHIMAZOLE. PHYSICAL EXAMINATION GENERAL: She is in bed in no acute distress and nontoxic. She appears much better. VITAL SIGNS: Temperature of 98, blood pressure is 167/70, respiratory rate of 18, heart rate is 83. HEENT: Unremarkable. NECK: Supple. LUNGS: Decreased breath sounds. HEART: Normal S1 and S2. ABDOMEN: Soft, nontender. LABORATORY DATA: Reveals white count is down to 9.3, hemoglobin of 10, platelets of 131. Chemistry reveals a BUN of 5, creatinine 0.6. LFTs are improving. Urinalysis is noted. Microbiology reveals that the patient's blood cultures have grown E. coli and Enterococcus avium; and E. coli in the urine and Enterococcus avium in the bile. Repeat blood cultures on the had no growth. ASSESSMENT AND PLAN: This is an 82-year-old female with history of hypertension, coronary artery disease, congestive heart failure, peripheral vascular disease and cataracts. He was admitted with sepsis with acute ascending cholangitis with Enterococcus avium and Escherichia coli bacteremia and acute pancreatitis, status post endoscopic retrograde cholangiopancreatography and sphincterotomy with extraction of a biliary stone postprocedure day #5, currently on Zyvox, Azactam and Flagyl. The cultures are negative on the 30th. He is day #4 of 10 to 14 days of antibiotics. Limited options with so many allergies. Limited options as far as antibiotics are concerned. We will continue the Zyvox, Flagyl and Azactam. We will follow with you. Sebastian Rosas MD
--- NOTE | 2017-04-18 00:16 | PN ---
DATE: 04/17/2017 SUBJECTIVE: The patient has no complaints of any chest pain. No shortness of breath. No headaches. PHYSICAL EXAMINATION: VITAL SIGNS: Temperature is 98.4, pulse is 81, blood pressure is 140/76, and respirations 16. GENERAL: The patient is lying in bed, flat, comfortable. HEENT: No oral lesion. Anicteric sclerae. Moist mucosa. NECK: No JVD, adenopathy, or thyromegaly. CARDIOVASCULAR: S1 and S2, regular. No murmurs, rubs, or gallops. LUNGS: Clear to auscultation bilaterally. No wheeze, rales, or rhonchi. ABDOMEN: Bowel sounds are positive, soft, nontender and nondistended. EXTREMITIES: no cyanosis, clubbing or edema. ASSESSMENT: 1. Sepsis secondary to cholangitis, improved. 2. Status post endoscopic retrograde cholangiopancreatography with sphincterectomy. 3. Nonobstructive coronary artery disease. 4. Pacemaker. 5. Hypothyroidism. 6. Gastritis. 7. Duodenal ulcer. 8. Hypertension. PLAN: The patient is currently on the transitional care unit. She is going to continue aztreonam. She has been followed by infectious disease. The patient is on Ursodiol. She is going to be on clonidine for her hypertension. She is on Protonix daily. She is receiving lisinopril for her hypertension as well as she is on Zyvox. She has been taking heart healthy diet and tolerated. Manjti Ventura MD
[2017-04-18] MEDS: Aztreonam 1 Gm in NS 100mL 100 ML IV SCH ×3 (06:03→21:59)
[2017-04-18] MEDS: Pantoprazole 40 mg EC Tab PO SCH (06:03)
--- NOTE | 2017-04-18 11:33 | PN ---
DATE: 04/18/2017 SUBJECTIVE: The patient is seen in room #322 earlier this morning. No fevers and no chills. PHYSICAL EXAMINATION VITAL SIGNS: On exam, temperature is 98, blood pressure is 160/70 and respiratory rate of 16. HEENT: Unremarkable. NECK: Supple. LUNGS: Decreased breath sounds. HEART EXAM: Normal S1 and S2. ABDOMINAL EXAMINATION: Soft. LABORATORY EXAMINATION: Reviewed. ASSESSMENT AND PLAN: An 82-year-old female with a history of hypertension, coronary artery disease, congestive heart failure, peripheral vascular disease and cataract, admitted with sepsis with acute ascending cholangitis, Enterococcus avium, Escherichia coli bacteremia and acute pancreatitis, status post endoscopic retrograde cholangiopancreatography and sphincterotomy, extraction of the biliary stone, postprocedure day #6. Currently on Zyvox, Azactam and Flagyl, day #5 of 10 to 14 days of antibiotics. We will follow with you. Sebastian Rosas MD
--- NOTE | 2017-04-18 13:11 | PN ---
This visit is for Dr. Cancino. SUBJECTIVE: The patient is sitting up in chair, in TRCU. She denies any abdominal pain, nausea, vomiting, fevers or chills. PHYSICAL EXAMINATION: VITAL SIGNS: Reveal temperature of 98.2, blood pressure 171/96, hear rate of 87. ABDOMEN: Soft. Nontender. LABORATORY DATA: There are no new laboratory data. IMPRESSION: An 82-year-old female admitted to the hospital with sepsis, ascending cholangitis, positive blood cultures for Enterococcus as well as Enterococcus in biliary aspirate, status post endoscopic retrograde cholangiopancreatography and stent placement. RECOMMENDATION: The patient is stable in TCU. She is currently on aztreonam and Zyvox. She will need stent extraction in several weeks with Dr. Cancino. Marvin Godfrey MD
[2017-04-19] MEDS: Aztreonam 1 Gm in NS 100mL 100 ML IV SCH ×3 (06:24→21:58)
[2017-04-19] MEDS: Pantoprazole 40 mg EC Tab PO SCH (06:25)
--- NOTE | 2017-04-19 14:41 | CON ---
DATE: 04/19/2017 CONSULT SERVICE: Cardiology. REASON FOR CONSULTATION: Followup history of nonobstructive coronary artery disease, status post pacemaker, admitted with Gram-negative sepsis, rule out endocarditis, ascending cholangitis, cardiac evaluation, and continuity of care in transitional care unit. BRIEF CLINICAL HISTORY: This is an 82-year-old female with past medical history significant for nonobstructive coronary artery disease, status post cardiac catheterization twice in 2004 and 2013, history of permanent pacemaker in 03/2016, history of paroxysmal atrial fibrillation, history of psychogenic polydipsia, hypothyroidism, history of alcohol abuse, admitted with multiple stones in common bile duct, ascending cholangitis, pancreatitis, Gram-negative sepsis, status post ERCP. Echo showed no evidence of endocarditis. Now, the patient initially admitted to the acute floor, now transferred to the transitional care unit for continuity of care and cardiology consult was called. The patient denies any chest pain, shortness of breath, any palpitations, and having the breakfast. PAST MEDICAL HISTORY: Significant for cardiac catheterization twice, found to be nonobstructive coronary artery disease and cath was done in 2004 and 2013, pacemaker in 03/2016, history of paroxysmal atrial fibrillation, history of psychogenic polydipsia, history of hypothyroidism, and history of alcohol abuse. History of previous cardiac workup as follows: The patient had echocardiography on 04/14/2017 that showed ejection fraction 55%, aortic sclerosis with mild aortic stenosis, mild mitral regurgitation, mild tricuspid regurgitation, RV systolic pressure 40, small pericardial effusion and pacemaker lead noted right ventricle and right atrium. No vegetation or thrombus noted dated 04/14/2017. History of cardiac catheterization in 2013, ejection fraction of 55%, and normal coronaries. The patient has a prior cardiac catheterization 10/02/2014, which also shows essentially normal coronaries. The patient has a pacemaker insertion because of sick sinus syndrome, tachybrady syndrome. PERSONAL HISTORY: History of heavy alcohol abuse in the past, says now she stopped drinking one year, history of psychogenic polydipsia. Denies any history of smoking. Prior to smoking of alcohol, the patient used to have 6 to 8 cans of beer everyday. ALLERGIES: THE PATIENT IS ALLERGIC TO LEVAQUIN, PENICILLIN, VANCOMYCIN, AND SULFA. CURRENT MEDICATIONS: The patient was taking Actigall, Azactam, Benadryl, metronidazole, metoprolol, lisinopril, and Zyvox. PHYSICAL EXAMINATION: VITAL SIGNS: As follows; temperature afebrile, heart rate 71, and blood pressure 118/70. HEENT: PERRLA. Extraocular muscles intact. NECK: Supple. No carotid bruit or thyromegaly. CHEST: Clear to auscultation. HEART: S1 and S2 regular. ABDOMEN: Soft. EXTREMITIES: Clubbing and cyanosis negative. LABORATORY DATA: Blood workup as follows: WBC 9.3, hemoglobin 10.5, hematocrit 32.5, and platelet count 131. Chemistries show sodium 135, potassium 3.3, chloride 101, carbon dioxide 28, anion gap 9, BUN 9, and creatinine 0.5 as of 04/16/2017. IMPRESSION: An 82-year-old female with a past medical history significant for nonobstructive coronary artery disease, essentially normal coronaries, status post pacemaker admitted with ascending cholangitis, multiple stones in common bile duct, status post endoscopic retrograde cholangiopancreatography. Now, the patient is recovering. Denies any chest pain or abdominal pain. Now in transitional care unit, history of psychogenic polydipsia, history of ex-alcohol abuse. Recent echo shows no evidence of endocarditis. On admission, the patient has Gram-negative sepsis and positive bacteremia. Repeat blood culture was essentially negative. RECOMMENDATIONS: Continue antibiotic as ordered by ID, continue hydralazine, continue benzodiazepines,continue metoprolol, and we will follow with you. Thank you Dr. Garrido and Dr. Manjit Ventura for taking care of Flor Chandler. We will follow with you. Interim, continue beta-anna, continue lisinopril, continue antihypertensive medication, repeat the blood workup in the morning, and supplement electrolytes as needed. Javier Swanson MD
--- NOTE | 2017-04-19 16:16 | PN ---
DATE: 04/19/2017 SUBJECTIVE: The patient is in bed, in no acute distress, nontoxic. PHYSICAL EXAMINATION VITAL SIGNS: Temperature is 98, blood pressure is 140/70, respiratory rate of 16. HEENT: Unremarkable. NECK: Supple. LUNGS: Decreased breath sounds. HEART: Normal S1 and S2. ABDOMEN: Soft, nontender. LABORATORY EXAMINATION: Reveals the patient's labs are reviewed. Dr. Godfrey's note is reviewed from yesterday. ASSESSMENT AND PLAN: An 82-year-old female who is initially admitted with history of hypertension, coronary artery disease, congestive heart failure, peripheral vascular disease and cataract, was admitted to the acute care with sepsis, with an ascending cholangitis, with Enterococcus avium and Escherichia coli bacteremia and acute pancreatitis. The patient had status post endoscopic retrograde cholangiopancreatography and sphincterotomy and extraction of the stone and a stent placement post procedure day #7. The patient did have bacteremia, were 2 organisms, Enterococcus and Escherichia coli, currently on Zyvox, Azactam; Flagyl #6 of therapy, would complete 10 days, today is day #6 of therapy, would complete 10 days because of the bacteremia. On p.o. Flagyl, p.o. Zyvox. Repeat cultures were negative on the 30. The patient is also on IV Azactam. Sebastian Rosas MD
--- NOTE | 2017-04-20 04:58 | PN ---
DATE: 04/19/2017 SUBJECTIVE: This patient was seen and evaluated earlier. She had no complaints of any abdominal pain and tolerating the diet. PHYSICAL EXAMINATION VITAL SIGNS: She remains afebrile. Blood pressure is 110/53, pulse is 68, and respirations are 18. HEENT: Atraumatic and anicteric. NECK: Supple. HEART: S1 and S2 heard. LUNGS: Bilateral air entry present. ABDOMEN: Soft. There was no mass palpable. No tenderness. EXTREMITIES: No cyanosis and no clubbing. LABORATORY DATA: No recent labs today. The last blood work was on 04/16/2017, shows LFTs were downward trend. IMPRESSION: This 82-year-old patient admitted with a cholangitis and had some multiple gallstones. She had an endoscopic retrograde cholangiopancreatography done, sphincterotomy, and removal of the distal large common bile duct stones, mid and upper proximal multiple stones still present. In view of the cholangitis and multiple stones, further manipulation was avoided at that time and the patient had a 10-[place] 9 cm stent placed. It was a good drainage with a good improvement of the liver function tests. The patient had a bile culture positive for Enterococcus and Escherichia coli. The patient had a mildly elevated pancreatic enzyme, improving. We would recommend continue the antibiotics as per ID. Would need a repeat endoscopic retrograde cholangiopancreatography with a spyglass in view of the large multiple stones. A repeat endoscopy will be considered once the patient has completed the electively in about two weeks' time. Other comorbidities include coronary artery disease, status post pacemaker. We will continue to closely follow up her care and suggest further management based on the clinical course. Thank you very much for allowing us to participate in the care of the patient. Cecelia Cancino MD
[2017-04-20] MEDS: Aztreonam 1 Gm in NS 100mL 100 ML IV SCH ×3 (06:08→21:16)
[2017-04-20] MEDS: Pantoprazole 40 mg EC Tab PO SCH (06:09)
[2017-04-20 07:22] LABS: BASO # 0.03 K/mm3 (0.0-2.0); BASO % 0.4 % (0.0-3.0); EOS # 0.3 (0.0-0.7); EOS % 3.4 % (1.5-5.0); GRAN # 4.55 (1.4-6.5); HEMATOCRIT 30.6 % (36.0-48.0); LYMPH # 2.5 (1.2-3.4); LYMPH % 32.1 % (22.0-35.0); MEAN CELL VOLUME 83.2 fl (80.0-105.0); MEAN CORPUSCULAR HEMOGLOBIN 26.9 pg (25.0-35.0); MEAN CORPUSCULAR HGB CONC 32.4 g/dl (31.0-37.0); MEAN PLATELET VOLUME 10.2 fl (7.0-11.0); MONO # 0.5 (0.1-0.6); MONO % 6.1 % (1.0-6.0); RED CELL DISTRIBUTION WIDTH 13.6 % (11.5-14.5); WHITE BLOOD COUNT 7.9 10^3/ul (4.5-11.0)
[2017-04-20 08:00] LABS: ALB/GLOB RATIO 1.1 (1.1-1.8); ALKALINE PHOSPHATASE 102 U/L (38-126); ALT/SGPT 36 U/L (7-56); AST/SGOT 28 U/L (14-36); BLOOD UREA NITROGEN 10 mg/dL (7-21); CALCIUM 8.3 mg/dL (8.4-10.5); CARBON DIOXIDE 26 mmol/L (21-33); CHLORIDE 101 mmol/L (98-107); GFR AFRICAN-AMERICAN > 60; GLUCOSE,RANDOM 89 mg/dL (70-110); MAGNESIUM 1.2 mg/dL (1.7-2.2); PHOSPHOROUS 2.8 mg/dL (2.5-4.5); POTASSIUM 3.5 mmol/L (3.6-5.0); SODIUM 134 mmol/L (132-148); TOTAL PROTEIN 5.4 g/dL (5.8-8.3)
[2017-04-20] MEDS ORDERED: Potassium Chloride 20 mEq ER Tab PO ONE (10:06)
--- NOTE | 2017-04-20 12:18 | CP.PCM.PN ---
Subjective - Date & Time of Evaluation Date of Evaluation: 04/20/17 Time of Evaluation: 10:00 - Subjective Subjective: No fevers, not in distress. Objective - Vital Signs/Intake and Output Vital Signs (last 24 hours): Temp Pulse Resp BP Pulse Ox 98.0 F 77 26 H 131/76 97 04/20/17 06:00 04/20/17 08:26 04/20/17 06:00 04/20/17 08:26 04/20/17 06:00 - Medications Medications: Current Medications Benzonatate (Tessalon Perles) 100 mg PO TID PRN PRN Reason: Cough Last Admin: 04/19/17 21:59 Dose: 100 mg Clonidine HCl (Catapres) 0.1 mg PO Q6H PRN; Protocol PRN Reason: SBP > 160 or DBP > 100 Last Admin: 04/18/17 10:23 Dose: 0.1 mg Diphenhydramine HCl (Benadryl) 50 mg PO HS PRN; Protocol PRN Reason: Insomnia Last Admin: 04/19/17 21:59 Dose: 50 mg Aztreonam (Azactam 1 Gm) 100 mls @ 100 mls/hr IV Q8 JACKY PRN Reason: Protocol Stop: 04/26/17 22:01 Last Admin: 04/20/17 06:08 Dose: 100 mls/hr Linezolid (Zyvox) 600 mg PO BID JACKY PRN Reason: Protocol Last Admin: 04/19/17 18:19 Dose: 600 mg Lisinopril (Zestril) 10 mg PO DAILY JACKY PRN Reason: Protocol Last Admin: 04/19/17 10:17 Dose: 10 mg Metoprolol Tartrate (Lopressor) 50 mg PO 0800,1800 JACKY PRN Reason: Protocol Last Admin: 04/20/17 08:26 Dose: 50 mg Metronidazole (Flagyl) 500 mg PO Q8 JACKY PRN Reason: Protocol Last Admin: 04/20/17 06:09 Dose: 500 mg Ondansetron HCl (Zofran Inj) 4 mg IVP Q6H PRN; Protocol PRN Reason: Nausea/Vomiting Pantoprazole Sodium (Protonix Ec Tab) 40 mg PO 0600 JACKY Last Admin: 04/20/17 06:09 Dose: 40 mg Ursodiol (Actigall) 300 mg PO 0800 JACKY PRN Reason: Protocol Last Admin: 04/20/17 08:26 Dose: 300 mg - Labs Labs: 04/20/17 07:00 04/20/17 07:00 - Constitutional Appears: Non-toxic, No Acute Distress - Head Exam Head Exam: NORMAL INSPECTION - Neck Exam Neck Exam: absent: Meningismus - Respiratory Exam Respiratory Exam: Decreased Breath Sounds - Cardiovascular Exam Cardiovascular Exam: +S1, +S2 - GI/Abdominal Exam GI & Abdominal Exam: Soft. absent: Tenderness Assessment and Plan - Assessment and Plan (Free Text) Plan: Assessment Sepsis due to acute cholangitis with associated Enterococcus avium and E. coli bacteremia, and acute pancreatitis S/P ERCP with sphinceterotomy, extraction of biliary stones POD #8 HTN CAD peripheral vascular disease cataracts chronic CHF Plan Antibiotics options are limited due to the patient's allergy profile - continue Zyvox, Azactam and Flagyl (day 7); bile fluid and blood cx is showing E. coli and Enterococcus avium repeat blood cx taken from yesterday are negative; 2D echo does not show vegetations will continue to monitor clinically
--- NOTE | 2017-04-20 12:40 | PN ---
DATE: 04/20/2017 REASON FOR CONSULTATION: Followup nonobstructive coronary artery disease, status post pacemaker, admitted with Gram-negative sepsis with significant cholangitis, and cardiac consult for continuity of the care in transitional care unit. SUBJECTIVE: The patient denies any chest pain, shortness of breath, any palpitations, but complaint of right upper quadrant pain, dull pain. PHYSICAL EXAMINATION: GENERAL: Not in apparent distress. Complaining of mild abdominal discomfort. VITAL SIGNS: As follows, temperature afebrile, heart rate 77, and blood pressure 131/76. HEENT: PERRLA. Extraocular muscles are intact. NECK: Supple. No carotid bruit or thyromegaly. CHEST: Clear to auscultation. HEART: S1 and S2, regular. ABDOMEN: Soft. EXTREMITIES: Clubbing and cyanosis negative. LABORATORY DATA: Blood workup as follows: WBC 7.8, hemoglobin 9.9, hematocrit 30.6, and platelet count 129. Chemistry shows sodium 134, potassium 3.5, chloride 101, carbon dioxide 26, anion gap of 11, BUN 10, and creatinine 0.6. IMPRESSION: This is an [id number]-female with past medical history significant for nonobstructive coronary artery disease, status post cardiac catheterization twice in 2004 and 2013, nonobstructive coronary artery disease, status post permanent pacemaker in 03/2016, admitted with Gram-negative sepsis secondary to ascending cholangitis, secondary to stone in common biliary duct, status post endoscopic retrograde cholangiopancreatography, mild abdominal discomfort secondary to cholecystitis and cholelithiasis as well as ascending cholangitis improving. RECOMMENDATIONS: Continue broad-spectrum antibiotic, continue Florastor, continue hydralazine, continue metoprolol, monitor electrolyte, supplement potassium, and we will follow with you. We will continue beta-anna, 50 mg of metoprolol twice, and I will supplement potassium. Thyroid is 4.69, we will start a very low dose of Synthroid. Thank you Dr. Garrido/Dr. Ventura for providing me the opportunity in taking care of the patient, Flor Chandler. Javier Swanson MD [facility] # [id number]
--- NOTE | 2017-04-20 22:38 | CP.PCM.PN ---
Subjective - Date & Time of Evaluation Date of Evaluation: 04/20/17 Time of Evaluation: 17:45 - Subjective Subjective: S&E late this afternoon, no acute complaints or overnight events. Denies SOB, CP , N/V or abdominal pain. No reports of overt GI bleed, fever or chills. Objective - Vital Signs/Intake and Output Vital Signs (last 24 hours): Temp Pulse Resp BP Pulse Ox 97.4 F L 72 18 127/65 100 04/20/17 16:12 04/20/17 17:31 04/20/17 16:12 04/20/17 17:31 04/20/17 16:12 - Medications Medications: Current Medications Benzonatate (Tessalon Perles) 100 mg PO TID PRN PRN Reason: Cough Last Admin: 04/20/17 10:37 Dose: 100 mg Clonidine HCl (Catapres) 0.1 mg PO Q6H PRN; Protocol PRN Reason: SBP > 160 or DBP > 100 Last Admin: 04/18/17 10:23 Dose: 0.1 mg Diphenhydramine HCl (Benadryl) 50 mg PO HS PRN; Protocol PRN Reason: Insomnia Last Admin: 04/20/17 21:22 Dose: 50 mg Aztreonam (Azactam 1 Gm) 100 mls @ 100 mls/hr IV Q8 JACKY PRN Reason: Protocol Stop: 04/26/17 22:01 Last Admin: 04/20/17 21:16 Dose: 100 mls/hr Levothyroxine Sodium (Synthroid) 25 mcg PO 0600 JACKY Linezolid (Zyvox) 600 mg PO BID JACKY PRN Reason: Protocol Last Admin: 04/20/17 17:31 Dose: 600 mg Lisinopril (Zestril) 10 mg PO DAILY JACKY PRN Reason: Protocol Last Admin: 04/20/17 10:24 Dose: 10 mg Metoprolol Tartrate (Lopressor) 50 mg PO 0800,1800 JACKY PRN Reason: Protocol Last Admin: 04/20/17 17:31 Dose: 50 mg Metronidazole (Flagyl) 500 mg PO Q8 JACKY PRN Reason: Protocol Last Admin: 04/20/17 21:16 Dose: 500 mg Ondansetron HCl (Zofran Inj) 4 mg IVP Q6H PRN; Protocol PRN Reason: Nausea/Vomiting Pantoprazole Sodium (Protonix Ec Tab) 40 mg PO 0600 [facility] Last Admin: 04/20/17 06:09 Dose: 40 mg Ursodiol (Actigall) 300 mg PO 0800 [facility] PRN Reason: Protocol Last Admin: 04/20/17 08:26 Dose: 300 mg - Labs Labs: 04/20/17 07:00 04/20/17 07:00 - Constitutional Appears: No Acute Distress - Head Exam Head Exam: NORMOCEPHALIC - Eye Exam Eye Exam: Normal appearance. absent: Scleral icterus - ENT Exam ENT Exam: Mucous Membranes Moist - Neck Exam Neck Exam: Normal Inspection - Respiratory Exam Respiratory Exam: Decreased Breath Sounds, NORMAL BREATHING PATTERN. absent: Rales, Wheezes, Respiratory Distress - Cardiovascular Exam Cardiovascular Exam: +S1, +S2 - GI/Abdominal Exam GI & Abdominal Exam: Soft, Normal Bowel Sounds. absent: Guarding, Tenderness, Rebound - Extremities Exam Extremities Exam: Normal Capillary Refill. absent: Calf Tenderness, Pedal Edema - Neurological Exam Neurological Exam: Alert, Awake, Oriented x3 - Skin Skin Exam: Dry, Warm Assessment and Plan - Assessment and Plan (Free Text) Assessment: Assessment: Status post EGD/ERCP: duodenal ulcers, gastritis, status post sphincterotomy with biliary sweep and status post stent placement Bile aspirate, positive for Enterococcus Avium Pleural effusion History of cholecystectomy Resolved Elevated liver enzymes History of coronary artery disease H/O Pacemaker placement Hypertension Hypomagnesium Plan: monitor LFT replace MG, see orders Continue antibiotics as per ID,on Zyvox & Azactam heart healthy diet Patient will need repeat ERCP with spyglass 3-4 WEEKS continue actigall Continue PPI and DVT prophylaxis check labs in am, cmp, mg Seen and discussed with Dr. Cancino
[2017-04-20] MEDS ORDERED: Magnesium Oxide 400 mg Tab UD PO STA (22:39)
[2017-04-21] MEDS: Aztreonam 1 Gm in NS 100mL 100 ML IV SCH ×3 (05:49→21:34)
[2017-04-21] MEDS: Levothyroxine 25 MCG TAB PO SCH (05:50)
[2017-04-21] MEDS: Pantoprazole 40 mg EC Tab PO SCH (05:50)
[2017-04-21 06:57] LABS: ALB/GLOB RATIO 1.2 (1.1-1.8); ALKALINE PHOSPHATASE 104 U/L (38-126); ALT/SGPT 38 U/L (7-56); AST/SGOT 27 U/L (14-36); BLOOD UREA NITROGEN 10 mg/dL (7-21); CALCIUM 8.7 mg/dL (8.4-10.5); CARBON DIOXIDE 25 mmol/L (21-33); CHLORIDE 102 mmol/L (98-107); GFR AFRICAN-AMERICAN > 60; GLUCOSE,RANDOM 88 mg/dL (70-110); MAGNESIUM 1.2 mg/dL (1.7-2.2); POTASSIUM 4.1 mmol/L (3.6-5.0); SODIUM 134 mmol/L (132-148); TOTAL PROTEIN 5.6 g/dL (5.8-8.3)
[2017-04-21] MEDS ORDERED: Magnesium Sulfate 2 GM in Sodium Chloride 0.9% 100 ML IVPB ONE ×2 (10:05→11:15)
[2017-04-21] MEDS: Magnesium Oxide 400 mg Tab UD PO SCH ×2 (10:15→17:53)
--- NOTE | 2017-04-21 15:42 | PN ---
DATE: 04/21/2017 REASON FOR CONSULTATION AND FOLLOWUP: Nonobstructive coronary artery disease, status post pacemaker, admitted with Gram-negative sepsis, acute significant cholangitis, and cardiac evaluation followup. SUBJECTIVE: The patient denies any chest pain, shortness of breath, denies an abdominal pain, yesterday complaining of right abdominal pain, but has resolved. OBJECTIVE: GENERAL: Feeling better, abdominal pain yesterday had resolved. Not in apparent distress. Lying in bed. VITAL SIGNS: Temperature afebrile, heart rate 84, blood pressure . HEENT: PERRLA intact. NECK: Supple. No carotid bruit or thyromegaly. CHEST: Clear to auscultation. HEART: S1 and S2 regular. ABDOMEN: Soft. EXTREMITIES: Clubbing and cyanosis negative. LABORATORY DATA: Blood workup as follows: WBC 7.8, hemoglobin 9.8, hematocrit 38.6, and platelet count 129. Chemistry shows sodium 134, potassium 4.1, chloride 102, carbon dioxide 25, anion gap of 11, BUN 10, creatinine 0.7, magnesium 1.2. AST 27, ALT 38, TSH 4.69. IMPRESSION: Hypothyroidism, hypomagnesemia, anemia, status post Gram-negative sepsis, status post ascending cholangitis, history of nonobstructive coronary artery disease, status post cardiac catheterization twice, and status post pacemaker. RECOMMENDATIONS: Aggressively supplement magnesium, low dose of Synthroid started. We will follow with you. Thank you Dr. Cardenas for providing me the opportunity in taking care of this patient. Javier Swanson MD
--- NOTE | 2017-04-21 18:37 | CP.PCM.PN ---
Subjective - Date & Time of Evaluation Date of Evaluation: 04/21/17 Time of Evaluation: 11:00 - Subjective Subjective: Comfortable in bed, not in distress, afebrile. Objective - Vital Signs/Intake and Output Vital Signs (last 24 hours): Temp Pulse Resp BP Pulse Ox 97.4 F L 83 18 161/85 H 100 04/20/17 16:12 04/21/17 08:45 04/20/17 16:12 04/21/17 08:45 04/20/17 16:12 - Medications Medications: Current Medications Benzonatate (Tessalon Perles) 100 mg PO TID PRN PRN Reason: Cough Last Admin: 04/20/17 10:37 Dose: 100 mg Clonidine HCl (Catapres) 0.1 mg PO Q6H PRN; Protocol PRN Reason: SBP > 160 or DBP > 100 Last Admin: 04/18/17 10:23 Dose: 0.1 mg Diphenhydramine HCl (Benadryl) 50 mg PO HS PRN; Protocol PRN Reason: Insomnia Last Admin: 04/20/17 21:22 Dose: 50 mg Aztreonam (Azactam 1 Gm) 100 mls @ 100 mls/hr IV Q8 JACKY PRN Reason: Protocol Stop: 04/26/17 22:01 Last Admin: 04/21/17 05:49 Dose: 100 mls/hr Levothyroxine Sodium (Synthroid) 25 mcg PO 0600 JACKY Last Admin: 04/21/17 05:50 Dose: 25 mcg Linezolid (Zyvox) 600 mg PO BID JACKY PRN Reason: Protocol Last Admin: 04/20/17 17:31 Dose: 600 mg Lisinopril (Zestril) 10 mg PO DAILY JACKY PRN Reason: Protocol Last Admin: 04/20/17 10:24 Dose: 10 mg Metoprolol Tartrate (Lopressor) 50 mg PO 0800,1800 JACKY PRN Reason: Protocol Last Admin: 04/21/17 08:45 Dose: 50 mg Metronidazole (Flagyl) 500 mg PO Q8 JACKY PRN Reason: Protocol Last Admin: 04/21/17 05:50 Dose: 500 mg Ondansetron HCl (Zofran Inj) 4 mg IVP Q6H PRN; Protocol PRN Reason: Nausea/Vomiting Pantoprazole Sodium (Protonix Ec Tab) 40 mg PO 0600 [facility] Last Admin: 04/21/17 05:50 Dose: 40 mg Ursodiol (Actigall) 300 mg PO 0800 [facility] PRN Reason: Protocol Last Admin: 04/21/17 08:46 Dose: 300 mg - Labs Labs: 04/20/17 07:00 04/21/17 06:30 - Constitutional Appears: Non-toxic, No Acute Distress - Head Exam Head Exam: NORMAL INSPECTION - ENT Exam ENT Exam: Mucous Membranes Moist - Neck Exam Neck Exam: absent: Lymphadenopathy, Meningismus - Respiratory Exam Respiratory Exam: Decreased Breath Sounds - Cardiovascular Exam Cardiovascular Exam: +S1, +S2 - GI/Abdominal Exam GI & Abdominal Exam: Soft. absent: Tenderness Assessment and Plan - Assessment and Plan (Free Text) Plan: Assessment Sepsis due to acute cholangitis with associated Enterococcus avium and E. coli bacteremia, and acute pancreatitis S/P ERCP with sphinceterotomy, extraction of biliary stones POD #9 HTN CAD peripheral vascular disease cataracts chronic CHF Plan Antibiotics options are limited due to the patient's allergy profile - continue Zyvox, Azactam and Flagyl (day 8); bile fluid and blood cx is showing E. coli and Enterococcus avium repeat blood cx taken from yesterday are negative; 2D echo does not show vegetations will continue to monitor clinically
[2017-04-22] MEDS: Levothyroxine 25 MCG TAB PO SCH (06:10)
[2017-04-22] MEDS: Pantoprazole 40 mg EC Tab PO SCH (06:10)
[2017-04-22] MEDS: Aztreonam 1 Gm in NS 100mL 100 ML IV SCH ×3 (06:10→21:22)
[2017-04-22 06:52] LABS: BASO # 0.04 K/mm3 (0.0-2.0); BASO % 0.5 % (0.0-3.0); EOS # 0.3 (0.0-0.7); EOS % 3.1 % (1.5-5.0); GRAN # 4.54 (1.4-6.5); GRAN % 56.7 % (50.0-68.0); HEMATOCRIT 31.4 % (36.0-48.0); LYMPH # 2.7 (1.2-3.4); LYMPH % 33.5 % (22.0-35.0); MEAN CELL VOLUME 83.5 fl (80.0-105.0); MEAN CORPUSCULAR HEMOGLOBIN 27.1 pg (25.0-35.0); MEAN CORPUSCULAR HGB CONC 32.5 g/dl (31.0-37.0); MEAN PLATELET VOLUME 10.2 fl (7.0-11.0); MONO # 0.5 (0.1-0.6); MONO % 6.2 % (1.0-6.0); RED CELL DISTRIBUTION WIDTH 13.6 % (11.5-14.5)
[2017-04-22 07:06] LABS: BLOOD UREA NITROGEN 10 mg/dL (7-21); CALCIUM 8.9 mg/dL (8.4-10.5); CARBON DIOXIDE 27 mmol/L (21-33); CHLORIDE 100 mmol/L (98-107); GFR AFRICAN-AMERICAN > 60; GLUCOSE,RANDOM 96 mg/dL (70-110); MAGNESIUM 1.8 mg/dL (1.7-2.2); PHOSPHOROUS 2.5 mg/dL (2.5-4.5); POTASSIUM 4.1 mmol/L (3.6-5.0); SODIUM 133 mmol/L (132-148)
[2017-04-22] MEDS: Magnesium Oxide 400 mg Tab UD PO SCH ×2 (10:30→18:44)
[2017-04-22] MEDS ORDERED: Famotidine 20mg/50ml 20 MG/50 ML BAG IVPB STA (18:21)
--- NOTE | 2017-04-22 20:57 | PN ---
ATTENDING PROVIDER: Dr. Javier Swanson. REASON FOR CONSULTATION: Followup, continued care in Transitional Care Unit, admitted with acute cholangitis, history of nonobstructive coronary artery disease, status post pacemaker. SUBJECTIVE: Complaint of mild discomfort in right upper quadrant of abdomen. Denies chest pain, shortness of breath, or any palpitation. OBJECTIVE: GENERAL: Not in apparent distress, lying flat. Friend is at the bedside. VITAL SIGNS: Temperature afebrile, heart rate 70, blood pressure 124/70. HEENT: PERRLA. Extraocular muscles intact. NECK: Supple. No carotid bruit or thyromegaly. CHEST: Clear to auscultation. HEART: S1 and S2 regular. ABDOMEN: Soft. EXTREMITIES: Clubbing and cyanosis negative. LABORATORY DATA: Blood workup as follows: WBC 8, hemoglobin 10.2, hematocrit 31.4, platelet count 132. Chemistry shows sodium 133, potassium 4.1, chloride 100, carbon dioxide 22, anion gap of 10, BUN 10, creatinine 0.8. IMPRESSION: An 82-year-old female with past medical history significant for nonobstructive coronary artery disease, status post cardiac catheterization twice, history of pacemaker, admitted with Gram-negative sepsis, ascending cholangitis, history of multiple stones in common bile duct, status post ERCP, CVS status is stable. RECOMMENDATIONS: Aggressive supplement electrolytes as needed. History of hypomagnesemia corrected. Increase nutritional support. Watch the diet and see the patient has had no further pain in the right upper quadrant. If the pain continues, consider GI evaluation and followup. We will follow with you. CVS status is stable. We will repeat the blood workup in the morning. Possible discharge in a day or 2. [address] Garrido for providing me the opportunity in taking care of this patient. Javier Swanson MD
--- NOTE | 2017-04-22 22:32 | PN ---
DATE: 04/22/2017 SUBJECTIVE: The patient seen early this morning. No fevers. No chills. Doing well. PHYSICAL EXAMINATION VITAL SIGNS: Temperature is 98, blood pressure is 150/70, respiratory rate 18. HEENT: Unremarkable. NECK: Supple. LUNGS: Decreased breath sounds. HEART: Normal S1 and S2. ABDOMEN: Soft. LABORATORY EXAMINATION: Reveals white count of 7.9, hemoglobin of 9.9, and platelets of 129. BUN of 10, creatinine of 0.8. Microbiology reveals C. diff antigen and toxin is negative. ASSESSMENT AND PLAN: This is an 82-year-old female with sepsis due to acute cholangitis associated Enterococcus avium and Escherichia coli bacteremia and acute pancreatitis, status post endoscopic retrograde cholangiopancreatography with sphincterotomy, extraction of the biliary stone, postprocedure day #10 with hypertension, coronary artery disease, peripheral vascular disease, cataract, and chronic congestive heart failure. Today is day #9 of Zyvox, Azactam and Flagyl and negative for echo for vegetations. Repeat cultures were negative. Sebastian Rosas MD
[2017-04-23] MEDS: Aztreonam 1 Gm in NS 100mL 100 ML IV SCH ×3 (06:08→21:25)
[2017-04-23] MEDS: Levothyroxine 25 MCG TAB PO SCH (06:09)
[2017-04-23] MEDS: Pantoprazole 40 mg EC Tab PO SCH (06:09)
[2017-04-23] MEDS: Magnesium Oxide 400 mg Tab UD PO SCH ×2 (09:33→17:36)
--- NOTE | 2017-04-23 13:10 | PN ---
DATE: 04/23/2017 REASON FOR CONSULTATION: Followup continuity of the care in Transitional Care Unit, history of nonobstructive coronary artery disease, status post pacemaker, admitted with ascending cholangitis, in acute medical floor, status post ERCP. SUBJECTIVE: Denies any chest pain, shortness of breath or any palpitation. Complained of mild abdominal pain, which is improving. OBJECTIVE: GENERAL: Not in apparent distress, lying flat on the bed. VITAL SIGNS: Temperature afebrile, heart rate 81, and blood pressure 134/72. HEENT: PERRLA. Extraocular muscles intact. NECK: Supple. No carotid bruit or thyromegaly. CHEST: Clear to auscultation. HEART: S1 and S2, regular. ABDOMEN: Soft. EXTREMITIES: Clubbing and cyanosis negative. LABORATORY DATA: Blood workup as follows: As of yesterday, WBC 8, hemoglobin 10.2, hematocrit 31.4, and platelet count 132. Chemistry showed sodium 133, potassium 4.1, chloride 100, carbon dioxide 20, anion gap of 10, BUN 10, creatinine 0.8. TSH is 4.69. IMPRESSION: Hypothyroidism, hypertension, permanent pacemaker, status post cardiac catheterization twice, nonobstructive coronary artery disease, admitted with ascending cholangitis in common bile duct, status post endoscopic retrograde cholangiopancreatography and a stent. RECOMMENDATIONS: CVS status is stable. Continue to monitor electrolyte, electrolytes supplemented. No further chest pain. Continue GI evaluation. Possible discharge in a day or two. Continue interim. Continue antibiotic as per ID and GI. Continue metoprolol tartrate b.i.d. Continue Levoxyl, if started. We will follow with you. Continue lisinopril. No further cardiac workup is planned or warranted. Javier Swanson MD
--- NOTE | 2017-04-23 20:17 | CP.PCM.PN ---
Subjective - Date & Time of Evaluation Date of Evaluation: 04/23/17 Time of Evaluation: 11:25 - Subjective Subjective: Comfortable, not in distress, afebrile, no abdominal pain. Objective - Vital Signs/Intake and Output Vital Signs (last 24 hours): Temp Pulse Resp BP Pulse Ox 98.1 F 81 20 142/74 99 04/23/17 05:27 04/23/17 08:22 04/23/17 05:27 04/23/17 08:22 04/23/17 05:27 - Medications Medications: Current Medications Acetaminophen (Tylenol 325mg Tab) 650 mg PO Q6H PRN PRN Reason: Pain, moderate (4-7) Last Admin: 04/21/17 14:55 Dose: 650 mg Benzonatate (Tessalon Perles) 100 mg PO TID PRN PRN Reason: Cough Last Admin: 04/21/17 17:53 Dose: 100 mg Clonidine HCl (Catapres) 0.1 mg PO Q6H PRN; Protocol PRN Reason: SBP > 160 or DBP > 100 Last Admin: 04/18/17 10:23 Dose: 0.1 mg Diphenhydramine HCl (Benadryl) 50 mg PO HS PRN; Protocol PRN Reason: Insomnia Last Admin: 04/20/17 21:22 Dose: 50 mg Aztreonam (Azactam 1 Gm) 100 mls @ 100 mls/hr IV Q8 JACKY PRN Reason: Protocol Stop: 04/26/17 22:01 Last Admin: 04/23/17 06:08 Dose: 100 mls/hr Levothyroxine Sodium (Synthroid) 25 mcg PO 0600 JACKY Last Admin: 04/23/17 06:09 Dose: 25 mcg Linezolid (Zyvox) 600 mg PO BID JACKY PRN Reason: Protocol Last Admin: 04/22/17 18:44 Dose: 600 mg Lisinopril (Zestril) 10 mg PO DAILY JACKY PRN Reason: Protocol Last Admin: 04/22/17 10:30 Dose: 10 mg Magnesium Oxide (Mag-Ox) 400 mg PO BID JACKY Stop: 04/23/17 23:59 Last Admin: 04/22/17 18:44 Dose: 400 mg Metoprolol Tartrate (Lopressor) 50 mg PO 0800,1800 JACKY PRN Reason: Protocol Last Admin: 04/23/17 08:22 Dose: 50 mg Ondansetron HCl (Zofran Inj) 4 mg IVP Q6H PRN; Protocol PRN Reason: Nausea/Vomiting Pantoprazole Sodium (Protonix Ec Tab) 40 mg PO 0600 [facility] Last Admin: 04/23/17 06:09 Dose: 40 mg Ursodiol (Actigall) 300 mg PO 0800 JACKY PRN Reason: Protocol Last Admin: 04/23/17 08:22 Dose: 300 mg - Labs Labs: 04/22/17 06:30 04/22/17 06:30 - Constitutional Appears: Non-toxic, No Acute Distress - Neck Exam Neck Exam: absent: Meningismus - Respiratory Exam Respiratory Exam: Decreased Breath Sounds - Cardiovascular Exam Cardiovascular Exam: +S1, +S2 - GI/Abdominal Exam GI & Abdominal Exam: Soft. absent: Tenderness Assessment and Plan - Assessment and Plan (Free Text) Plan: Assessment Sepsis due to acute cholangitis with associated Enterococcus avium and E. coli bacteremia, and acute pancreatitis S/P ERCP with sphinceterotomy, extraction of biliary stones POD #11 HTN CAD peripheral vascular disease cataracts chronic CHF Plan Antibiotics options are limited due to the patient's allergy profile - continue Zyvox, Azactam and Flagyl (day 10); bile fluid and blood cx is showing E. coli and Enterococcus avium - should complete 10-14 days of antibiotics repeat blood cx taken from yesterday are negative; 2D echo does not show vegetations will continue to monitor clinically
[2017-04-24] MEDS: Aztreonam 1 Gm in NS 100mL 100 ML IV SCH (05:32)
[2017-04-24] MEDS: Pantoprazole 40 mg EC Tab PO SCH (05:33)
[2017-04-24] MEDS: Levothyroxine 25 MCG TAB PO SCH (05:33)
[2017-04-24 10:29] VITALS: BP 146/66; PULSE 76
[2017-04-24 11:05] VITALS: RESP 14; TEMP 97.8; O2SAT 100
--- NOTE | 2017-04-24 23:24 | DS ---
DISCHARGE DIAGNOSES: 1. Acute pancreatitis. 2. Gallstone. 3. Acute cholecystitis. 4. Respiratory distress. 5. Severe iron deficiency anemia. 6. Sepsis. 7. History of colon cancer. HOSPITAL COURSE: She was admitted with acute pancreatitis. She also had sepsis, enterococcus. She was treated with IV antibiotics. She underwent ERCP and stone removal by Dr. Cancino. She was transferred to transitional care unit for deconditioning and completion of antibiotics. Pancreatitis resolved during hospitalization. She was also given IV iron for severe iron deficiency anemia. She has a history of colon cancer. No evidence of recurrence. She was given aztreonam and Zyvox. PHYSICAL EXAMINATION: On discharge; GENERAL: Comfortable in bed, in no acute distress. VITAL SIGNS: Temperature 98.7, heart rate 80 per minute, blood pressure 160/70. HEENT: Normal. Pallor positive. NECK: Supple. CHEST: Air entry present, equal bilateral. No added sounds. CARDIOVASCULAR: Within normal limits. S1 and S2 normal. No murmur, no gallop. ABDOMEN: Soft, nontender. No hepatosplenomegaly. EXTREMITIES: No edema. SKIN: Pallor present, warm and dry. CENTRAL NERVOUS SYSTEM: Alert and oriented x3. No focal sensory or motor deficit. MEDICATIONS: Continue home medications. Synthroid 25 mcg daily, lisinopril 10 mg daily, metoprolol 50 mg p.o. b.i.d., Protonix 40 mg daily, and Actigall 300 mg daily. CONDITION ON DISCHARGE: Stable. Follow up with Dr. Garrido in one week. Follow up with Dr. De Jesus in one week for severe iron deficiency. Discussed with the staff nurse, discussed with the patient. DIET: Regular diet. DISPOSITION: Discharge home. ACTIVITY: As tolerated. Time spent in preparing discharge and coordinating care 60 minutes. Yesi De Jesus MD
== END 2017-04-24 13:11 | disposition home or self-care (01) | DRG 871 ==
LOC: TRCU 12:23
PROVIDERS: ADMIT Internal Medicine; ATTEND Internal Medicine
PROC: F07Z9FZ Gait Training/Functional Ambulation Treatment using Assistive, Adaptive, Supportive or Protective Equipment (ICD-10-PCS; principal; 2017-04-17)
PROC: F07M6ZZ Therapeutic Exercise Treatment of Musculoskeletal System - Whole Body (ICD-10-PCS; 2017-04-17)
PROC: F08Z2ZZ Grooming/Personal Hygiene Treatment (ICD-10-PCS; 2017-04-17)
PROC: F08Z1ZZ Dressing Techniques Treatment (ICD-10-PCS; 2017-04-17)
DX: A41.51 Sepsis due to Escherichia coli [E. coli] (principal); K85.10 Biliary acute pancreatitis without necrosis or infection; I13.0 Hypertensive heart and chronic kidney disease with heart failure and stage 1 through stage 4 chronic kidney disease, or unspecified chronic kidney disease; E83.42 Hypomagnesemia; I08.3 Combined rheumatic disorders of mitral, aortic and tricuspid valves; I50.9 Heart failure, unspecified; K26.9 Duodenal ulcer, unspecified as acute or chronic, without hemorrhage or perforation; I48.0 Paroxysmal atrial fibrillation; D50.9 Iron deficiency anemia, unspecified; A41.81 Sepsis due to Enterococcus; E03.9 Hypothyroidism, unspecified; N18.9 Chronic kidney disease, unspecified; Z85.038 Personal history of other malignant neoplasm of large intestine; I25.10 Atherosclerotic heart disease of native coronary artery without angina pectoris; I73.9 Peripheral vascular disease, unspecified; K29.70 Gastritis, unspecified, without bleeding; Z86.73 Personal history of transient ischemic attack (TIA), and cerebral infarction without residual deficits; Z87.11 Personal history of peptic ulcer disease; Z87.442 Personal history of urinary calculi; Z88.2 Allergy status to sulfonamides; Z90.49 Acquired absence of other specified parts of digestive tract; Z95.0 Presence of cardiac pacemaker; Z95.5 Presence of coronary angioplasty implant and graft; Z87.898 Personal history of other specified conditions; Z88.1 Allergy status to other antibiotic agents; Z88.0 Allergy status to penicillin; Z98.49 Cataract extraction status, unspecified eye

== ENCOUNTER 2017-07-30 10:46 | Day surgery (SDC) | payer MEDICARE ==
[2017-07-29 07:55] VITALS: BMI 21.6
[2017-07-30 11:34] LABS: BASO # 0.03 K/mm3 (0.0-2.0); BASO % 0.3 % (0.0-3.0); EOS # 0.2 (0.0-0.7); EOS % 1.6 % (1.5-5.0); GRAN # 4.32 (1.4-6.5); GRAN % 44.2 % (50.0-68.0); HEMATOCRIT 41.4 % (36.0-48.0); LYMPH # 4.5 (1.2-3.4); LYMPH % 45.8 % (22.0-35.0); MEAN CELL VOLUME 87.5 fl (80.0-105.0); MEAN CORPUSCULAR HEMOGLOBIN 28.5 pg (25.0-35.0); MEAN CORPUSCULAR HGB CONC 32.6 g/dl (31.0-37.0); MEAN PLATELET VOLUME 10.7 fl (7.0-11.0); MONO # 0.8 (0.1-0.6); MONO % 8.1 % (1.0-6.0); RED CELL DISTRIBUTION WIDTH 13.1 % (11.5-14.5); WHITE BLOOD COUNT 9.8 10^3/ul (4.5-11.0)
[2017-07-30] MEDS ORDERED: Glucagon Recombinant 1 mg Inj ONE (11:38)
[2017-07-30] MEDS ORDERED: Iohexol 240 (50 ml) ONE (11:38)
[2017-07-30] MEDS ORDERED: Indomethacin 50 MG Suppository PR ONE (11:39)
[2017-07-30 11:41] LABS: ALB/GLOB RATIO 1.3 (1.1-1.8); BLOOD UREA NITROGEN 16 mg/dL (7-21); CALCIUM 10.2 mg/dL (8.4-10.5); CARBON DIOXIDE 25 mmol/L (21-33); CHLORIDE 104 mmol/L (98-107); GFR AFRICAN-AMERICAN > 60; GLUCOSE,RANDOM 117 mg/dL (70-110); POTASSIUM 4.4 mmol/L (3.6-5.0); SODIUM 141 mmol/L (132-148); TOTAL PROTEIN 7.8 g/dL (5.8-8.3)
[2017-07-30 11:42] LABS: ALKALINE PHOSPHATASE 99 U/L (38-126); ALT/SGPT 24 U/L (7-56); AMYLASE 87 U/L (35-125); AST/SGOT 30 U/L (14-36); BILIRUBIN,TOTAL 0.6 mg/dL (0.2-1.3); LIPASE 141 U/L (23-300)
[2017-07-30 11:47] LABS: INR 1.05 (0.93-1.08); PARTIAL THROMBOPLASTIN TIME 32.1 Seconds (25.1-36.5)
[2017-07-30 12:15] VITALS: O2SAT 100
[2017-07-30] MEDS ORDERED: Lidocaine 2% Inj (20ml) ONE (12:48)
[2017-07-30] MEDS ORDERED: Etomidate 20 mg/10ml Inj IV ONE (12:48)
[2017-07-30] MEDS ORDERED: Rocuronium 10 mg/ml (5 ml) ONE ×2 (12:49→15:13)
[2017-07-30] MEDS ORDERED: Succinylcholine 200 mg/10 ml Inj IV ONE (12:49)
[2017-07-30] MEDS ORDERED: Esmolol 100 mg/10ml Inj IV ONE (13:08)
[2017-07-30] MEDS ORDERED: ePHEDrine 50 mg/ml Inj ONE (13:21)
[2017-07-30] MEDS ORDERED: Aztreonam 1 Gm in NS 100mL 100 ML IVPB STA (13:27)
[2017-07-30] MEDS ORDERED: Neostigmine Methylsulfate 3mg/3ml Syringe IV ONE (15:49)
[2017-07-30] MEDS ORDERED: Sodium Chloride 0.9% 1,000 ML IV SCH (16:15)
[2017-07-30] MEDS ORDERED: Dextrose 5%/0.45% NS 1,000 ML IV SCH (18:00)
[2017-07-30] MEDS: Aztreonam 1 Gm in NS 100mL 100 ML IVPB SCH (22:14)
[2017-07-30] MEDS: metroNIDAZOLE IV 250mg/50 ml 250 MG/50 ML BAG IVPB SCH (23:36)
[2017-07-31] MEDS: metroNIDAZOLE IV 250mg/50 ml 250 MG/50 ML BAG IVPB SCH ×2 (05:26→13:54)
[2017-07-31 06:00] VITALS: RESP 20
[2017-07-31] MEDS: Aztreonam 1 Gm in NS 100mL 100 ML IVPB SCH (06:29)
[2017-07-31 07:17] LABS: BASO # 0.02 K/mm3 (0.0-2.0); BASO % 0.3 % (0.0-3.0); EOS # 0.2 (0.0-0.7); GRAN # 4.17 (1.4-6.5); GRAN % 58.9 % (50.0-68.0); HEMATOCRIT 36.4 % (36.0-48.0); LYMPH # 1.8 (1.2-3.4); LYMPH % 24.9 % (22.0-35.0); MEAN CELL VOLUME 89.2 fl (80.0-105.0); MEAN CORPUSCULAR HEMOGLOBIN 27.5 pg (25.0-35.0); MEAN CORPUSCULAR HGB CONC 30.8 g/dl (31.0-37.0); MEAN PLATELET VOLUME 11.1 fl (7.0-11.0); MONO # 0.9 (0.1-0.6); MONO % 12.9 % (1.0-6.0); RED CELL DISTRIBUTION WIDTH 13.4 % (11.5-14.5); WHITE BLOOD COUNT 7.1 10^3/ul (4.5-11.0)
[2017-07-31 09:26] VITALS: TEMP 97.7
[2017-07-31 09:29] VITALS: BP 108/60; PULSE 67
[2017-07-31 10:31] LABS: ALB/GLOB RATIO 1.1 (1.1-1.8); ALKALINE PHOSPHATASE 66 U/L (38-126); ALT/SGPT 27 U/L (7-56); AMYLASE 90 U/L (35-125); AST/SGOT 30 U/L (14-36); BILIRUBIN,TOTAL 0.6 mg/dL (0.2-1.3); BLOOD UREA NITROGEN 17 mg/dL (7-21); CALCIUM 8.7 mg/dL (8.4-10.5); CARBON DIOXIDE 23 mmol/L (21-33); CHLORIDE 108 mmol/L (98-107); GFR AFRICAN-AMERICAN > 60; GLUCOSE,RANDOM 93 mg/dL (70-110); POTASSIUM 4.6 mmol/L (3.6-5.0); SODIUM 140 mmol/L (132-148); TOTAL PROTEIN 5.8 g/dL (5.8-8.3)
== END 2017-07-31 15:45 | disposition home or self-care (01) ==
LOC: ENDO 10:46 → 5RNO 17:45 → ENDO 07-31 15:45
PROVIDERS: ATTEND Internal Medicine Gastroenterology
DX: K80.50 Calculus of bile duct without cholangitis or cholecystitis without obstruction (principal); I25.10 Atherosclerotic heart disease of native coronary artery without angina pectoris; I50.9 Heart failure, unspecified; I10 Essential (primary) hypertension; Z87.11 Personal history of peptic ulcer disease; Z85.038 Personal history of other malignant neoplasm of large intestine; Z90.49 Acquired absence of other specified parts of digestive tract; Z88.1 Allergy status to other antibiotic agents; Z88.0 Allergy status to penicillin; Z88.2 Allergy status to sulfonamides; Z95.0 Presence of cardiac pacemaker
CPT/HCPCS: 36415 ×2; 43264; 43276; 80053 ×2; 82150 ×2; 82977; 83690; 85025 ×2; 85610; 85730; 87070; 87181; C1726; C2625; J0330; J1610; J2710; J3010; J7030; J7042; Q9966

== ENCOUNTER 2017-09-10 10:22 | Day surgery (SDC) | payer MEDICARE ==
[2017-07-29 07:55] VITALS: BMI 21.6
[~2017-09-10 10:22] MED LIST: Lactated Ringer's 1,000 ML IV SCH
[2017-09-10 11:36] LABS: BASO # 0.03 K/mm3 (0.0-2.0); BASO % 0.3 % (0.0-3.0); EOS # 0.2 (0.0-0.7); GRAN # 4.5 (1.4-6.5); HEMOGLOBIN 13.9 g/dL (12.0-16.0); LYMPH # 3.6 (1.2-3.4); LYMPH % 39.8 % (22.0-35.0); MEAN CELL VOLUME 88.3 fl (80.0-105.0); MEAN CORPUSCULAR HEMOGLOBIN 28.1 pg (25.0-35.0); MEAN CORPUSCULAR HGB CONC 31.8 g/dl (31.0-37.0); MEAN PLATELET VOLUME 11.3 fl (7.0-11.0); MONO # 0.7 (0.1-0.6); MONO % 7.9 % (1.0-6.0); RBC 4.95 10^6/uL (3.5-6.1); RED CELL DISTRIBUTION WIDTH 13.2 % (11.5-14.5)
[2017-09-10] MEDS ORDERED: Iohexol 240 (50 ml) ONE (11:40)
[2017-09-10] MEDS ORDERED: Indomethacin 50 MG Suppository PR ONE ×2 (11:41→15:02)
[2017-09-10 11:44] LABS: ALB/GLOB RATIO 1.2 (1.1-1.8); ALT/SGPT 21 U/L (7-56); AMYLASE 89 U/L (35-125); AST/SGOT 21 U/L (14-36); BLOOD UREA NITROGEN 12 mg/dL (7-21); CALCIUM 10.5 mg/dL (8.4-10.5); GAMMA GLUTAMYL TRANSPEPTIDASE 13 U/L (8-78); GFR AFRICAN-AMERICAN > 60; GFR NON-AFRICAN AMERICAN > 60; LIPASE 110 U/L (23-300)
[2017-09-10 11:45] LABS: INR 1.03 (0.93-1.08); PROTHROMBIN TIME 11.9 SECONDS (9.4-12.5)
[2017-09-10] MEDS ORDERED: Midazolam 2 MG/2 ML VIAL ONE (12:42)
[2017-09-10] MEDS ORDERED: Etomidate 20 mg/10ml Inj IV ONE (12:44)
[2017-09-10] MEDS ORDERED: Rocuronium 10 mg/ml (5 ml) ONE (12:44)
[2017-09-10] MEDS ORDERED: Aztreonam 1 Gm in NS 100mL 100 ML IVPB STA (13:41)
[2017-09-10] MEDS ORDERED: Neostigmine Methylsulfate 3mg/3ml Syringe IV ONE (14:20)
[2017-09-10] MEDS ORDERED: Glycopyrrolate 0.2 mg/ml (2ml vial) ONE (14:20)
[2017-09-11 07:00] LABS: BASO # 0.04 K/mm3 (0.0-2.0); BASO % 0.5 % (0.0-3.0); EOS # 0.3 (0.0-0.7); EOS % 3.9 % (1.5-5.0); GRAN # 3.13 (1.4-6.5); GRAN % 38.4 % (50.0-68.0); HEMOGLOBIN 12.5 g/dL (12.0-16.0); LYMPH # 3.7 (1.2-3.4); LYMPH % 45.6 % (22.0-35.0); MEAN CELL VOLUME 88.3 fl (80.0-105.0); MEAN CORPUSCULAR HEMOGLOBIN 28.1 pg (25.0-35.0); MEAN CORPUSCULAR HGB CONC 31.8 g/dl (31.0-37.0); MEAN PLATELET VOLUME 10.7 fl (7.0-11.0); MONO % 11.6 % (1.0-6.0); RBC 4.45 10^6/uL (3.5-6.1); RED CELL DISTRIBUTION WIDTH 13.3 % (11.5-14.5); WHITE BLOOD COUNT 8.2 10^3/ul (4.5-11.0)
[2017-09-11 08:01] VITALS: BP 102/65; PULSE 60; RESP 20; TEMP 97.2; O2SAT 99
[2017-09-11 09:59] LABS: ALB/GLOB RATIO 1.1 (1.1-1.8); ALBUMIN 3.2 g/dL (3.0-4.8); CALCIUM 9.7 mg/dL (8.4-10.5)
--- NOTE | 2017-09-13 14:38 | RAD ---
PROCEDURE: ERCP HISTORY: STENT REMOVAL / ? CBD OBST COMPARISON: TECHNIQUE: Fluoroscopy was provided in the endoscopy suite. 640 seconds of fluoro time were used. 15 images were submitted FINDINGS: The study shows a dilated common duct with passage of a balloon catheter IMPRESSION: As above
== END 2017-09-11 17:37 | disposition home or self-care (01) ==
LOC: ENDO 10:22 → 5RNO 18:10 → ENDO 09-11 17:37
PROVIDERS: ATTEND Internal Medicine Gastroenterology
DX: K80.50 Calculus of bile duct without cholangitis or cholecystitis without obstruction (principal); I10 Essential (primary) hypertension; I25.10 Atherosclerotic heart disease of native coronary artery without angina pectoris; Z95.0 Presence of cardiac pacemaker
CPT/HCPCS: 36415 ×2; 43264; 43275; 74330; 80053 ×2; 82150 ×2; 82977; 83690 ×2; 85025 ×2; 85610; 85730; C1726; J2001; J2250; J2405; J2710; J3010; J7030; J7120; Q9966

== ENCOUNTER 2018-09-05 16:57 | Emergency (ER) | payer MEDICARE ==
[2018-09-05 16:57] VITALS: BMI 21.6
--- NOTE | 2018-09-05 17:14 | ED PDOC ---
Arrival/HPI - General Chief Complaint: Upper Extremity Problem/Injury Historian: Patient, Other (friend) - History of Present Illness Time/Duration: Other (yesterday morning) Symptom Onset: Gradual Symptom Course: Worsening Quality: Aching Severity Level: Mild Associated Symptoms (Text): 09/05/18 17:11 Patient woke up yesterday morning with left-sided trapezius pain. Became worse and radiated towards her shoulder posteriorly. No numbness tingling or paresthesias. No weakness. No chest pain palpitations or dyspnea. No back pain. She took some Tylenol this morning which did help. She believes that she slept in an awkward position. Past Medical History - Infectious Disease Hx of Infectious Diseases: None - Tetanus Immunization Tetanus Immunization: Unknown - Cardiac Hx Hypertension: Yes Hx Pacemaker: Yes (TO BRING CARD) - Pulmonary Hx Respiratory Disorders: No - Neurological Hx Paralysis: No - HEENT Hx HEENT Disorder: Yes (Wears eyeglasses) Hx Cataracts: Yes (right eye no sx) - Renal Hx Renal Disorder: Yes Hx Kidney Stones: Yes - Endocrine/Metabolic Hx Endocrine Disorders: No - Hematological/Oncological Hx Anemia: Yes Hx Blood Transfusions: Yes Hx Blood Transfusion Reaction: No - Integumentary Hx Dermatological Disorder: No - Musculoskeletal/Rheumatological Hx Musculoskeletal Disorders: Yes - Gastrointestinal Hx Gastrointestinal Disorders: Yes (CHOLANGITIS,PANCREATITIS,COLON CA WITH COLON RESECTION,GERD,AP,CHOLEYCYSTEC) - Genitourinary/Gynecological Hx Genitourinary Disorders: (KIDNEY STONES,LEFT KIDNEY SURGERY) Hx Reproductive Disorders: No - Psychiatric Hx Emotional Abuse: No Hx Physical Abuse: No Hx Substance Use: No - Surgical History Hx Appendectomy: Yes Hx Cholecystectomy: Yes - Anesthesia Hx Anesthesia: Yes Hx Anesthesia Reactions: No Hx Malignant Hyperthermia: No - Suicidal Assessment Feels Threatened In Home Enviroment: No Family/Social History - Physician Review Nursing Documentation Reviewed: Yes Family/Social History: Unknown Family HX Smoking Status: Former Smoker Hx Alcohol Use: No Hx Substance Use: No Hx Substance Use Treatment: No Allergies/Home Meds Allergies/Adverse Reactions: Allergies levofloxacin [From Levaquin] Allergy (Verified 04/16/17 14:17) RASH methimazole Allergy (Verified 04/16/17 14:17) RASH moxifloxacin Allergy (Verified 04/16/17 14:17) RASH Penicillins Allergy (Verified 04/16/17 14:17) RASH vancomycin Allergy (Verified 04/16/17 14:17) DIZZINESS sulfa Allergy (Uncoded 04/16/17 14:17) DIZZINESS Home Medications: Home Meds Medication Instructions Recorded Confirmed Aspirin [Lo-Dose Aspirin EC] 81 mg PO DAILY 07/22/17 09/10/17 Metoprolol Tartrate [Lopressor] 25 mg PO DAILY 07/22/17 09/10/17 Ursodiol [Actigall] 300 mg PO BID 09/01/17 09/10/17 Review of Systems - Physician Review All systems were reviewed & negative as marked: Yes - Review of Systems Constitutional: Normal Respiratory: Normal Cardiovascular: Normal Neurological: Normal Physical Exam Temperature: Afebrile Blood Pressure: Normal Pulse: Regular Respiratory Rate: Normal Appearance: Positive for: Well-Appearing, Non-Toxic, Uncomfortable Pain Distress: Mild Mental Status: Positive for: Alert and Oriented X 3 - Systems Exam Head: Present: Atraumatic, Normocephalic Neck: Present: Normal Range of Motion, Paraspinal Tenderness (Mild left trapezius tenderness. No spasm. No swelling or skin changes. No rash.). No: Meningeal Signs, MIDLINE TENDERNESS Respiratory/Chest: Present: Clear to Auscultation, Good Air Exchange. No: Respiratory Distress, Accessory Muscle Use Cardiovascular: Present: Regular Rate and Rhythm, Normal S1, S2. No: Murmurs Upper Extremity: Present: Normal Inspection, Normal ROM, NORMAL PULSES, Neurovascularly Intact. No: Cyanosis, Edema, Tenderness, Swelling, Erythema, Deformity Neurological: Present: GCS=15, CN II-XII Intact, Speech Normal, Motor Func Grossly Intact, Normal Sensory Function, Normal Cerebellar Funct Skin: Present: Warm, Dry, Normal Color. No: Rashes Medical Decision Making ED Course and Treatment: 09/05/18 18:09 Symptoms improved post Toradol. - RAD Interpretation Radiology Orders: 09/05/18 17:10 CERVICAL SPINE >18YR W/OBLIQUE [RAD] Stat Cervical spine shows severe DJD. No fracture or dislocation. 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 Ulcer: No History Surgical Site Infection Following: None - Disposition Have Diagnosis and Disposition been Completed?: Yes Diagnosis: Cervical myofascial strain Disposition: HOME/ ROUTINE Disposition Time: 18:10 Patient Plan: Discharge Condition: IMPROVED Discharge Instructions (ExitCare): Cervical Muscle Strain (DC), Neck Sprain (DC) Additional Instructions: Rest and moist heat. Tylenol OTC as directed on bottle. Follow-up with PMD. Follow up in ER as needed. Prescriptions: Cyclobenzaprine [Flexeril] 5 mg PO Q8 #15 tab Forms: [employer] (Bulgarian)
[2018-09-05 18:09] VITALS: BP 159/81; PULSE 90; RESP 16; TEMP 98.2; O2SAT 100
--- NOTE | 2018-09-05 18:14 | RAD ---
Date of service: 09/05/2018 PROCEDURE: Cervical Spine Radiographs. HISTORY: Pain. COMPARISON: None available. FINDINGS: BONES: Alignment maintained. No fracture. Dens Intact. DISC SPACES: Multilevel disc space narrowing with disc osteophyte complex formation and neural foraminal narrowing. SOFT TISSUES: Normal. No prevertebral soft tissue swelling. OTHER FINDINGS: None. IMPRESSION: No acute fracture. Multilevel degenerative changes.
== END 2018-09-05 18:35 | disposition home or self-care (01) ==
LOC: ED 16:57
DX: S16.1XXA Strain of muscle, fascia and tendon at neck level, initial encounter (principal); X50.1XXA Overexertion from prolonged static or awkward postures, initial encounter
CPT/HCPCS: 72050; 96372; 99284; J1885

== ENCOUNTER 2018-11-19 10:22 | Inpatient (IN) | payer MEDICARE ==
[2018-11-19 10:22] VITALS: BMI 21.6
--- NOTE | 2018-11-19 10:40 | ED PDOC ---
Arrival/HPI - General Chief Complaint: Cough, Cold, Congestion Time Seen by Provider: 11/19/18 10:26 Historian: Patient - History of Present Illness Narrative History of Present Illness (Text): 11/19/18 10:51 A 83 year old female, whose past medical history includes hypertension, pacemaker, cholangitis, pancreatitis, colon CA with colon resection, GERD, cholecystitis, and kidney stones, presents to the emergency department comp laining of cough with sputum for 1 week. Patient reports notes also experiencing some shortness of breath and intermittent chest pain. Also, patient mentions prior to cough starting, last week she had fever and chills, however is no longer experiencing these symptoms. Patient denies any other complaints at this time. Mentions she lives in a senior home. Past Medical History - Provider Review Nursing Documentation Reviewed: Yes - Infectious Disease Hx of Infectious Diseases: None - Tetanus Immunization Tetanus Immunization: Unknown - Reproductive Menopause: Yes - Cardiac Hx Hypertension: Yes Hx Pacemaker: Yes (TO BRING CARD) - Pulmonary Hx Respiratory Disorders: No - Neurological Hx Paralysis: No - HEENT Hx HEENT Disorder: Yes (Wears eyeglasses) Hx Cataracts: Yes (right eye no sx) - Renal Hx Renal Disorder: Yes Hx Kidney Stones: Yes - Endocrine/Metabolic Hx Endocrine Disorders: No - Hematological/Oncological Hx Anemia: Yes Hx Blood Transfusions: Yes Hx Blood Transfusion Reaction: No - Integumentary Hx Dermatological Disorder: No - Musculoskeletal/Rheumatological Hx Musculoskeletal Disorders: Yes - Gastrointestinal Hx Gastrointestinal Disorders: Yes (CHOLANGITIS,PANCREATITIS,COLON CA WITH COLON RESECTION,GERD,AP,CHOLEYCYSTEC) - Genitourinary/Gynecological Hx Genitourinary Disorders: (KIDNEY STONES,LEFT KIDNEY SURGERY) Hx Reproductive Disorders: No - Psychiatric Hx Emotional Abuse: No Hx Physical Abuse: No Hx Substance Use: No - Surgical History Hx Appendectomy: Yes Hx Cholecystectomy: Yes - Anesthesia Hx Anesthesia: Yes Hx Anesthesia Reactions: No Hx Malignant Hyperthermia: No - Suicidal Assessment Feels Threatened In Home Enviroment: No Family/Social History - Physician Review Nursing Documentation Reviewed: Yes Family/Social History: No Known Family HX Smoking Status: Former Smoker Hx Alcohol Use: No Hx Substance Use: No Hx Substance Use Treatment: No Allergies/Home Meds Allergies/Adverse Reactions: Allergies levofloxacin [From Levaquin] Allergy (Verified 11/19/18 10:31) RASH methimazole Allergy (Verified 11/19/18 10:31) RASH moxifloxacin Allergy (Verified 11/19/18 10:31) RASH Penicillins Allergy (Verified 11/19/18 10:31) RASH vancomycin Allergy (Verified 11/19/18 10:31) DIZZINESS sulfa Allergy (Uncoded 04/16/17 14:17) DIZZINESS Home Medications: Home Meds Medication Instructions Recorded Confirmed Aspirin [Lo-Dose Aspirin EC] 81 mg PO DAILY 07/22/17 11/19/18 Metoprolol Tartrate [Lopressor] 25 mg PO DAILY 07/22/17 11/19/18 Review of Systems - Physician Review All systems were reviewed & negative as marked: Yes - Review of Systems Constitutional: absent: Fevers, Night Sweats Respiratory: SOB (slightly), Cough, Sputum Cardiovascular: Chest Pain (on and off) Physical Exam Vital Signs Reviewed: Yes Vital Signs Temp Pulse Resp BP Pulse Ox 11/19/18 10:36 98.0 F 79 18 157/81 H 97 11/19/18 10:27 98.7 F 88 20 97 11/19/18 10:22 98.7 F 88 20 137/19 L 97 Temperature: Afebrile Blood Pressure: Normal Pulse: Regular Respiratory Rate: Normal Appearance: Positive for: Well-Appearing, Non-Toxic, Comfortable Pain Distress: None Mental Status: Positive for: Alert and Oriented X 3 - Systems Exam Head: Present: Atraumatic, Normocephalic Pupils: Present: PERRL Extroacular Muscles: Present: EOMI Conjunctiva: Present: Normal Mouth: Present: Moist Mucous Membranes Pharnyx: Present: Normal Neck: Present: Normal Range of Motion. No: JVD Respiratory/Chest: Present: Wheezes, Decreased Breath Sounds, Rhonchi. No: Rales Cardiovascular: Present: Regular Rate and Rhythm, Normal S1, S2, Peripheal Pulses Present. No: Murmurs Abdomen: Present: Normal Bowel Sounds. No: Tenderness, Distention Back: Present: Normal Inspection Lower Extremity: Present: Normal Inspection. No: Edema Neurological: Present: CN II-XII Intact, Speech Normal, Motor Func Grossly Intact, Normal Sensory Function, Normal Cerebellar Funct Skin: Present: Warm, Dry, Normal Color. No: Rashes Psychiatric: Present: Alert, Oriented x 3, Normal Insight, Normal Concentration Medical Decision Making ED Course and Treatment: 11/19/18 10:53 Impression: 83 year old female with cough with sputum. Physical exam shows diffuse rhonchi, no wheezing/rales; no edema. Plan: -- EKG -- Chest X-ray -- Labs -- Duoneb -- Reassess and disposition Progress Notes: 11/19/18 12:07 Patient states she is feeling slightly better. Wheezing/rhonchi persist, a/e slightly improved. Additional Duoneb and steroids ordered. 11/19/18 12:30 Patient reassessed, has minimal improvement on exam. Plan admit for further evaluation and management. Patient agreeable w/POC. 11/19/18 12:[address] Garrido, who accepts patient for full admission for COPD. - Lab Interpretations I have reviewed the lab results: Yes - RAD Interpretation Radiology Orders: 11/19/18 10:32 CHEST PORTABLE [RAD] Stat - EKG Interpretation EKG Interpretation (Text): EKG: Ordered, reviewed, and independently interpreted the EKG. Rate : 85 BPM Rhythm : Paced Interpretation : No ST-segment elevations or depressions, no T-wave inversions, normal intervals. Comparison : No previous EKG for comparison. - Scribe Statement The provider has reviewed the documentation as recorded by the Elliot Ferris Provider Scribe Attestation: All medical record entries made by the Scribarabella were at my direction and personally dictated by me. I have reviewed the chart and agree that the record accurately reflects my personal performance of the history, physical exam, medical decision making, and the department course for this patient. I have also personally directed, reviewed, and agree with the discharge instructions and disposition. Disposition/Present on Arrival - Present on Arrival Any Indicators Present on Arrival: No History of DVT/PE: No History of Uncontrolled Diabetes: No Urinary Catheter: No History of Decub. Ulcer: No History Surgical Site Infection Following: None - Disposition Have Diagnosis and Disposition been Completed?: Yes Diagnosis: COPD exacerbation, Hypomagnesemia Disposition: HOSPITALIZED Disposition Time: 12:45 Patient Plan: Admission Patient Problems: Current Active Problems Problem Status Onset COPD exacerbation Acute Hypomagnesemia Acute Condition: STABLE
[2018-11-19] MEDS ORDERED: Albuterol-Ipratrop 3 mg / 0.5 (3 ml) UD IH STA ×2 (10:47→12:07)
[2018-11-19 11:07] LABS: BASO # 0.04 K/mm3 (0.0-2.0); BASO % 0.7 % (0.0-3.0); EOS # 0.1 (0.0-0.7); EOS % 1.2 % (1.5-5.0); HEMOGLOBIN 12.6 g/dL (12.0-16.0); LYMPH # 2.6 (1.2-3.4); LYMPH % 44.5 % (22.0-35.0); MEAN CELL VOLUME 86.8 fl (80.0-105.0); MEAN CORPUSCULAR HEMOGLOBIN 27.8 pg (25.0-35.0); MEAN PLATELET VOLUME 10.5 fl (7.0-11.0); MONO % 16.3 % (1.0-6.0); RBC 4.54 10^6/uL (3.5-6.1); RED CELL DISTRIBUTION WIDTH 14.2 % (11.5-14.5); WHITE BLOOD COUNT 5.9 10^3/uL (4.5-11.0)
[2018-11-19 11:17] LABS: BLOOD UREA NITROGEN 10 mg/dL (7-21); CALCIUM 9.7 mg/dL (8.4-10.5); GFR NON-AFRICAN AMERICAN > 60
[2018-11-19] MEDS ORDERED: Magnesium Sulfate 2 gm/50 ml 2 GM/50 ML BAG IVPB ONE (11:18)
[2018-11-19 11:29] LABS: B-TYPE NATRIURETIC PEPTIDE 6860 pg/mL (0-450); TROPONIN I 0.02 ng/mL
--- NOTE | 2018-11-19 13:02 | RAD ---
HISTORY: cough COMPARISON: Chest x-ray performed 04/10/17 TECHNIQUE: Chest, one view. FINDINGS: LUNGS: Hyperinflation may be seen in setting of COPD. Increased lucencies especially within the bilateral upper lung barr compatible with underlying emphysema. Right basilar atelectasis. Biapical pleural thickening. 6 mm probable calcified granuloma. Please note that chest x-ray has limited sensitivity for the detection of pulmonary masses. PLEURA: No significant pleural effusion identified. No definite pneumothorax . CARDIOVASCULAR: Single lead left-sided pacemaker. Heart size appears top normal. Atherosclerotic calcifications of the aorta. OSSEOUS STRUCTURES: Osseous demineralization. VISUALIZED UPPER ABDOMEN: Right upper quadrant surgical clips. OTHER FINDINGS: None. IMPRESSION: COPD/emphysema. Biapical pleural thickening. Right basilar atelectasis.
[2018-11-19] MEDS ORDERED: Pneumococcal 23-Valent Vaccine IM ONE (15:04)
[2018-11-19] MEDS ORDERED: Influenza Vaccine 60 mcg/0.5 mL SYR (4YR UP) IM ONE (15:04)
[2018-11-19] MEDS ORDERED: Albuterol-Ipratrop 3 mg / 0.5 (3 ml) UD IH PRN (15:05)
[2018-11-19] MEDS: MethylPREDNISolone 40 mg Vial IV SCH ×2 (15:44→22:14)
--- NOTE | 2018-11-19 19:55 | HP ---
DATE OF EXAM: 11/19/2018 HISTORY OF PRESENT ILLNESS: The patient is an 83-year-old white female who came to emergency room because of increasing shortness of breath with cough and congestion going on for almost a week, intermittent chest pain more so with coughing. The patient does admit that she has fever and chills last week, but her fever and chills are gone and she is still having cough and congestion with shortness of breath. PAST MEDICAL HISTORY: She has significant past medical history of: 1. Pacemaker placement. 2. History of hypertension. 3. Pancreatitis. 4. History of CA colon. 5. Status post partial colectomy. 6. History of alcohol dependence. 7. History of cholangitis, had ERCP done. 8. Iron deficiency anemia. PAST SURGICAL HISTORY: Significant for appendectomy and cholecystectomy. ALLERGIES: SHE IS ALLERGIC TO LEVAQUIN, METHIMAZOLE, AVELOX, PENICILLIN, VANCOMYCIN, AND SULFA. SOCIAL HISTORY: She lives with her . She used to be heavy smoker, still smoke here and there and used to drink heavy, but not anymore. PHYSICAL EXAMINATION: GENERAL: She is awake, alert and able to communicate. Mild shortness of breath. VITAL SIGNS: She is afebrile, pulse 108, respirations 22, and blood pressure 134/70. LUNGS: Bilateral fair airflow and has expiratory rhonchi both anteriorly and posteriorly. HEART: S1 and S2 audible. ABDOMEN: Soft and nontender. No rebound. No guarding. NEUROLOGIC: She is awake, alert, and able to communicate. EXTREMITIES: Bilateral legs, no edema. LABORATORY DATA: WBC 5.9, hemoglobin 12.6, hematocrit 39.4, and platelet 178. Chemistry; sodium 133, potassium 4.5, chloride 97, CO2 of 25, BUN 10, creatinine 0.8, blood sugar of 108, magnesium 1.3, and BNP 6860. ASSESSMENT: 1. Chronic obstructive pulmonary disease exacerbation. 2. History of pacemaker placement. 3. Hypermagnesemia. 4. Asthmatic bronchitis. PLAN: We will start the patient on IV steroids, IV antibiotics, and we start her on nebulizer treatment. Follow up cardiac enzymes and small dose of diuretics will be given. We will reevaluate the patient in a.m. Romulo Garrido MD [facility] # [id number]
[2018-11-19] MEDS: Albuterol-Ipratrop 3 mg / 0.5 (3 ml) UD IH SCH (20:38)
--- NOTE | 2018-11-19 20:54 | CARD ---
APPROVED REPORT Date of service: 11/19/2018 EKG Measurement Heart [id number] <Conclusion> Electronic ventricular pacemaker A-V pacer with atrial sensing, ventricular pacing with 1:1 capture
[2018-11-19] MEDS: Benzocaine/Menthol (Cepacol) Lozenge MT PRN (22:11)
[2018-11-20] MEDS: Albuterol-Ipratrop 3 mg / 0.5 (3 ml) UD IH SCH ×2 (01:33→07:51)
[2018-11-20] MEDS: MethylPREDNISolone 40 mg Vial IV SCH (06:10)
[2018-11-20] MEDS: Pantoprazole 40 mg EC Tab PO SCH (06:11)
[2018-11-20 08:28] LABS: FREE T4 1.41 ng/dL (0.78-2.19)
[2018-11-20 08:58] LABS: ALB/GLOB RATIO 1.2 (1.1-1.8); ALBUMIN 4.4 g/dL (3.0-4.8); ALT/SGPT < 6 U/L (7-56); AST/SGOT 32 U/L (14-36); BLOOD UREA NITROGEN 18 mg/dL (7-21); CALCIUM 9.6 mg/dL (8.4-10.5); GFR NON-AFRICAN AMERICAN > 60
[2018-11-20] MEDS: Benzocaine/Menthol (Cepacol) Lozenge MT PRN (09:13)
[2018-11-20] MEDS: Enoxaparin 30 mg Syringe SC SCH (09:13)
[2018-11-20] MEDS ORDERED: Levalbuterol 1.25 MG/3 ML Inhal Soln UD IH PRN (12:24)
[2018-11-20] MEDS: Levalbuterol 1.25 MG/3 ML Inhal Soln UD IH SCH ×2 (13:30→20:33)
--- NOTE | 2018-11-20 15:00 | PN ---
DATE: 11/20/2018 SUBJECTIVE: The patient is 83-year-old, seen and examined. States she feels much better. No nausea or vomiting. No diarrhea. She did have decreased appetite at home. Cough and congestion seems to be better. PHYSICAL EXAMINATION: VITAL SIGNS: She is afebrile, pulse 80, respiration 18, and blood pressure 120/71. LUNGS: Bilateral few expiratory rhonchi. HEART: S1 and S2 audible. ABDOMEN: Soft and nontender. No rebound. No guarding. NEUROLOGIC: She is awake and alert; able to communicate. LABORATORY DATA: Sodium 133, potassium 4.0, chloride 92, CO2 of 27, BUN 18, creatinine 0.9, and blood sugar of 143. LFTs are within normal limits. Three sets of troponin are negative. ASSESSMENT: 1. Chronic obstructive pulmonary disease exacerbation. 2. History of hypertension. 3. Status past pacemaker placement. 4. Asthmatic bronchitis. 5. Hypermagnesemia, that has been corrected. PLAN: We will continue the patient on IV steroid; cut down steroid to 30 every 12 hours and cut down 22 every 12 hours and change her nebulizer to Xopenex, and I will discontinue her telemetry and I will request for physical therapy evaluation, and we will reevaluate the patient in a.m. Romulo Garrido MD
[2018-11-20] MEDS: MethylPREDNISolone 40 mg Vial IVP SCH (22:57)
[2018-11-21] MEDS: Levalbuterol 1.25 MG/3 ML Inhal Soln UD IH SCH ×3 (00:56→07:20)
[2018-11-21] MEDS: Pantoprazole 40 mg EC Tab PO SCH (06:08)
[2018-11-21] MEDS: MethylPREDNISolone 40 mg Vial IVP SCH ×2 (10:52→22:25)
[2018-11-21] MEDS: Enoxaparin 30 mg Syringe SC SCH (10:55)
[2018-11-21] MEDS: Levalbuterol 0.63 MG/3 ML Inhal Soln UD IH SCH ×2 (13:35→20:00)
--- NOTE | 2018-11-21 13:36 | CP.PCM.PCO ---
Physician Communication Note - Physician Communication Note Physician Communication Note: COPD excacerbation, solumedrol 20mg q12, nebulizers, lasix IV, PT rec home
[2018-11-21 22:30] VITALS: RESP 18
--- NOTE | 2018-11-22 01:46 | PN ---
DATE: 11/21/2018 SUBJECTIVE: The patient is 83-year-old, seen and examined, feels a lot better, still has wet cough, mild shortness of breath. PHYSICAL EXAMINATION: VITAL SIGNS: She is afebrile, pulse 90, respirations 18, blood pressure 125/67. LUNGS: Bilateral fair airflow. No rhonchi or crackle. HEART: S1, S2 audible. ABDOMEN: Soft, nontender. No rebound. No guarding. NEUROLOGICAL: She is awake and alert, able to communicate. LABORATORY DATA: Sodium 133, potassium 4, chloride 92, CO2 of 27, BUN 18, creatinine 0.9, blood sugar is 143. ASSESSMENT AND PLAN: 1. Chronic obstructive pulmonary disease exacerbation. 2. Asthmatic bronchitis. 3. Hyponatremia. 4. Status post pacemaker replacement probably secondary to sick sinus syndrome. PLAN: We will continue the patient on doxycycline. Continue aspirin. She is on Lasix 40 mg p.o. daily. She is on deep venous thrombosis prophylaxis. We will continue on Protonix. Taper down her steroid. Physical therapy evaluation has been done. We will re-evaluate in the a.m. The patient remains stable. Make disposition plan in the a.m. Romulo Garrido MD
[2018-11-22] MEDS: Levalbuterol 0.63 MG/3 ML Inhal Soln UD IH SCH ×3 (02:50→13:25)
[2018-11-22] MEDS: Pantoprazole 40 mg EC Tab PO SCH (06:00)
[2018-11-22 06:35] VITALS: TEMP 97.9
[2018-11-22 07:27] LABS: ALB/GLOB RATIO 1.2 (1.1-1.8); ALBUMIN 3.7 g/dL (3.0-4.8); CALCIUM 8.7 mg/dL (8.4-10.5)
--- NOTE | 2018-11-22 09:46 | CARD ---
APPROVED REPORT Date of service: 11/22/2018 EXAM: Two-dimensional and M-mode echocardiogram with Doppler and color Doppler. INDICATION DIZZINESS/COPD 2D DIMENSIONS Left Atrium (2D)3.4 (1.6-4.0cm)IVSd1.2 (0.7-1.1cm) LVDd3.4 (3.9-5.9cm)PWd1.3 (0.7-1.1cm) LVDs2.3 (2.5-4.0cm)FS (%) 32.2 % LVEF (%)61.5 (>50%) M-Mode DIMENSIONS Aortic Root2.70 (2.2-3.7cm)Aortic Cusp Exc.1.50 (1.5-2.0cm) Aortic Valve AoV Peak Cowrgtmk342.0cm/Albertina Peak GR.12mmHg Mitral Valve MV E Awladvuu22.2cm/sMV A Enmfvmgu78.3cm/sE/A ratio0.8 TDI E/Lateral E'0.0E/Medial E'0.0 Tricuspid Valve TR Peak [id number]/sRAP [id number] Peak Gr.21mmHg [id number] LEFT VENTRICLE The left ventricle is normal size. There is mild concentric left ventricular hypertrophy. The left ventricular function is normal. The left ventricular ejection fraction is within the normal range. There is normal LV segmental wall motion. RIGHT VENTRICLE The right ventricle is normal size. The right ventricular systolic function is normal. There is a pacemaker lead in the right ventricle. ATRIA The left atrium size is normal. The right atrium size is normal. The interatrial septum is intact with no evidence for an atrial septal defect. AORTIC VALVE The aortic valve is normal in structure. There is mild aortic regurgitation. There is no aortic valvular stenosis. MITRAL VALVE The mitral valve is normal in structure. There is no mitral valve regurgitation noted. TRICUSPID VALVE The tricuspid valve is normal in structure. There is mild tricuspid regurgitation. PULMONIC VALVE The pulmonary valve is normal in structure. GREAT VESSELS The aortic root is normal in size. The IVC is normal in size and collapses >50% with inspiration. PERICARDIAL EFFUSION There is no pleural effusion. There is no pericardial effusion. <Conclusion> Normal chamber size. Mild concentric LVH. Normal LV systolic function. Mild AI. Mild TR.
[2018-11-22] MEDS: Enoxaparin 30 mg Syringe SC SCH (10:26)
[2018-11-22] MEDS: MethylPREDNISolone 40 mg Vial IVP SCH (10:30)
[2018-11-22 10:35] VITALS: BP 126/80
[2018-11-22 14:42] VITALS: PULSE 78; O2SAT 94
--- NOTE | 2018-11-22 15:45 | RAD ---
Date of service: 11/22/2018 HISTORY: F/U CHF compare COMPARISON: 11/19/2018 TECHNIQUE: Chest PA and lateral views FINDINGS: LUNGS: No active pulmonary disease. Linear scarring in the left middle lobe PLEURA: No significant pleural effusion identified. No pneumothorax apparent. CARDIOVASCULAR: Aortic calcification. Single lead pacemaker Normal cardiac size. No pulmonary vascular congestion. OSSEOUS STRUCTURES: No significant abnormalities. VISUALIZED UPPER ABDOMEN: Normal. OTHER FINDINGS: None. IMPRESSION: No active disease.
--- NOTE | 2018-11-22 22:20 | CON ---
DATE OF CONSULTATION: 11/22/2018 REASON FOR CONSULTATION: Cardiac evaluation, rule out congestive heart failure, admitted with shortness of breath. BRIEF CLINICAL HISTORY: This is an 83-year-old female with past medical history significant for nonobstructive coronary artery disease status post cardiac catheterization, history of pacemaker, history of psychogenic polydipsia, history of pancreatitis, history of alcohol abuse, history of colon cancer status post partial colectomy, came in with complaint of cough and increasing shortness of breath for a couple of days. She denies any chest pain. She denies any palpitation. PAST MEDICAL HISTORY: Past history is significant for pacemaker, history of psychogenic polydipsia, history of nonobstructive coronary artery disease, history of cardiac catheterization twice, found to be nonobstructive coronary artery disease in 2004 and 2013, history of pacemaker in 03/2016, history of paroxysmal atrial fibrillation, history of psychogenic polydipsia, history of hypothyroidism, and history of alcohol abuse. Previous cardiac workup as follows, the patient had an echocardiography on 03/18/2017 that showed ejection fraction of 55%, aortic sclerosis, mild aortic stenosis, mild mitral regurgitation and mild tricuspid regurgitation, mild systolic pressure of 40, small pericardial effusion and a pacemaker lead noted, history of cardiac catheterization in 2013, ejection fraction of 55% with normal coronaries. The patient has a prior cardiac catheterization in 2004, also shows essentially normal coronaries, pacemaker lead noted. SOCIAL HISTORY: Denies any history of smoking, but history of alcohol abuse in the past. States that she quit drinking for more than 2 years ago. History of psychogenic polydipsia. Prior the patient used to drink six to eight cans of beer every day. ALLERGIES: TO LEVAQUIN, PENICILLIN, VANCOMYCIN, AND SULFA. CURRENT MEDICATIONS: The patient is taking at home, metoprolol 25 mg daily and baby aspirin 81 mg daily. REVIEW OF SYSTEMS: As per HPI. PHYSICAL EXAMINATION: VITAL SIGNS: As follows; height of the patient 5 feet 4 inches, the patient is 130 pounds, body mass index of 21 kg per meter square. Rest of the vitals, temperature afebrile, heart rate 98, blood pressure 124/72, and respirations 18. HEENT: PERRLA. Extraocular muscles intact. NECK: Supple, no carotid bruit or thyromegaly. CHEST: Clear to auscultation. HEART: S1, S2 regular. ABDOMEN: Soft. EXTREMITIES: Clubbing and cyanosis negative. LABORATORY DATA: WBC 5.9, hemoglobin 12.6, hematocrit 39.4, and platelet count 178. Chemistry shows sodium 120, potassium 4.2, chloride 88, carbon dioxide of 27, anion gap of 16, BUN 14 and creatinine 1.2. Troponin 0.01 x3 negative. Admitting BNP is 6860. Chest x-ray on admission, has congestion consistent with CHF. EKG shows V-paced rhythm. IMPRESSION: An 83-year-old female with a past medical history significant for nonobstructive coronary artery disease, status post cardiac catheterization twice, history of pacemaker, history of psychogenic polydipsia, borderline hypertension, history of alcohol abuse, admitted with shortness of breath, mild congestion, chest x-ray consists of congestion. RECOMMENDATIONS: We will get echo to assess LV function. Continue metoprolol and give gentle diuretics, keep the fluid negative balance, repeat chest x-ray. We will follow with you. We will repeat the blood workup in the morning. We will follow with you. I will repeat the BNP level in the morning. Agreed to continue Lasix. We will follow with you as well as we will repeat the BNP tomorrow and chest x-ray. We will review the echo when it is done. We will change the Lasix timing to daily. We will repeat chest x-ray PA and lateral to assess pneumonia. Thank you Dr. Garrido for providing us the opportunity in taking care of the patient, Flor Chandler. Javier Swanson MD
--- NOTE | 2018-11-22 22:45 | DS ---
HISTORY OF PRESENT ILLNESS: The patient is an 83-year-old, seen and examined. She came in because of increasing cough, congestion, and shortness of breath with bilateral wheezing. The patient was started on IV antibiotic, IV steroid, doing very well, and wants to go home. No chest pain. No shortness of breath. PHYSICAL EXAMINATION: VITAL SIGNS: She is afebrile, pulse 88, respirations 18, and blood pressure 126/80. LUNGS: Bilateral fair airflow. No rhonchi or crackle. HEART: S1 and S2 audible. ABDOMEN: Soft and nontender. No rebound. No guarding. NEUROLOGIC: She is awake, alert, and able to communicate. LABORATORY DATA: Sodium 128, potassium 4.3, chloride 89, CO2 of 27, BUN 40, creatinine 1.2, and blood sugar of 116. ASSESSMENT: 1. Status post chronic obstructive pulmonary disease exacerbation. 2. History of hypertension. 3. History of pacemaker placement. 4. History of smoking in the past. 5. Concentric left ventricular hypertrophy. 6. Hyponatremia. PLAN: The patient was evaluated by Dr. Swanson also cleared from Cardiology point of view, so the patient is being discharged home on doxycycline 100 mg twice a day and Xopenex every 6 hours as needed. She will follow up in office to follow up on her hyponatremia. Romulo Garrido MD
== END 2018-11-22 19:10 | disposition home or self-care (01) | DRG 191 ==
LOC: ED 10:22 → ERH 13:02 → 2RSO 14:14 → 5RNO 11-20 18:49
PROVIDERS: ADMIT Internal Medicine; ATTEND Internal Medicine
PROC: 3E0F7GC Introduction of Other Therapeutic Substance into Respiratory Tract, Via Natural or Artificial Opening (ICD-10-PCS; principal; 2018-11-19)
DX: J44.1 Chronic obstructive pulmonary disease with (acute) exacerbation (principal); E87.1 Hypo-osmolality and hyponatremia; E83.42 Hypomagnesemia; F10.20 Alcohol dependence, uncomplicated; I25.10 Atherosclerotic heart disease of native coronary artery without angina pectoris; E03.9 Hypothyroidism, unspecified; I48.0 Paroxysmal atrial fibrillation; I11.9 Hypertensive heart disease without heart failure; K21.9 Gastro-esophageal reflux disease without esophagitis; E83.41 Hypermagnesemia; Z85.038 Personal history of other malignant neoplasm of large intestine; Z90.49 Acquired absence of other specified parts of digestive tract; Z79.82 Long term (current) use of aspirin; Z79.899 Other long term (current) drug therapy; Z95.0 Presence of cardiac pacemaker; Z87.891 Personal history of nicotine dependence; Z87.442 Personal history of urinary calculi